=== PATIENT | male | born 1995 | race Caucasian/White ===

== ENCOUNTER 2020-07-30 20:14 | Emergency (ER) | payer SELFPAY ==
--- NOTE | 2020-07-30 20:42 | PC.NURSE ---
i attempted to triage patient. no answer in the lobby at 2034 and 2039.
[2020-07-30 20:54] VITALS: BP 119/59; PULSE 88; RESP 16; TEMP 36.4; O2SAT 97; BMI 26.4
--- NOTE | 2020-07-30 22:02 | ED.SKABFB ---
HPI - Skin/Abscess/Foreign Bdy General Chief complaint: Skin/Abscess/Foreign Body Stated complaint: RIGHT ARM ABSCESSE AND RIGHT SIDE OF NECK Time Seen by Provider: 07/30/20 21:27 Source: patient Mode of arrival: Ambulatory Limitations: no limitations History of Present Illness HPI narrative: 24-year-old male. Admits to being an IV drug abuser. Has multiple track kerr on various portions of his body here for evaluation he thinks is an abscess in his right elbow and on his right ear. He states that he was able to express a small amount of material from the wound on his right ear. He states that the 2 lesions on the inside of his right elbow have been growing for the past couple days. One of them he was able to express a small amount of material out of and did decrease in size. The other 1 he has not attempted to drain. Related Data Previous Rx's Medication Instructions Recorded doxycycline hyclate 100 mg PO BID 10 Days #20 tab 07/30/20 Allergies Allergy/AdvReac Type Severity Reaction Status Date / Time No Known Drug Allergies Allergy Verified 07/30/20 22:07 Review of Systems Constitutional Constitutional: Denies fever(s) and Denies headache(s) ENT Ears, Nose, Mouth, and Throat: Denies headache(s) Integumentary/Breasts Comments: Multiple skin lesions concern for abscess Neurologic Neurologic: Denies behavioral changes and Denies headache(s) Psychiatric Psychiatric: Denies behavioral changes Hematologic/Lymphatic Hematologic/Lymphatic: Denies easy bleeding and Denies easy bruising Allergic/Immunologic Allergic/Immunologic: Denies urticaria Patient History Medical History IV drug abuse (Acute) Social History Smoking Status: Current every day smoker Smoking Status: Current every day smoker tobacco type: cigarettes and vaping alcohol intake frequency: 0-2 drinks per day Substance Use Type: heroin Exam Initial Vital Signs Initial Vital Signs: Vital Signs Temperature 97.6 F 07/30/20 20:54 Pulse Rate 88 07/30/20 20:54 Respiratory Rate 16 07/30/20 20:54 Blood Pressure 119/59 L 07/30/20 20:54 Pulse Oximetry 97 07/30/20 20:54 Const General: cooperative and comfortable Limitations: mental status not altered HENMD Head: normal to inspection and normocephalic Resp Effort & Inspection: normal respiratory effort Skin Other: Patient with a small area of crusting on his right ear. There is no active drainage. There is no erythema around the area. Patient also has 2 areas of redness on the inside of his right elbow. Extrem Other: Full range of motion right elbow Psych Appearance: grossly normal and well kempt Course Orders Ordered: Discontinued Medications Doxycycline Hyclate (Vibramycin) 100 mg PO NOW ONE Stop: 07/30/20 22:03 Last Admin: 07/30/20 22:07 Dose: 100 mg Documented by: KEVIN Vital Signs Vital signs: Vital Signs - 8 hr 07/30/20 20:54 07/30/20 22:11 Temperature 97.6 F Pulse Rate 88 80 Respiratory Rate 16 16 Blood Pressure 119/59 L 104/61 Pulse Oximetry 97 100 MDM - Skin/Abscess/Foreign Bdy MDM Narrative Medical decision making narrative: Bedside ultrasound shows no underlying abscess in the 2 areas in the right antecubital fossa. No indication for incision and drainage. Given his multiple track kerr and also the redness around the area will start him on antibiotics. He was given 1st dose here. Prescription for remainder. Was given return precautions follow up instructions. He expressed understanding and agreement. Discharge Plan Departure Patient Disposition: Home Clinical Impression: Cellulitis Discharge Date/Time: 07/30/20 22:11 Instructions: DI for Cellulitis -- Adult Activity Restrictions/Additional Instructions: Take the antibiotics as directed. Contact your primary provider for follow-up. Return to the emergency department for any new or worsening symptoms Prescriptions: New doxycycline hyclate 100 mg tablet 100 mg PO BID 10 Days Qty: 20 RF: 0 Referrals: Scottie Almanza MD [Primary Care Provider] -
[2020-07-30] MEDS: DOXYCYCLINE HYCLATE 100 MG TABLET PO (22:07)
[2020-07-30 22:11] VITALS: BP 104/61; PULSE 80; RESP 16; O2SAT 100
== END 2020-07-30 22:11 | disposition home or self-care (01) ==
PROVIDERS: Emergency Provider Emergency Medicine; Family Provider Family Medicine; PCP Family Medicine
DX: L03.113 Cellulitis of right upper limb (principal)
CPT/HCPCS: 99283

== ENCOUNTER 2020-09-18 17:42 | Inpatient (IN) | payer OTHER, MEDICAID, SELFPAY ==
[2020-09-18] VITALS (8 sets, daily range): BP systolic 115–144; BP diastolic 57–86; PULSE 78–106; RESP 16; TEMP 36.8–37.3; O2SAT 98–100; BMI 20.2
--- NOTE | 2020-09-18 19:58 | DI.CT.S_ITS ---
PROCEDURE: CT UE LT W CON INDICATIONS: severe pain and swelling, IVDA, deep abscess? TECHNIQUE: After the administration of intravenous contrast, 3 mm axial sections acquired of the left arm, with coronal and sagittal reformats. COMPARISON: None. FINDINGS: Image quality: Excellent. Bones: No fracture or dislocation. No periosteal reaction or sclerosis. No osseous erosion. Soft tissues: Ill-defined subcutaneous fluid collection in the region of the antecubital fossa measuring 4.9 x 2.2 x 1.2 cm, volume of 7 cc, (4/149 and 6/351). There is diffuse subcutaneous edema in the forearm and distal aspect of the proximal left arm. No suspicious calcifications. No radiopaque foreign body. No vascular filling defect identified. Enlarged left axillary lymph node with a short axis diameter of 1 cm, (6/116). Additional shotty left axillary lymph nodes. IMPRESSION: 1. Suspect small abscess in the antecubital fossa of the left arm. Longest dimension measures 4.9 cm and volume of 7 cc. 2. Enlarged left axillary lymph node. Suspect reactive etiology. 3. Underlying bone is unremarkable. No fracture. Dictated by: Tae Maloney M.D. on 09/18/2020 at 21:06 Approved by: Tae Maloney M.D. on 09/18/2020 at 21:16
[2020-09-18 20:01] LABS: Add Manual Diff / Slide Review NO; Basophils Absolute Auto 200 /uL (0-100); Basophils Percent Auto 0.6 % (0-2); Eosinophils Absolute Auto 100 /uL (0-450); Eosinophils Percent Auto 0.4 % (2-4); Hematocrit 39.9 % (41-53); Hemoglobin 13.1 g/dL (13.5-17.5); Lymphocytes Absolute Auto 2800 /uL (1100-4500); Lymphocytes Percent Auto 10.9 % (25-40); Mean Corpuscular HGB Conc 32.8 % (30-36); Mean Corpuscular Hemoglobin 27.8 PG (26-34); Mean Corpuscular Volume 84.7 fL (80-100); Monocytes Absolute Auto 1400 /uL (0-900); Monocytes Percent Auto 5.2 % (3-14); Neutrophils Absolute Auto 21500 /uL (1500-7000); Neutrophils Percent Auto 82.9 % (50-75); Platelet Count 453 X10^3/uL (150-400); Red Blood Cell Count 4.71 X10^6/uL (4.5-5.9); Red Cell Distribution Width 14.8 % (11.6-14.8)
[2020-09-18 20:16] LABS: BUN Creatinine Ratio 22.2 (6-22); Blood Urea Nitrogen 14 mg/dL (9-20); Carbon Dioxide 27 mmol/L (22-32); Chloride 104 mmol/L (98-107); Estimated Glomerular Filt Rate > 60.0 mL/min (>60); Glucose 111 mg/dL (70-100); HEMOLYSIS 26 (0-50); Potassium 4.5 mmol/L (3.4-5.1); Sodium 138 mmol/L (137-145)
[2020-09-18] MEDS: KETOROLAC 60 MG/2 ML VIAL 15 MG IV (20:16)
[2020-09-18] MEDS: VANCOMYCIN 1,500 MG/300 ML PIGGYBACK 200 MG IV (20:17)
--- NOTE | 2020-09-18 20:33 | ED.SKABFB ---
HPI - Skin/Abscess/Foreign Bdy General Chief complaint: Skin/Abscess/Foreign Body Stated complaint: left arm swelling & pain Time Seen by Provider: 09/18/20 18:58 Source: patient Mode of arrival: Ambulatory Limitations: no limitations History of Present Illness HPI narrative: 24-year-old male smoker with history of IV drug abuse presents with severe pain and swelling of his left forearm, stating that he last injected about 2 weeks ago. He denies any fever, chills nor nausea or vomiting. He denies any drainage at home. He has had no runny nose, sore throat or cough and denies any exposure to persons known to have COVID MD complaint: abscess/boil Onset (ago): day(s) Tetanus up to date: no Location: LUE Severity: severe Severity scale (1-10): 10 Quality: burning and aching Pain Consistency: constant Relieving factors: none Exacerbating factors: palpation Context: IVDA Associated symptoms: denies other symptoms Treatments prior to arrival: none Related Data Home Medications Medication Instructions Recorded Confirmed No Known Home Medications 09/18/20 09/18/20 Allergies Allergy/AdvReac Type Severity Reaction Status Date / Time No Known Drug Allergies Allergy Verified 09/18/20 17:52 Review of Systems Constitutional Constitutional: Denies chills, Denies fatigue, Denies fever(s), Denies frequent falls, Denies lethargy and Denies weakness Eyes Eyes: Denies change in vision, Denies eye discharge, Denies irritation and Denies loss of vision ENT Ears, Nose, Mouth, and Throat: Denies change in voice, Denies dizziness, Denies neck pain, Denies sore throat and Denies throat swelling Cardiovascular Cardiovascular: Denies chest pain, Denies irregular heart rhythm, Denies lightheadedness, Denies palpitations, Denies dyspnea, Denies dyspnea on exertion and Denies orthopnea Respiratory Respiratory: Denies cough, Denies dyspnea, Denies dyspnea on exertion and Denies wheezing Gastrointestinal Gastrointestinal: Denies abdominal pain, Denies change in bowel habits, Denies diarrhea, Denies nausea and Denies vomiting Musculoskeletal Musculoskeletal: Denies neck pain and Denies numbness Integumentary/Breasts Skin/Breast: Denies pruritus, Reports erythema, Denies rash, Reports skin pain, Reports skin swelling and Denies wounds Neurologic Neurologic: Denies behavioral changes, Denies confusion, Denies dizziness, Denies frequent falls, Denies loss of vision, Denies numbness and Denies weakness Psychiatric Psychiatric: Denies anxiety, Denies behavioral changes, Denies confusion, Denies depression, Denies homicidal ideation and Denies suicidal ideation Endocrine Endocrine: Denies fatigue, Denies flushing and Denies palpitations Hematologic/Lymphatic Hematologic/Lymphatic: Denies easy bruising Allergic/Immunologic Allergic/Immunologic: Denies urticaria, Denies throat swelling and Denies wheezing Patient History Medical History (Updated 09/19/20 @ 03:51 by Hans Chinchilla DO) Atrial fibrillation IV drug abuse MRSA exposure Family History (Updated 09/18/20 @ 23:44 by ZULMA Lee) Father No significant medical problems Mother No significant medical problems Grandfather Cancer Grandfather Cancer Social History household members: family Smoking Status: Current every day smoker Smoking Status: Current every day smoker tobacco type: cigarettes and vaping alcohol intake frequency: 0-2 drinks per day Substance Use Type: heroin and IV drugs Exam Narrative Exam Narrative: GENERAL: [24] year old patient appears stated age. Well-nourished, well-developed patient, in obvious distress. Complaining of pain in his left arm HEAD: Atraumatic. Normocephalic. EYES: Pupils equal round and reactive. Extraocular motions intact. No scleral icterus. No injection or drainage. ENT: Nose without bleeding, purulent drainage. Throat without erythema, tonsillar hypertrophy or exudate. Airway patent. NECK: Trachea midline. Non tender CARDIOVASCULAR: Regular rate and rhythm without murmurs, gallops, or rubs. RESPIRATORY: Clear to auscultation. Breath sounds equal bilaterally. No wheezes, rales, or rhonchi. GASTROINTESTINAL: Abdomen soft, non-tender, nondistended. EXTREMITIES: Significant pain, swelling and redness on the volar aspect of left forearm just distal to the elbow, no drainage. Compartments are soft, cap refill less than 2 seconds sensation and strength intact, no signs of compartment syndrome.. BACK: Nontender without deformity or crepitance. No flank tenderness. NEURO: AOx3. SKIN: No rash or erythema of visible areas Initial Vital Signs Initial Vital Signs: Vital Signs Temperature 99.1 F 11/17/20 17:50 Pulse Rate 89 09/18/20 17:50 Respiratory Rate 16 09/18/20 17:50 Blood Pressure 121/81 09/18/20 17:50 Pulse Oximetry 99 09/18/20 17:50 Course Course Course Narrative: though the Administrative tab states PCP is Dr. Almanza the patient states that is NOT true and he has no PCP. Orders Ordered: ED Orders 09/18/20 19:45 Basic Metabolic Panel Stat Complete Blood Count AUTO DIFF Stat 09/18/20 19:58 CT UE LT w con Stat 09/18/20 20:30 COVID19 Stat Acetaminophen (Acetaminophen 325 Mg Tablet) 650 mg PO Q6HR PRN PRN Reason: Fever/Mild Pain (1-3) Bisacodyl (Bisacodyl 10 Mg Supp) 10 mg OR PRN PRN PRN Reason: Constipation Docusate Sodium (Docusate 100 Mg Capsule) 100 mg PO BID PRINCE Hydromorphone HCl (Hydromorphone 0.5 Mg Inj) 0.5 mg IV Q4H PRN PRN Reason: Pain, Moderate (4-6) Last Admin: 09/19/20 02:07 Dose: 0.5 mg Documented by: YAMEL Sodium Chloride (Normal Saline 0.9%) 1,000 mls @ 100 mls/hr IV CONT [facility] Last Admin: 09/19/20 00:15 Dose: 100 mls/hr Documented by: YAMEL Vancomycin HCl/Dextrose (Vancomycin) 1,500 mg in 300 mls @ 200 mls/hr IV Q12H [facility] Last Admin: 09/19/20 00:16 Dose: 200 mls/hr Documented by: YAMEL Naloxone HCl (Naloxone 0.4 Mg/Ml Vial) 0.2 mg IV Q2MIN PRN PRN Reason: Opiate Reversal Nicotine (Nicotine 21 Mg Patch) 21 mg TOP DAILY [facility] Last Admin: 09/19/20 00:39 Dose: 21 mg Documented by: YAMEL Ondansetron HCl (Ondansetron 4 Mg/2 Ml Inj) 4 mg IV Q8HR PRN PRN Reason: Nausea And Vomiting Oxycodone HCl (Oxycodone Ir 5 Mg Tablet) 5 mg PO Q4HR PRN PRN Reason: Pain, Moderate (4-6) Oxycodone HCl (Oxycodone Ir 10 Mg Tablet) 10 mg PO Q4HR PRN PRN Reason: Pain, Severe (7-10) Polyethylene Glycol (Polyethylene Glycol 3350 17 Gm Powd.Pack) 17 gm PO DAILY PRN PRN Reason: Constipation Discontinued Medications Hydromorphone HCl (Hydromorphone 0.5 Mg Inj) 0.5 mg IV NOW ONE Stop: 09/18/20 21:19 Last Admin: 09/18/20 21:25 Dose: 0.5 mg Documented by: BATSHEVA Hydromorphone HCl (Hydromorphone 0.5 Mg Inj) 1 mg IV NOW ONE Stop: 09/18/20 22:46 Last Admin: 09/18/20 22:51 Dose: 1 mg Documented by: GIOVANNA Vancomycin HCl/Dextrose (Vancomycin) 1,500 mg in 300 mls @ 200 mls/hr IV NOW ONE Stop: 09/18/20 21:29 Last Infusion: 09/18/20 22:03 Dose: 0 mls/hr Documented by: Admin: 09/18/20 20:17 Dose: 200 mls/hr Documented by: RADHA Ketorolac Tromethamine (Ketorolac 60 Mg/2 Ml Vial) 15 mg IV NOW ONE Stop: 09/18/20 19:59 Last Admin: 09/18/20 20:16 Dose: 15 mg Documented by: RADHA Oxycodone HCl (Oxycodone Ir 5 Mg Tablet) 5 mg PO Q6HR PRN PRN Reason: Pain, Moderate (4-6) Oxycodone HCl (Oxycodone Ir 10 Mg Tablet) 10 mg PO Q6HR PRN PRN Reason: Pain, Severe (7-10) Last Admin: 09/19/20 00:14 Dose: 10 mg Documented by: YAMEL Vancomycin HCl (Vancomycin Per Pharmacy) 1 request MISC NOW ONE Stop: 09/18/20 22:50 Consultations Consultation #1: call to gen surg (Elvin) who has reviewed CT and agrees with admission, but asks that patient be admitted to hospitalist, NPO after midnight, possible/likely OR tomorrow Consultation #2: Hospitalist is happy to accept Vital Signs Vital signs: Vital Signs - 8 hr 09/18/20 20:05 09/18/20 20:30 11/17/20 21:00 Pulse Rate 81 78 83 Blood Pressure 144/81 H 138/86 Pulse Oximetry 100 100 99 09/18/20 21:30 09/18/20 22:00 09/18/20 22:30 Pulse Rate 88 85 85 Blood Pressure 142/71 H 115/67 117/57 L Pulse Oximetry 98 100 99 MDM - Skin/Abscess/Foreign Bdy Lab Data Result diagrams: 09/18/20 19:45 09/18/20 19:45 Labs: Lab Results 09/18/20 09/18/20 09/18/20 Range/Units 19:45 19:45 20:30 WBC 26.0 H (4.5-11.0) X10^3/uL RBC 4.71 (4.5-5.9) X10^6/uL Hgb 13.1 L (13.5-17.5) g/dL Hct 39.9 L (41-53) % MCV 84.7 (80-100) fL MCH 27.8 (26-34) PG MCHC 32.8 (30-36) % RDW 14.8 (11.6-14.8) % Plt Count 453 H (150-400) X10^3/uL Neut % (Auto) 82.9 H (50-75) % Lymph % (Auto) 10.9 L (25-40) % [place] % (Auto) 5.2 (3-14) % Eos % (Auto) 0.4 L (2-4) % Baso % (Auto) 0.6 (0-2) % Neut # (Auto) 73932 H (0752-2472) /uL Lymph # (Auto) 2800 (9667-4267) /uL [place] # (Auto) 1400 H (0-900) /uL Eos # (Auto) 100 (0-450) /uL Baso # (Auto) 200 H (0-100) /uL Sodium 138 (137-145) mmol/L Potassium 4.5 (3.4-5.1) mmol/L Chloride 104 (98-107) mmol/L Carbon Dioxide 27 (22-32) mmol/L BUN 14 (9-20) mg/dL Creatinine 0.63 L (0.66-1.25) mg/dL Estimated GFR > 60.0 (>60) mL/min BUN/Creatinine Ratio 22.2 H (6-22) Glucose 111 H (70-100) mg/dL Calcium 9.0 (8.4-10.2) mg/dL COVID-19 PCR Negative (Negative) Imaging Data LUE CT: Radiologist's Impression: [address] [id number] Scan ReportSigned Patient: Gus Huizar MMR#: [id number]: [id number]:[id number]/Sex: 24 / MDate of Service: 09/18/20Loc: EDAccession Number: [id number] Procedure: CT UE LT w con Ordering Provider: Hans Chinchilla D.O. PROCEDURE: CT UE LT W CON INDICATIONS: severe pain and swelling, IVDA, deep abscess? TECHNIQUE: After the administration of intravenous contrast, 3 mm axial sections acquired of the left arm, with coronal and sagittal reformats. COMPARISON: None. FINDINGS: Image quality: Excellent. Bones: No fracture or dislocation. No periosteal reaction or sclerosis. No osseous erosion. Soft tissues: Ill-defined subcutaneous fluid collection in the region of the antecubital fossa measuring 4.9 x 2.2 x 1.2 cm, volume of 7 cc, (4/149 and 6/351). There is diffuse subcutaneous edema in the forearm and distal aspect of the proximal left arm. No suspicious calcifications. No radiopaque foreign body. No vascular filling defect identified. Enlarged left axillary lymph node with a short axis diameter of 1 cm, (6/116). Additional shotty left axillary lymph nodes. IMPRESSION: 1. Suspect small abscess in the antecubital fossa of the left arm. Longest dimension measures 4.9 cm and volume of 7 cc. 2. Enlarged left axillary lymph node. Suspect reactive etiology. 3. Underlying bone is unremarkable. No fracture. Dictated by: Tae Maloney M.D. on 09/18/2020 at 21:06 Approved by: Tae Maloney M.D. on 09/18/2020 at 21:16 Discharge Plan Departure Patient Disposition: Admitted As Inpatient Clinical Impression: Abscess of skin or subcutaneous tissue, Cellulitis Admit Date/Time: 09/18/20 22:36 Admit Provider: Jose Restrepo
--- NOTE | 2020-09-18 20:49 | PC.NURSE ---
While the patient was in the lobby following triage and before being moved to room 2 he informed me 2 times that his pain was getting worse. I informed him that I was waiting for a room each time checking pts radial pulse and cap refill which were normal .
[2020-09-18 21:06] LABS: COVID19 -Nasal RAPID Negative (Negative)
[2020-09-18] MEDS: HYDROMORPHONE 0.5 MG INJ IV (21:25)
[2020-09-18] MEDS: HYDROMORPHONE 0.5 MG INJ 1 MG IV (22:51)
--- NOTE | 2020-09-18 23:26 | P.HP_ITS ---
History of Present Illness History of Present Illness Date Patient Seen: 09/18/20 Time Patient Seen: 23:05 Chief complaint: left arm swelling & pain Narrative: Mr. Gus Huizar is 24-year-old male with a past medical history significant for IV drug abuse, polysubstance abuse, atrial fibrillation and history of cerebellar aneurysm who presents to the ER with left arm pain. Patient presents with swelling from the distal upper arm to the hand with an abscess in the left antecubital fossa. Patient endorses IV drug abuse for the last several months using heroin as well as endorses smoking occasional meth. He last injected 2 weeks ago in left arm and over the last several days has had progressive pain swelling and redness. Patient had similar presentation on 07/30/2020 when he presented to the ER for cellulitis of the right antecubital fossa at which time he was treated and discharged on doxycycline. Patient further and sources that other individuals in the household have MRSA. Patient states he has been sober for the last 2 weeks and has been going through withdrawals complaining of runny nose but denies nausea vomiting, abdominal pain or tremors. He denies complaints of fevers or chills, flu or cold symptoms aside from the runny nose as described. He has had no known COVID-19 exposures. He denies headaches, dizziness or vision changes. Reports no complaints of chest pain or palpitations though he does report a history of atrial fibrillation with the last episode occurring approximately 6 months ago. He states that he can tell when the arrhythmia occurs and is able to cough and terminate the rhythm. Patient denies shortness of breath cough or wheeze. He denies epigastric or abdominal pain has a nausea vomiting and endorses a history of constipation secondary to opiate abuse. 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 Upon arrival to the ER patient has a temperature 99.1?, heart rate of 89, blood pressure 121/81, respirations 16 saturating 99% on room air. A CT of the left upper extremity is obtained finding a fluid collection in the region of the a antecubital fossa measuring 4.9 by 2.2 x 1.2 cm with diffuse subcutaneous edema in the forearm and distal proximal arm, enlarged left axillary lymph node. On laboratory analysis he has white count of 26.0, hemoglobin of 13.1, hematocrit of 39.9 platelets 153. His electrolytes within normal range knee has a BUN of 14 and creatinine 0.63. His nonfasting glucose is 111. COVID screening is negative. Dr. Oconnor is contacted through the emergency department increase to consult. The patient admitted to the medicine service for cellulitis with abscess. Patient History Medical History (Updated 09/18/20 @ 23:43 by ZULMA Lee) Atrial fibrillation IV drug abuse MRSA exposure Family & Social History Family History (Updated 09/18/20 @ 23:44 by ZULMA Lee) Father No significant medical problems Mother No significant medical problems Grandfather Cancer Grandfather Cancer Safety & Behavioral: Feels Safe in Current Yes Environment Been Physically Hurt or No Threatened By a Person Tobacco & Substance use: Smoking Status Current every day smoker alcohol intake frequency 0-2 drinks per day Substance Use Type IV drugs,heroin Meds Home Medications and Allergies Home Medications Medication Instructions Recorded Confirmed Type No Known Home Medications 09/18/20 09/18/20 History Allergies Allergy/AdvReac Type Severity Reaction Status Date / Time No Known Drug Allergies Allergy Verified 09/18/20 17:52 Review of Systems Review of Systems ROS: Yes All systems reviewed with the patient and are negative except as otherwise documented Exam Vital Signs (past 8 hours): - 09/18/20 17:50 09/18/20 20:05 09/18/20 20:30 Temperature 99.1 F Pulse Rate 89 81 78 Respiratory Rate 16 Blood Pressure 121/81 144/81 H Pulse Oximetry 99 100 100 09/18/20 21:00 Temperature Pulse Rate 83 Respiratory Rate Blood Pressure 138/86 Pulse Oximetry 99 Oxygen Delivery Method Room Air Narrative Exam Narrative: GENERAL APPEARANCE: well developed, slender male, BMI 20.2 in mild pain without acute distress. HEENT: Normocephalic, PERRLA, conjunctiva clear, EOMs intact without nystagmus, no sinus tenderness to percussion, no rhinorrhea, mucous membranes are moist and pink without lesions or exudate. NECK/THYROID: neck supple, no JVD, no carotid bruit, no thyromegaly, trachea midline. LYMPH NODES: no cervical or supraclavicular lymphadenopathy. SKIN: [place], warm and dry, no visible lesions, rashes, ulcerations or petechiae. HEART: Tachycardic rate with a regular rhythm, S1-S2, no murmur, no rubs or gallops, brisk capillary refill, no edema LUNGS: clear to auscultation bilaterally, no coarseness crackles or wheezing, no cough present CHEST: Symmetrical movement, no accessory muscle use, good tidal volume. ABDOMEN: Soft, scaphoid, no abdominal tenderness, no guarding or peritoneal signs, no organomegaly, no flank or suprapubic tenderness, active bowel tones. BACK: Normal curvature, nontender to palpation, no CVA tenderness on percussion EXTREMITIES: Swelling and redness LUE distal 3rd of upper arm extending to hand, marked redness with abscess medial left antecubital fossa, distal circulation movement intact. NEUROLOGIC: AAO x4, cranial nerves II-XII grossly intact, D scree sensation ulnar and radial aspects of left hand onset since arriving in ER. PSYCH: Good eye contact, briskly interactive, cooperative, stable behavior. Objective Labs Result Diagrams: 09/18/20 19:45 09/18/20 19:45 Labs: Laboratory Results - last 24 hr 09/18/20 09/18/20 09/18/20 19:45 19:45 20:30 WBC 26.0 H RBC 4.71 Hgb 13.1 L Hct 39.9 L MCV 84.7 MCH 27.8 MCHC 32.8 RDW 14.8 Plt Count 453 H Neut % (Auto) 82.9 H Lymph % (Auto) 10.9 L [place] % (Auto) 5.2 Eos % (Auto) 0.4 L Baso % (Auto) 0.6 Neut # (Auto) 85620 H Lymph # (Auto) 2800 [place] # (Auto) 1400 H Eos # (Auto) 100 Baso # (Auto) 200 H Sodium 138 Potassium 4.5 Chloride 104 Carbon Dioxide 27 BUN 14 Creatinine 0.63 L Estimated GFR > 60.0 BUN/Creatinine Ratio 22.2 H Glucose 111 H Calcium 9.0 COVID-19 PCR Negative Assessment & Plan Assessment & Plan narrative: This is a 24-year-old male patient with a history of IV drug abuse with heroin who presents with cellulitis with abscess formation of the left arm. 1. Cellulitis left arm with abscess left antecubital fossa, acute, present on admission, active. -patient reports onset swelling 2 weeks ago with formation of abscess over the last few days. -CT scan finds of wound collection in the region of the and acute fossa ti[place] uring 4.9 x 2.2 x 1.2 cm. Diffuse subcutaneous edema the form and distal proximal arm. -white count is elevated at 26.0. Patient endorses exposure to MRSA from other household members. Will obtain MRSA PCR. -ordered vancomycin 1500 mg IV every 12 hours 1st dose given in the ER, requested pharmacy to continue dosing. -Dr. Oconnor has agreed to consult and we appreciate her evaluation and recommen dations. -patient will be NPO, IV normal saline 100 mL per hour. -will recheck CBC in the morning 2. IV drug abuse, chronic. -patient endorses only injecting care when but has also smoked methamphetamine. -will obtain a urine drug screen. -patient states his desire to quit reports being sober for 2 weeks and reports going through withdrawal symptoms relieved with Dilaudid administered in the em ergency department. -patient had previous cellulitis without abscess in the right arm that was seen in the ER 2 months ago is successfully treated outpatient with doxycycline. -lengthy discussion and teaching on drug abuse, complications and risks. 3. Tobacco Abuse, chronic. -patient reports smoking 1.5-2 packs per day though reports he is trying to quit cigarettes as well. -counseling on smoking greater than 3 and less than 10 minutes. -ordered topical nicotine patch. 4. History of paroxysmal atrial fibrillation, presently in sinus rhythm chronic, stable. -patient reports last episode occurred approximately 6 months ago. He is able to convert the rhythm with coughing. -patient states he was hospitalized with a rhythm, will attempt to obtain medical records. VTE prophylaxis: SCDs, no chemical prophylaxis pending surgery IV fluid: Normal saline 100 cc per Diet: NPO Code status: Full code, the patient designates his mother Aliza Huizar to be his surrogate decision maker. The patient is admitted to the hospital due to the severity of his symptoms and risk for complications and adverse events related to cellulitis and abscess requiring IV antibiotics and surgical intervention. The patient is admitted as an inpatient with expected length of stay to be greater than 2 midnights. COVID-19 COVID-19 status: Negative Result date/Date tested (Pos, Neg/Pending): 09/18/20 Scores GCS [place] coma scale eye opening: Spontaneous [place] coma scale verbal response: Orientated [place] coma scale motor response: Obey commands [place] coma scale total score: 15
[2020-09-19] VITALS (20 sets, daily range): BP systolic 96–141; BP diastolic 41–80; PULSE 88–108; RESP 12–22; TEMP 36.7–39.6; O2SAT 95–100; BMI 20.2
[2020-09-19] MEDS: OXYCODONE IR 10 MG TABLET PO ×3 (00:14→08:08)
[2020-09-19] MEDS: SODIUM CHLORIDE 0.9% 1,000 ML 100 ML IV ×2 (00:15→10:12)
[2020-09-19] MEDS: VANCOMYCIN 1,500 MG/300 ML PIGGYBACK 200 MG IV (00:16)
[2020-09-19] MEDS: NICOTINE 21 MG PATCH TOP (00:39)
[2020-09-19] MEDS: HYDROMORPHONE 0.5 MG INJ IV (02:07)
[2020-09-19] MEDS: HYDROMORPHONE 1 MG INJ IV ×2 (04:38→10:12)
[2020-09-19 07:23] LABS: Add Manual Diff / Slide Review NO; Basophils Absolute Auto 200 /uL (0-100); Basophils Percent Auto 0.7 % (0-2); Eosinophils Absolute Auto 100 /uL (0-450); Eosinophils Percent Auto 0.2 % (2-4); Hematocrit 37.2 % (41-53); Hemoglobin 12.4 g/dL (13.5-17.5); Lymphocytes Absolute Auto 2500 /uL (1100-4500); Lymphocytes Percent Auto 10.8 % (25-40); Mean Corpuscular HGB Conc 33.3 % (30-36); Mean Corpuscular Volume 84.2 fL (80-100); Monocytes Absolute Auto 1900 /uL (0-900); Neutrophils Absolute Auto 19000 /uL (1500-7000); Neutrophils Percent Auto 80.3 % (50-75); Platelet Count 408 X10^3/uL (150-400); Red Blood Cell Count 4.42 X10^6/uL (4.5-5.9); Red Cell Distribution Width 15.1 % (11.6-14.8); White Blood Cell Count 23.7 X10^3/uL (4.5-11.0)
[2020-09-19] MEDS: DOCUSATE 100 MG CAPSULE PO ×2 (08:07→21:26)
[2020-09-19] MEDS: PIPERACILLIN-TAZO 4.5 GM/100 ML FROZ.PIGGY IV ×3 (08:18→18:44)
--- NOTE | 2020-09-19 08:46 | PM.CN ---
History of Present Illness Consult details Date Patient Seen: 09/19/20 Time Patient Seen: 08:47 Chief complaint: left arm swelling & pain Reason for consult: left arm cellulitis/abscess Narrative: This is a 24 yo man w PMH of IVDA, polysubstance abuse, A fib, and history of cerebellar aneurysm who came into the ER last night with left arm pain and swelling for 3-4 days. He reports IV drug abuse for the last several months using heroin as well as occasionally smoking meth. He last injected 2 weeks ago in left arm and over the last several days has had progressive pain, swelling, and redness of the left mid arm around the AC fossa. He came in with a similar presentation on 07/30/2020 at which time he was treated and discharged on doxycycline. He reports that other individuals in the household have MRSA. ROS: Patient states he has been sober for the last 2 weeks and has been going through withdrawals complaining of runny nose but denies nausea vomiting, abdominal pain or tremors. He denies fever/chills, flu or cold symptoms aside from the runny nose as described. He has had no known COVID-19 exposures. He denies headaches, dizziness or vision changes. Reports no complaints of chest pain or palpitations though he does report a history of atrial fibrillation with the last episode occurring approximately 6 months ago. He states that he can tell when the arrhythmia occurs and is able to cough and terminate the rhythm. Patient denies shortness of breath cough or wheeze. He denies epigastric or abdominal pain has a nausea vomiting and endorses a history of constipation secondary to opiate abuse. 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 Thirteen system review is otherwise negative other than as mentioned below and in HPI. PE: GENERAL: Alert, uncomfortable but in no acute distress, pale, mildly diaphoretic. Appears stated age. Answers questions promptly and appropriately. Vital signs noted. HENT: Normocephalic, atraumatic. Hearing intact. EYES: Conjunctiva pink, sclera white, no periorbital swelling. CARDIOVASCULAR: Regular rate. No pedal edema. RESPIRATORY: Non-tachypneic, breathing comfortably on room air. GASTROINTESTINAL: Abdomen soft and non-distended Extremities: Left upper extremity with moderate edema and erythema in proximal forearm around the AC fossa. The area is very tender to palpation, and on passive range of motion of the elbow. His compartments are soft, and and he has normal intact strength, sensation, and range of motion in the right hand and forearm. NEURO: Alert and Oriented X 3. No gross sensory deficits, or cognitive issues. PSYCH: Appropriate affect and mood. Meds Home Medications and Allergies Home Medications Medication Instructions Recorded Confirmed Type No Known Home Medications 09/18/20 09/18/20 History Allergies Allergy/AdvReac Type Severity Reaction Status Date / Time No Known Drug Allergies Allergy Verified 09/18/20 17:52 Exam Vital Signs (past 8 hours): - 09/19/20 04:20 Temperature 98.0 F Pulse Rate 99 H Respiratory Rate 22 Blood Pressure 129/77 Pulse Oximetry 100 Oxygen Delivery Method Room Air Oxygen Flow Rate [address] scan left arm: Radiologist's impression: [address] [id number] Scan ReportSigned Patient: Gus Huizar MMR#: [id number]: [id number]:[id number]/Sex: 24 / MDate of Service: 09/18/20Loc: EDAccession Number: [id number] Procedure: CT UE LT w con Ordering Provider: Hans Chinchilla D.O. PROCEDURE: CT UE LT W CON INDICATIONS: severe pain and swelling, IVDA, deep abscess? TECHNIQUE: After the administration of intravenous contrast, 3 mm axial sections acquired of the left arm, with coronal and sagittal reformats. COMPARISON: None. FINDINGS: Image quality: Excellent. Bones: No fracture or dislocation. No periosteal reaction or sclerosis. No osseous erosion. Soft tissues: Ill-defined subcutaneous fluid collection in the region of the antecubital fossa measuring 4.9 x 2.2 x 1.2 cm, volume of 7 cc, (4/149 and 6/351). There is diffuse subcutaneous edema in the forearm and distal aspect of the proximal left arm. No suspicious calcifications. No radiopaque foreign body. No vascular filling defect identified. Enlarged left axillary lymph node with a short axis diameter of 1 cm, (6/116). Additional shotty left axillary lymph nodes. IMPRESSION: 1. Suspect small abscess in the antecubital fossa of the left arm. Longest dimension measures 4.9 cm and volume of 7 cc. 2. Enlarged left axillary lymph node. Suspect reactive etiology. 3. Underlying bone is unremarkable. No fracture. Dictated by: Tae Maloney M.D. on 09/18/2020 at 21:06 Approved by: Tae Maloney M.D. on 09/18/2020 at 21:16 Labs Result Diagrams: 09/19/20 07:15 09/18/20 19:45 Labs: Laboratory Results - last 24 hr 09/18/20 09/18/20 09/18/20 19:45 19:45 20:30 WBC 26.0 H RBC 4.71 Hgb 13.1 L Hct 39.9 L MCV 84.7 MCH 27.8 MCHC 32.8 RDW 14.8 Plt Count 453 H Neut % (Auto) 82.9 H Lymph % (Auto) 10.9 L [place] % (Auto) 5.2 Eos % (Auto) 0.4 L Baso % (Auto) 0.6 Neut # (Auto) 51636 H Lymph # (Auto) 2800 [place] # (Auto) 1400 H Eos # (Auto) 100 Baso # (Auto) 200 H Sodium 138 Potassium 4.5 Chloride 104 Carbon Dioxide 27 BUN 14 Creatinine 0.63 L Estimated GFR > 60.0 BUN/Creatinine Ratio 22.2 H Glucose 111 H Calcium 9.0 Nasal Screen MRSA (PCR) COVID-19 PCR Negative 09/19/20 09/19/20 00:30 07:15 WBC 23.7 H RBC 4.42 L Hgb 12.4 L Hct 37.2 L MCV 84.2 MCH 28.0 MCHC 33.3 RDW 15.1 H Plt Count 408 H Neut % (Auto) 80.3 H Lymph % (Auto) 10.8 L [place] % (Auto) 8.0 Eos % (Auto) 0.2 L Baso % (Auto) 0.7 Neut # (Auto) 75819 H Lymph # (Auto) 2500 [place] # (Auto) 1900 H Eos # (Auto) 100 Baso # (Auto) 200 H Sodium Potassium Chloride Carbon Dioxide BUN Creatinine Estimated GFR BUN/Creatinine Ratio Glucose Calcium Nasal Screen MRSA (PCR) Negative for mrsa COVID-19 PCR Assessment & Plan Assessment and plan (1) Abscess of skin or subcutaneous tissue: Qualifiers: Laterality: left Site of cutaneous abscess: extremity Site of cutaneous abscess of extremity: upper extremity Qualified Code(s): L02.414 - Cutaneous abscess of left upper limb Status: Acute (2) Cellulitis: Qualifiers: Laterality: left Site of cellulitis: extremity Site of cellulitis of extremity: upper extremity Qualified Code(s): L03.114 - Cellulitis of left upper limb Status: Acute (3) Atrial fibrillation: Status: Inactive (4) IV drug abuse: Status: Acute (5) MRSA exposure: Problem details: Household members with MRSA Status: Inactive Assessment & Plan narrative: This is a 24-year-old man with history of IV drug abuse, and the left arm cellulitis with a likely deep abscess in the forearm. I had a discussion with the patient regarding the risks and benefits of opening and draining this abscess. I explained that it may not make him suddenly feel better, and it will cause more pain since we are making incision to drain this abscess. However, given that it appears he has a complex infection is not likely to improve quickly without draining this deeper abscess collection. Risks and benefits were discussed including risk of bleeding, infection, damage to nearby structures such as nerves or vessels, prolonged hospitalization, prolonged wound care, scarring, neurovascular dysfunction of the hand or forearm, worsening infection, need for additional procedures. The patient desires to proceed with I and D of his left forearm abscess. Recommendations: Continue IV antibiotics, IV fluids, pain medication, coverage for drug withdrawals, NPO, plan for I and D of forearm as soon as we have an operative time available this afternoon COVID-19 COVID-19 status: Negative Result date/Date tested (Pos, Neg/Pending): 09/19/20 Time Spent With Patient Time with patient: 25 - 35 minutes
[2020-09-19] MEDS: LORazepam 2 MG/ML INJ IV (09:02)
[2020-09-19] MEDS: VANCOMYCIN 1,250 MG/250 ML PIGGYBACK 250 MG IV ×2 (12:03→20:07)
--- NOTE | 2020-09-19 13:12 | PM.PN.1 ---
Subjective Subjective Date Patient Seen: 09/19/20 Time Patient Seen: 13:12 Interval history: Mr. Gus Huizar is 24-year-old male with a past medical history significant for IV drug abuse, polysubstance abuse, atrial fibrillation and history of cerebellar aneurysm who was admitted with a left arm abscess and cellulitis secondary to intravenous drug use. He has been febrile today, he still is in quite a bit of pain and he was quite agitated early this morning but this improved with a dose of Ativan. His leukocytosis improved slightly. He is planned to go to the OR today with Dr. Antunez from surgery for an I&D. He has been started on Zosyn and vanc given his history drug use. Exam Vital Signs (past 8 hours): - 09/19/20 07:22 09/19/20 12:13 09/19/20 12:34 Temperature 100.7 F H 100.3 F H Pulse Rate 99 H 96 H Respiratory Rate 17 16 Blood Pressure 119/79 139/80 Pulse Oximetry 100 98 Oxygen Delivery Method Room Air Oxygen Flow Rate 0 Narrative Exam Narrative: GENERAL APPEARANCE: well developed, slender male, BMI 20.2 in mild pain without acute distress. HEENT: Normocephalic, PERRLA, conjunctiva clear, EOMs intact without nystagmus, no sinus tenderness to percussion, no rhinorrhea, mucous membranes are moist and pink without lesions or exudate. NECK/THYROID: neck supple, no JVD, no carotid bruit, no thyromegaly, trachea midline. LYMPH NODES: no cervical or supraclavicular lymphadenopathy. SKIN: [place], warm and dry, no visible lesions, rashes, ulcerations or petechiae. HEART: RRR, S1-S2, no murmur, no rubs or gallops, brisk capillary refill, no edema LUNGS: clear to auscultation bilaterally, no coarseness crackles or wheezing, no cough present CHEST: Symmetrical movement, no accessory muscle use, good tidal volume. ABDOMEN: Soft, scaphoid, no abdominal tenderness, no guarding or peritoneal signs, no organomegaly, no flank or suprapubic tenderness, active bowel tones. BACK: Normal curvature, nontender to palpation, no CVA tenderness on percussion EXTREMITIES: Tense swelling and redness LUE distal 3rd of upper arm extending to hand, improved redness with abscess medial left antecubital fossa, distal circulation movement intact. NEUROLOGIC: AAO x4, cranial nerves II-XII grossly intact, sensation intact to L arm. PSYCH: Good eye contact, briskly interactive, cooperative, stable behavior. Objective Labs Result Diagrams: 09/19/20 07:15 09/18/20 19:45 Labs: Laboratory Results - last 24 hr 09/18/20 09/18/20 09/18/20 19:45 19:45 20:30 WBC 26.0 H RBC 4.71 Hgb 13.1 L Hct 39.9 L MCV 84.7 MCH 27.8 MCHC 32.8 RDW 14.8 Plt Count 453 H Neut % (Auto) 82.9 H Lymph % (Auto) 10.9 L [place] % (Auto) 5.2 Eos % (Auto) 0.4 L Baso % (Auto) 0.6 Neut # (Auto) 14266 H Lymph # (Auto) 2800 [place] # (Auto) 1400 H Eos # (Auto) 100 Baso # (Auto) 200 H Sodium 138 Potassium 4.5 Chloride 104 Carbon Dioxide 27 BUN 14 Creatinine 0.63 L Estimated GFR > 60.0 BUN/Creatinine Ratio 22.2 H Glucose 111 H Calcium 9.0 Nasal Screen MRSA (PCR) COVID-19 PCR Negative 09/19/20 09/19/20 00:30 07:15 WBC 23.7 H RBC 4.42 L Hgb 12.4 L Hct 37.2 L MCV 84.2 MCH 28.0 MCHC 33.3 RDW 15.1 H Plt Count 408 H Neut % (Auto) 80.3 H Lymph % (Auto) 10.8 L [place] % (Auto) 8.0 Eos % (Auto) 0.2 L Baso % (Auto) 0.7 Neut # (Auto) 65818 H Lymph # (Auto) 2500 [place] # (Auto) 1900 H Eos # (Auto) 100 Baso # (Auto) 200 H Sodium Potassium Chloride Carbon Dioxide BUN Creatinine Estimated GFR BUN/Creatinine Ratio Glucose Calcium Nasal Screen MRSA (PCR) Negative for mrsa COVID-19 PCR Assessment & Plan Assessment & Plan narrative: This is a 24-year-old male patient with a history of IV drug abuse with heroin who presents with cellulitis with abscess formation of the left arm. 1. Cellulitis left arm with abscess left antecubital fossa, acute, present on admission, active. -patient reports onset swelling 2 weeks ago with formation of abscess over the last few days. -CT scan finds of wound collection in the region of the and acute fossa measuring 4.9 x 2.2 x 1.2 cm. Diffuse subcutaneous edema the form and distal proximal arm. -white count is elevated at 26.0 on admission, improving today to 23.7. -ordered vancomycin 1500 mg IV every 12 hours 1st dose given in the ER, requested pharmacy to continue dosing. Started zosyn for pseudomonal coverage given IVDU. -Dr. Oconnor has agreed to consult and we appreciate her evaluation and recommendations. Plan for OR later today. -patient will be NPO, IV normal saline 100 mL per hour. 2. IV drug abuse, chronic. -patient endorses only injecting care when but has also smoked methamphetamine. -urine drug screen ordered. -patient states his desire to quit reports being sober for approx. 5 days and reports going through withdrawal symptoms relieved with Dilaudid administered in the emergency department. Have also ordered ativan as needed. -patient had previous cellulitis without abscess in the right arm that was seen in the ER 2 months ago is successfully treated outpatient with doxycycline. -lengthy discussion and teaching on drug abuse, complications and risks was performed by admitting provider. Social work consulted. 3. Tobacco Abuse, chronic. -patient reports smoking 1.5-2 packs per day though reports he is trying to quit cigarettes as well. -counseling on smoking greater than 3 and less than 10 minutes. -continue topical nicotine patch. 4. History of paroxysmal atrial fibrillation, presently in sinus rhythm chronic, stable. -patient reports last episode occurred approximately 6 months ago. He reports he is able to convert the rhythm with coughing. -patient states he was hospitalized with a rhythm, will attempt to obtain medical records but no records were found of this arrythmia. Will continue on tele. VTE prophylaxis: SCDs, no chemical prophylaxis pending surgery IV fluid: Normal saline 100 cc per Diet: NPO Code status: Full code, the patient designates his mother Aliza Huizar to be his surrogate decision maker. Dispo: admitted as inpatient, will likely need IV antibiotics for atleast a few more days prior to discharge home. COVID-19 COVID-19 status: Negative Quality VTE Deep Vein Thrombosis/Pulmonary Embolism Present on Admission: No
[2020-09-19] MEDS: LACTATED RINGERS 1,000 ML 42 ML IV (15:07)
--- NOTE | 2020-09-19 15:10 | PM.PREOP ---
Pre-operative Note COVID-19 COVID-19 status: Negative Result date/Date tested (Pos, Neg/Pending): 09/19/20 Interval Note History & Physical reviewed/Exam performed by Physician: Yes Changes to H&P: No
--- NOTE | 2020-09-19 15:11 | SUR.HOLD ---
1500 Temp 103.2; multiple blankets removed. Alert/oriented. Rates pain 8/10 upon picking him up.
--- NOTE | 2020-09-19 15:14 | CM.IDA ---
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 Patient arrives w/swelling and pain in his left arm and found to have cellulitis requiring I+D this afternoon. PCP: No PCP Payer: [employer] ACQUISITION LEAD consult requested for RUPERTO assessment on behalf of this 24 yo male, polysubstance user, h/o meth, IV Heroin and ETOH, w/ MRSA exposure (per chart). This ACQUISITION LEAD requested by AGATHA Tena to speak w/patient's father this morning while he was at bedside (before leaving for work on [employer]), permission from patient to speak freely w/his Dad. Patient was on the phone w/admission counselor this AM during this conversation, patient formerly Self Pay, now signed up for [employer] by admission counselor Dahiana Hernandez. According to brief conversation w/Dad; patient had been living at his house but Dad has kicked him out recently d/t continued drug use and unwillingness to seek treatment. Patient's parents have paid out of pocket multiple times for inpatient drug rehab for patient. Dad states he told me today he is ready (for sobriety) and Dad is hopeful this remains true. Dad will take patient home upon DC if patient is in the process of securing treatment. This ACQUISITION LEAD briefly explains to patient's father the process, if patient agreeable, of securing a bed at an inpatient treatment facility using Medicaid; 1. completion of RUPERTO assessment by a licensed agency (either while patient is admitted vs outpatient upon DC) 2. RUPERTO assessment completed and faxed to an accepting inpatient treatment facility 3. review by inpatient treatment facility, if acceptance, wait for bed availability This ACQUISITION LEAD following closely, patient off the floor for I+D this afternoon, will plan to complete RUPERTO/DCP assessment tomorrow. Patient expected to need IV abx for at least 24-48 hrs, according to Dr Lux Ybarra, SRINIVASA
--- NOTE | 2020-09-19 15:14 | SUR.HOLD ---
going into the OR, denies any family history of complications from anesthesia; denies allergies.
--- NOTE | 2020-09-19 15:27 | SUR.OPER ---
Supine on padded OR bed, head on pillow, arms secured on padded arm boards at <90 degrees abduction, legs uncrossed, safety belt at thigh, tape over blanket over lower legs.
[2020-09-19] MEDS: BUPIVACAINE 0.25% W/ EPI (PF) 10 ML VIAL 20 ML INJ (15:39)
[2020-09-19] MEDS: BUPIVACAINE LIPOSOME 266 MG/20 ML VIAL INJ (15:40)
--- NOTE | 2020-09-19 15:59 | P.OP_ITS ---
Operative Date/Time/Diagnoses Date of procedure: 09/19/20 Time of procedure: 15:59 Pre-op diagnosis: left arm abscess Post-op diagnosis: same Procedure & Clinicians Procedure: Incision and drainage of left arm abscess Same procedure as scheduled: Yes Indications: Left arm abscess Surgeon: Beata Oconnor Click Yes if Unassisted: Yes Anesthesia Type: General Operative Notes Findings: 120 mL of pus and blood drained out of forearm Specimen(s): other (wound culture) Estimated Blood Loss (mL): 15 Procedure in detail: Wound packed with iodoform gauze for hemostasis The patient was brought to the operating room, placed supine on the operating table, and sequential compression devices were placed on both legs and turned on. Appropriate perioperative antibiotics were given. General anesthesia was induced by the anesthesiologist and the patient was intubated with an LMA. The left arm was then prepped and draped in sterile fashion, and a surgical time-out was conducted. At this point local anesthetic was injected using 0.25% Marcaine with epi, at the site of the planned incision. A 5mm incision was made over the abscess site and copious purulent fluid poured out. Fluid was sent for culture. The incision was then opened for 3cm across the surface of the abscess cavity. The wound was irrigated and dried. There was a moderate amount of bloody ooze from the acosta of the abscess cavity. Local anesthetic was infiltrated into the site using a total of 30mL of 0.25% Marcaine with epi and a total of 20mL of Exparel. The wound was then packed with 1/2 inch iodoform gauze and covered with 4x4's. The gauze was secured with kerlix wrap. The patient was awakened from anesthesia and extubated. He was transferred onto his [facility]. The patient was then transferred to the postanesthesia care unit in stable condition. He tolerated the procedure well. Needle sponge and instrument counts were correct x2 at the end of the case. Complications: none Post-operative Condition: stable Disposition: PACU
[2020-09-19] MEDS: OXYCODONE IR 5 MG TABLET PO ×2 (19:14→23:43)
[2020-09-20] VITALS: BP 104/46; PULSE 99; RESP 18; TEMP 37.4; O2SAT 97
[2020-09-20] MEDS: PIPERACILLIN-TAZO 4.5 GM/100 ML FROZ.PIGGY IV ×4 (01:05→18:57)
--- NOTE | 2020-09-20 02:57 | PC.NURSE ---
pt wound dressing is saturated with serosanguineous drainage. This video games storywriter changed dressing as per Dr. Oconnor order to change the gauze and Kerlix roll as needed. Pt tolerated dressing change well.
[2020-09-20] MEDS: VANCOMYCIN 1,250 MG/250 ML PIGGYBACK 250 MG IV (03:21)
[2020-09-20] MEDS: SODIUM CHLORIDE 0.9% 1,000 ML 100 ML IV (03:21)
[2020-09-20] MEDS: OXYCODONE IR 10 MG TABLET PO ×4 (03:21→15:54)
[2020-09-20 06:00] VITALS: BP 119/67; PULSE 94; RESP 16; TEMP 36.7; O2SAT 94
[2020-09-20] MEDS: NICOTINE 21 MG PATCH TOP ×2 (07:59→14:26)
[2020-09-20] MEDS: LORazepam 2 MG/ML INJ 1 MG IV (07:59)
[2020-09-20] MEDS: DOCUSATE 100 MG CAPSULE PO ×2 (08:00→20:59)
[2020-09-20 08:09] LABS: Add Manual Diff / Slide Review NO; Basophils Absolute Auto 100 /uL (0-100); Basophils Percent Auto 0.6 % (0-2); Eosinophils Absolute Auto 100 /uL (0-450); Eosinophils Percent Auto 0.5 % (2-4); Hematocrit 35.5 % (41-53); Hemoglobin 11.8 g/dL (13.5-17.5); Lymphocytes Absolute Auto 3500 /uL (1100-4500); Lymphocytes Percent Auto 15.2 % (25-40); Mean Corpuscular HGB Conc 33.3 % (30-36); Mean Corpuscular Volume 84.3 fL (80-100); Monocytes Absolute Auto 1700 /uL (0-900); Monocytes Percent Auto 7.5 % (3-14); Neutrophils Absolute Auto 17400 /uL (1500-7000); Neutrophils Percent Auto 76.2 % (50-75); Platelet Count 422 X10^3/uL (150-400); Red Blood Cell Count 4.21 X10^6/uL (4.5-5.9); Red Cell Distribution Width 14.8 % (11.6-14.8); White Blood Cell Count 22.8 X10^3/uL (4.5-11.0)
[2020-09-20 08:41] VITALS: BP 124/70; PULSE 91; RESP 16; TEMP 36.5; O2SAT 98
[2020-09-20 08:53] LABS: Procalcitonin 25.85 ng/mL (<0.5)
[2020-09-20 09:47] LABS: BUN Creatinine Ratio 16.4 (6-22); Blood Urea Nitrogen 10 mg/dL (9-20); Calcium 8.3 mg/dL (8.4-10.2); Carbon Dioxide 27 mmol/L (22-32); Chloride 103 mmol/L (98-107); Estimated Glomerular Filt Rate > 60.0 mL/min (>60); Glucose 113 mg/dL (70-100); HEMOLYSIS < 15 (0-50); Potassium 4.1 mmol/L (3.4-5.1); Sodium 135 mmol/L (137-145)
--- NOTE | 2020-09-20 10:01 | P.PN_ITS ---
Subjective Subjective Date Patient Seen: 09/20/20 Time Patient Seen: 10:01 Interval history: No acute events overnight. Pt feeling better, although still in significant pain. Exam Vital Signs (past 8 hours): - 09/20/20 06:00 09/20/20 08:41 Temperature 98.0 F 97.7 F Pulse Rate 94 H 91 H Respiratory Rate 16 16 Blood Pressure 119/67 124/70 Pulse Oximetry 94 98 Oxygen Delivery Method Room Air Oxygen Flow Rate 0 Narrative Exam Narrative: GENERAL: Alert, comfortable. CARDIOVASCULAR: Regular rate. No pedal edema. RESPIRATORY: Non-tachypneic, breathing comfortably on room air. GASTROINTESTINAL: Abdomen soft and non-distended Left upper extremity: Improved arm and hand edema, although not back to baseline by comparison to the other arm, dressing is intact, and was just mauricio nged by the nurse prior to my coming in. Dressing was not removed during this exam. Motor and sensation are intact in the right hand, forearm, and upper arm Objective Labs Result Diagrams: 09/20/20 07:50 09/20/20 07:50 Labs: Laboratory Results - last 24 hr 09/20/20 09/20/20 09/20/20 07:50 07:50 07:50 WBC 22.8 H RBC 4.21 L Hgb 11.8 L Hct 35.5 L MCV 84.3 MCH 28.0 MCHC 33.3 RDW 14.8 Plt Count 422 H Neut % (Auto) 76.2 H Lymph % (Auto) 15.2 L [place] % (Auto) 7.5 Eos % (Auto) 0.5 L Baso % (Auto) 0.6 Neut # (Auto) 56879 H Lymph # (Auto) 3500 [place] # (Auto) 1700 H Eos # (Auto) 100 Baso # (Auto) 100 Sodium 135 L Potassium 4.1 Chloride 103 Carbon Dioxide 27 BUN 10 Creatinine 0.61 L Estimated GFR > 60.0 BUN/Creatinine Ratio 16.4 Glucose 113 H Calcium 8.3 L Procalcitonin 25.85 H Assessment & Plan Assessment & Plan narrative: 24-year-old man postop day 1 from I and D of a very large abscess in the left AC fossa. His white count has come down slightly, and the swelling has significantly improved. We are waiting on culture results. We will plan on a packing change this afternoon. Depending on how the wound looks he may need to go back to the OR tomorrow. Recommendations: Continue IV antibiotics, until cultures are resulted, and then appropriate antibiotic change depending on those results Management of pain and withdrawals per hospitalist Will make recommendations for home health depending on dressing change this afternoon Depending on how the wound looks he may need to go back to the OR tomorrow COVID-19 COVID-19 status: Negative Result date/Date tested (Pos, Neg/Pending): 09/18/20 Time Spent With Patient Time with patient: 15-24 minutes Quality VTE Deep Vein Thrombosis/Pulmonary Embolism Present on Admission: No
--- NOTE | 2020-09-20 11:55 | CM.SWNOTE ---
PHYSICIAN ASSISTANT SURGERY Note Patient now POD#1 from I+D of left arm abscess. Receiving IV abx, DC date unknown at this time. Met w/patient and mom Aliza at bedside, introduced self and role. Patient requests his mom stay in the room for this PHYSICIAN ASSISTANT SURGERY's assessment. According to our conversation: H/O Use: Patient dates first drug use back to 6th/7th grade, when he started to smoke meth and occasional heroin. Patient says he used sporadically at that time, once a month or so, and by age 17 he was using more frequently at higher doses. Patient states he has been injecting heroin for approx. 3 months. Patient states he uses meth infrequently at this time, uses IV Heroin daily. Patient has significant h/o abusing prescription narcotics and off again/on again heavy ETOH use. Patient has had many periods of sobriety. The longest being approx. one year, when he lived w/his sister in [place]. Other periods range from approx. one month- 6 months. H/O Treatment: Patient has had 3 inpatient stays at [facility] in [place], paid for by his parents. Patient was referred to an intensive outpatient treatment program and attended for two days. Patient has seen counselors during his treatment stays but has never had a counselor on the outpatient basis. H/O MH: Patient had been diagnosed w/depression and anxiety as a teenager, has spent most of his life unmedicated for these; admits to self medicating w/illicit drugs. Patient denies current or h/o homicidal or suicidal thoughts. Mom Aliza states Bipolar Disorder runs in my family, mom's siblings both have been diagnosed w/Bipolar Disorder and are both currently using illicit drugs. Patient's Dad Michael is a recovered addict, struggled w/ IVDU and patient feels Dad also used IV drugs to self medicate for anxiety/depression throughout his life. Support: Patient names the following people as his supports: Mom Aliza, Dad Michael (both in [place]) and sister Angelique ([place]). Other contacts are also illicit drug users. Psychosocial: Patient is currently unemployed. Patient has been moving around, spent one year living w/his sister Angelique, until he began to use again and sister kicked me out. Patient then moved in w/his Grandma and Grandpa in [place], did not have any period of sobriety according to patient and mom. Patient moved back to [place] recently, w/in the last 6 months, has been staying w/Dad Michael and then w/Mom Aliza (parents are ). Patient has been kicked out of these homes d/t continued use and deceit re: use. Both Mom and Dad have offered their homes if patient can remain sober and is seeking/in treatment. Mom Aliza confirms that today. Intervention and Plan: Patient admits to this PHYSICIAN ASSISTANT SURGERY he doesn't want to and wants to be sober again. Patient does not like living his current life, addicted to illicit drugs, and living in his car. Patient seems to understand the gravity of his current situation and addiction; this PHYSICIAN ASSISTANT SURGERY witnesses multiple attempts, by patient, to manipulate his mother...and manipulation would not be uncharacertisitc of someone that has been addicted to hard and illicit drugs for so long. This PHYSICIAN ASSISTANT SURGERY supported Mom (and Dad Michael yesterday) to continue to reinforce their stance; that patient is not welcome in their home until patient is sober and seeking assistance to remain sober. Patient will not be served by parents who are enabling. Patient states he understands this logic. Patient is eager to begin inpatient treatment. Parents are willing to have patient stay w/them as patient awaits a bed at an inpatient RUPERTO treatment facility that will accept patient's Ortiz ARON. Discussed the process, patient aware and agreeable to begin. Placed call to [facility] in [place], spoke to Olga. Discussed this referral, Olga is planning to rearrange her schedule tomorrow to come to speak w/patient at 0900 to complete the Drug and Alcohol assessment (required to secure bed at an inpatient RUPERTO unit). Updated patient. Following closely. AGATHA Tena updated w/summary of above. SRINIVASA Anderson
[2020-09-20 12:02] LABS: Vancomycin Trough 7.7 ug/mL (10-20)
[2020-09-20 12:10] VITALS: BP 115/67; PULSE 104; RESP 16; TEMP 36.9; O2SAT 98
--- NOTE | 2020-09-20 12:42 | P.PN_ITS ---
Subjective Subjective Date Patient Seen: 09/20/20 Interval history: Gus Huizar is 24-year-old male with a past medical history significant for IV drug and polysubstance abuse, atrial fibrillation and previous cerebellar aneurysm who presented to the ED with left forearm pain, abscess and surrounding cellulitis secondary to intravenous drug use. The patient is resting in bed comfortably. He reports his arm pain is much better than it was the day before. He reports his pain is now a throbbing ache and controlled with pain medications. He denies symptoms of withdrawal. He has no other complaints and denies headache, chest pain, shortness of breath, abdominal pain, nausea, vomiting, fever, chills, dysuria, diarrhea or constipation. He is voiding and eliminating without difficulty. He is up ambulating without assistance. Exam Vital Signs (past 8 hours): - 09/20/20 06:00 09/20/20 08:41 09/20/20 12:10 Temperature 98.0 F 97.7 F 98.4 F Pulse Rate 94 H 91 H 104 H Respiratory Rate 16 16 16 Blood Pressure 119/67 124/70 115/67 Pulse Oximetry 94 98 98 Oxygen Delivery Method Room Air Oxygen Flow Rate 0 Narrative Exam Narrative: General: Young male sitting in bed and in no acute distress, appears chronically ill, appropriately interactive. HEENT: Normocephalic, atraumatic. External ears without defect. Pupils equal, round, and reactive to light. Anicteric sclerae, moist conjunctivae, and no lid lag. Oropharynx free of erythema and cobble stoning with moist mucosa. Neck: Supple with full range of motion. No lymphadenopathy or thyromegaly. Cardiovascular: Regular rhythm, mildly tachycardic, without murmurs, rubs, or gallops appreciated. Pulmonary: Clear to auscultation bilaterally without crackles, wheezes, or rhonchi. Normal respiratory effort with no use of accessory muscles. Abdomen: Soft, bowel sounds present, nontender, nondistended. No hepatosplenomegaly or masses appreciated. Extremities: Left arm with significant edema and mild erythema of forearm with packed open wound. No clubbing, cyanosis, or edema in other extremities. Skin: Normal temperature, turgor, and texture; no rash, ulcers, or subcutaneous nodules appreciated. Neurological: Cranial nerves grossly intact. Psychiatric: Normal mood and affect. Alert and oriented to person, place, and time. Objective Labs Result Diagrams: 09/20/20 07:50 09/20/20 07:50 Labs: Laboratory Results - last 24 hr 09/20/20 09/20/20 09/20/20 07:50 07:50 07:50 WBC 22.8 H RBC 4.21 L Hgb 11.8 L Hct 35.5 L MCV 84.3 MCH 28.0 MCHC 33.3 RDW 14.8 Plt Count 422 H Neut % (Auto) 76.2 H Lymph % (Auto) 15.2 L [place] % (Auto) 7.5 Eos % (Auto) 0.5 L Baso % (Auto) 0.6 Neut # (Auto) 50665 H Lymph # (Auto) 3500 [place] # (Auto) 1700 H Eos # (Auto) 100 Baso # (Auto) 100 Sodium 135 L Potassium 4.1 Chloride 103 Carbon Dioxide 27 BUN 10 Creatinine 0.61 L Estimated GFR > 60.0 BUN/Creatinine Ratio 16.4 Glucose 113 H Calcium 8.3 L Procalcitonin 25.85 H Vancomycin Trough 09/20/20 11:35 WBC RBC Hgb Hct MCV MCH MCHC RDW Plt Count Neut % (Auto) Lymph % (Auto) [place] % (Auto) Eos % (Auto) Baso % (Auto) Neut # (Auto) Lymph # (Auto) [place] # (Auto) Eos # (Auto) Baso # (Auto) Sodium Potassium Chloride Carbon Dioxide BUN Creatinine Estimated GFR BUN/Creatinine Ratio Glucose Calcium Procalcitonin Vancomycin Trough 7.7 L Assessment & Plan Assessment & Plan narrative: Gus Huizar is 24-year-old male with a past medical history significant for IV drug and polysubstance abuse, atrial fibrillation and previous cerebellar aneurysm who presented to the ED with left forearm pain, abscess and surrounding cellulitis secondary to intravenous drug use. 1. Acute left antecubital fossa abscess with surrounding cellulitis, secondary to IV drug use, present on admission. Active. -Patient reports swelling of left forearm x2 weeks with formation of abscess over the last several days prior to admission. -CT left arm with contrast demonstrated small abscess in the antecubital fossa of the left arm measuring 4.9 x 2.2 x 1.2 cm, diffuse subcutaneous edema of forearm, enlarged left axillary lymph node suspect reactive etiology. -Initial WBC 26.0. WBC trending down now 22.8. Initial procalcitonin 76.33 and trending down now 25.85. Continue to monitor WBC and procalcitonin daily. -Received vancomycin in ED. Continue vancomycin with dosing per pharmacist to treat MRSA and Zosyn 4.5 g every 6 hours to treat Pseudomonas and anaerobes given IVDU. -Consulted general surgery, Dr. Oconnor, who performed I&D on 09/19/20. Continue postsurgical treatment per Dr. Antunez and we appreciate her time and recommendations. 2. IV drug and polysubstance abuse, chronic, present on admission. Stable. -Patient endorses only injecting heroin but has also smoked methamphetamine. Patient states his desire to quit and reports being sober for approximately 5 days prior to admission and experiencing withdrawal symptoms. -Lengthy discussion and teaching on drug abuse, complications and risks performed by admitting provider. SALES ASSOCIATE FISHING consulted and we appreciate her time and recommendations. SALES ASSOCIATE [employer] arranged for possible outpatient polysubstance treatment and initial assessment is tomorrow morning at 0900 in hospital. 3. Tobacco dependence, chronic, present on admission. Stable. -Patient reports smoking 1.5-2 packs per day though reports he is trying to quit cigarettes as well. -Previous provider counseled patient extensively on smoking cessation. -Continue nicotine patch daily to avoid nicotine withdrawal. 4. History of paroxysmal atrial fibrillation. -Patient currently in sinus rhythm. -Patient reports his last episode of atrial fibrillation occurred approximately 6 months ago in which he was hospitalized but unable to obtain records. He reports he is able to convert to sinus rhythm with coughing. -Continue to monitor closely on telemetry. Code status: Full code, the patient designates his mother Aliza Huizar to be his surrogate decision maker VTE prophylaxis: SCDs Disposition: Patient will likely discharge in the next 1-2 days depending on improvement in left arm abscess with IV antibiotics. Quality VTE Deep Vein Thrombosis/Pulmonary Embolism Present on Admission: No
[2020-09-20] MEDS: VANCOMYCIN TROUGH 1 REQUEST MISC (13:18)
--- NOTE | 2020-09-20 14:11 | PC.NURSE ---
Addendum entered by Karen Cody R.N. 09/20/20 14:57: L.forearm packing taken out of patients open I&D abcess, medicated with 1mg of iv dilaudid prior and patient tolerated procedure well. will be over soon to assess patients wound. Addendum entered by Karen Cody R.N. 09/20/20 14:17: Will reapply a new nicotine patch to patient after his shower is done. Vancomycin is now 1500mg as Trough was low at 7.7, this will be started when patient is back to bed. Original Note: Assess- Patient in the shower now after iv antibiotic infused. Bulky dressing to l.arm taken down. He has packing to I&D that will soften up with a warm shower, and then packing will be removed. We will medicate him with 1mg of iv dilaudid prior. Dr. Oconnor called and states that this RN can start taking packing down, or we can wait until she gets up to see patient around 1530 if he does not tolerate this well. His Nicotine patch fell on the floor, he asked what would happen if he smoked one cigarette in the bathroom, this RN replied that would not be a good idea, and that this [facility] is a non smoking campus. He was compliant. SUPERVISOR STOCK RANCH in room, assisting patient when needed with shower. IV covered with glove to keep from getting wet.
[2020-09-20] MEDS: HYDROMORPHONE 1 MG INJ IV (14:27)
[2020-09-20] MEDS: VANCOMYCIN 1,500 MG/300 ML PIGGYBACK 200 MG IV ×2 (14:27→19:56)
[2020-09-20 14:48] LABS: Procalcitonin 76.33 ng/mL (<0.5)
--- NOTE | 2020-09-20 15:29 | DIET.PN ---
Dietary Progress Note Assessment: 24y M smoker with history of IV drug abuse presents with severe pain and swelling of his left forearm requiring I&D referred to nutrition for reported significant weight loss. 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 Pt started using heroin heavily 3mo ago and became homeless, living in car leading to significant weight loss captured during his last injection site infection visit to ED (07/30/20) where weight was recorded as 86.1kg and today, 65.7kg (-24% unintentional in 8w, severe). Pt reports it is usual for him when heavily using to eat once per week, not because he feels hungry, but because he remembers he hasn't eaten in a week. Pt admits to stealing protein bars secondary to food insecurity. Pt reports drinking Nalini Ice Tea Grape Drink as main source of calories, each 23oz can providing 280kcal, 70g CHO, 58g added sugar. Likely micronutrient deficiencies as pt is daily cigarette smoker and does not like fruits or vegetables besides apples, oranges, strawberries, and bananas, and does not eat beans. HT: 180.3cm WT: 65.7kg UBW: 68kg BMI: 20.2 Labs: WBC 22.8 H, Cr 0.61 L MNA: 7 malnourished Jayden: 23 Nutrition Diagnosis: Severe Acute PCM r/t limited access to food and suppressed appetite secondary to IV drug use aeb 24.5% unintentional weight loss in 2 mo (severe), pt reports relapsing into daily heroin use for past 3mo, eating one meal per week for past 3mo, pt homeless living in car, pt reports heroin withdrawl over past 2w, pt admitted for I&D of infected, unhealing injection site wound. Interventions: 1. Educated pt on sobriety nutrition following a schedule ensuring adequate intake of protein to assist healing, complex carbohydrates, fruits and vegetables. Encouraged pt to cut back on sugar sweetened beverages to aid healing of wound. Instructed pt on menu ordering while in hospital. 2. To address PCM and healing, recc ONS strawberry banana yogurt smoothie bid. Diet Order: General EER: 1,950kcal (30kcal/kg), 85g PRO (1.3g/kg) Monitoring/Evaluations: ONS tolerance, POs, weights
[2020-09-20 16:24] VITALS: BP 97/59; PULSE 88; RESP 18; TEMP 36.9; O2SAT 97
[2020-09-20] MEDS: HEPARIN 5,000 UNIT/ML VIAL 5000 UNIT SUBCUT (18:17)
[2020-09-20 20:34] VITALS: BP 134/74; PULSE 96; RESP 20; TEMP 36.9
[2020-09-20] MEDS: OXYCODONE IR 5 MG TABLET PO (20:59)
[2020-09-20] MEDS: SODIUM CHLORIDE 0.9% 1,000 ML 125 ML IV (21:00)
[2020-09-21] VITALS (20 sets, daily range): BP systolic 102–136; BP diastolic 57–84; PULSE 68–101; RESP 8–18; TEMP 36.3–37.2; O2SAT 95–100
[2020-09-21] MEDS: PIPERACILLIN-TAZO 4.5 GM/100 ML FROZ.PIGGY IV ×2 (00:06→06:05)
[2020-09-21] MEDS: LORazepam 2 MG/ML INJ 1 MG IV ×2 (00:06→06:05)
[2020-09-21] MEDS: VANCOMYCIN 1,500 MG/300 ML PIGGYBACK 200 MG IV ×2 (01:11→09:14)
[2020-09-21 07:58] LABS: Add Manual Diff / Slide Review NO; Basophils Absolute Auto 100 /uL (0-100); Basophils Percent Auto 0.7 % (0-2); Eosinophils Absolute Auto 300 /uL (0-450); Eosinophils Percent Auto 1.6 % (2-4); Hematocrit 35.5 % (41-53); Hemoglobin 11.8 g/dL (13.5-17.5); Lymphocytes Absolute Auto 2700 /uL (1100-4500); Lymphocytes Percent Auto 15.6 % (25-40); Mean Corpuscular HGB Conc 33.2 % (30-36); Mean Corpuscular Hemoglobin 27.9 PG (26-34); Mean Corpuscular Volume 84.1 fL (80-100); Monocytes Absolute Auto 700 /uL (0-900); Neutrophils Absolute Auto 13700 /uL (1500-7000); Neutrophils Percent Auto 78.1 % (50-75); Platelet Count 513 X10^3/uL (150-400); Red Blood Cell Count 4.22 X10^6/uL (4.5-5.9); Red Cell Distribution Width 14.8 % (11.6-14.8); White Blood Cell Count 17.5 X10^3/uL (4.5-11.0)
[2020-09-21 08:27] LABS: Procalcitonin 16.58 ng/mL (<0.5)
[2020-09-21 08:43] LABS: Vancomycin Trough 13.7 ug/mL (10-20)
[2020-09-21 08:45] LABS: Alanine Aminotransferase 54 IU/L (<50); Albumin 3.1 g/dL (3.5-5.0); Alkaline Phosphatase 57 U/L (38-126); Aspartate Aminotransferase 44 IU/L (17-59); Bilirubin Total 0.4 mg/dL (0.2-1.3); Blood Urea Nitrogen 11 mg/dL (9-20); Calcium 8.8 mg/dL (8.4-10.2); Carbon Dioxide 26 mmol/L (22-32); Chloride 106 mmol/L (98-107); Estimated Glomerular Filt Rate > 60.0 mL/min (>60); Glucose 116 mg/dL (70-100); HEMOLYSIS < 15 (0-50); Magnesium 2.3 mg/dL (1.6-2.3); Potassium 4.3 mmol/L (3.4-5.1); Sodium 138 mmol/L (137-145); Total Protein 6.1 g/dL (6.3-8.2)
[2020-09-21] MEDS: OXYCODONE IR 10 MG TABLET PO ×3 (09:14→23:49)
[2020-09-21] MEDS: VANCOMYCIN TROUGH 1 REQUEST MISC (09:15)
[2020-09-21] MEDS: NICOTINE 21 MG PATCH TOP (09:15)
[2020-09-21] MEDS: SODIUM CHLORIDE 0.9% 1,000 ML 125 ML IV ×2 (09:16→19:22)
--- NOTE | 2020-09-21 11:15 | P.PN_ITS ---
Subjective Subjective Date Patient Seen: 09/21/20 Interval history: Gus Huizar is 24-year-old male with a past medical history significant for IV drug and polysubstance abuse, atrial fibrillation and previous cerebellar aneurysm who presented to the ED with left forearm pain, abscess and surrounding cellulitis secondary to intravenous drug use. The patient is resting in bed comfortably. He reports his arm pain is slightly worse than yesterday. He continues to report a throbbing ache that is controlled with pain medications. He denies symptoms of withdrawal. The patient reported interest in Suboxone treatment once discharged and Suboxone was discussed in detail. He is reports he is hungry. Plan for patient to go back to OR today for washout and patient has been NPO since midnight. He has no other complaints and denies headache, chest pain, shortness of breath, abdominal pain, nausea, vomiting, fever, chills, dysuria, diarrhea or constipation. He is voiding and eliminating without difficulty. He is up ambulating without assistance. Exam Vital Signs (past 8 hours): - 09/21/20 04:00 09/21/20 09:03 Temperature 98.0 F 98.8 F Pulse Rate 77 83 Respiratory Rate 18 14 Blood Pressure 136/70 119/69 Pulse Oximetry 98 Oxygen Delivery Method Room Air Oxygen Flow Rate 0 Narrative Exam Narrative: General: Young male sitting in bed and in no acute distress, appears chronically ill, appropriately interactive. HEENT: Normocephalic, atraumatic. External ears without defect. Pupils equal, round, and reactive to light. Anicteric sclerae, moist conjunctivae, and no lid lag. Oropharynx free of erythema and cobble stoning with moist mucosa. Neck: Supple with full range of motion. No lymphadenopathy or thyromegaly. Cardiovascular: Regular rhythm and rate without murmurs, rubs, or gallops appreciated. Pulmonary: Clear to auscultation bilaterally without crackles, wheezes, or rho nchi. Normal respiratory effort with no use of accessory muscles. Abdomen: Soft, bowel sounds present, nontender, nondistended. No hepatosplenomegaly or masses appreciated. Extremities: Left arm with improving [id number] edema and mild erythema with dressing in place C/D/I. No clubbing, cyanosis, or edema in other extremities. Skin: Normal temperature, turgor, and texture; no rash, ulcers, or subcutaneous nodules appreciated. Neurological: Cranial nerves grossly intact. Psychiatric: Normal mood and affect. Alert and oriented to person, place, and time. Objective Labs Result Diagrams: 09/21/20 07:45 09/21/20 07:45 Labs: Laboratory Results - last 24 hr 09/18/20 09/20/20 09/21/20 19:45 11:35 07:45 WBC 17.5 H RBC 4.22 L Hgb 11.8 L Hct 35.5 L MCV 84.1 MCH 27.9 MCHC 33.2 RDW 14.8 Plt Count 513 H Neut % (Auto) 78.1 H Lymph % (Auto) 15.6 L [place] % (Auto) 4.0 Eos % (Auto) 1.6 L Baso % (Auto) 0.7 Neut # (Auto) 08214 H Lymph # (Auto) 2700 [place] # (Auto) 700 Eos # (Auto) 300 Baso # (Auto) 100 Sodium Potassium Chloride Carbon Dioxide BUN Creatinine Estimated GFR BUN/Creatinine Ratio Glucose Calcium Magnesium Total Bilirubin AST ALT Alkaline Phosphatase Total Protein Albumin Globulin Albumin/Globulin Ratio Procalcitonin 76.33 H Vancomycin Trough 7.7 L 09/21/20 09/21/20 09/21/20 07:45 07:45 07:45 WBC RBC Hgb Hct MCV MCH MCHC RDW Plt Count Neut % (Auto) Lymph % (Auto) [place] % (Auto) Eos % (Auto) Baso % (Auto) Neut # (Auto) Lymph # (Auto) [place] # (Auto) Eos # (Auto) Baso # (Auto) Sodium 138 Potassium 4.3 Chloride 106 Carbon Dioxide 26 BUN 11 Creatinine 0.55 L Estimated GFR > 60.0 BUN/Creatinine Ratio 20.0 Glucose 116 H Calcium 8.8 Magnesium 2.3 Total Bilirubin 0.4 AST 44 ALT 54 H Alkaline Phosphatase 57 Total Protein 6.1 L Albumin 3.1 L Globulin 3.0 Albumin/Globulin Ratio 1.0 Procalcitonin 16.58 H Vancomycin Trough 13.7 Assessment & Plan Assessment & Plan narrative: Gus Huizar is 24-year-old male with a past medical history significant for IV drug and polysubstance abuse, atrial fibrillation and previous cerebellar aneurysm who presented to the ED with left forearm pain, abscess and surrounding cellulitis secondary to intravenous drug use. 1. Acute left antecubital fossa abscess with surrounding cellulitis, secondary to IV drug use, present on admission. Active. -Patient reports swelling of left forearm x2 weeks with formation of abscess over the last several days prior to admission. -CT left arm with contrast demonstrated small abscess in the antecubital fossa of the left arm measuring 4.9 x 2.2 x 1.2 cm, diffuse subcutaneous edema of forearm, enlarged left axillary lymph node suspect reactive etiology. -Initial WBC 26.0 and trending down now 17.5. Initial procalcitonin 76.33 and trending down now 16.58. Continue to monitor WBC and procalcitonin daily. -Received vancomycin in ED. Discontinued vancomycin per pharmacist as patient has no evidence of MRSA. Continue Zosyn 3.375 g every 6 hours to treat Gram- positive, Gram-negative, Pseudomonas and anaerobes given IVDU. -Consulted general surgery, Dr. Ocnonor, who performed I&D on 09/19/20. Plan for patient to go back to OR today for washout. Patient has been NPO since midnight. 2. IV drug and polysubstance abuse, chronic, present on admission. Stable. -Patient endorses only injecting heroin but has also smoked methamphetamine. Patient states his desire to quit and reports being sober for approximately 5 days prior to admission and experiencing withdrawal symptoms. -Lengthy discussion and teaching on drug abuse, complications and risks performed by admitting provider. PAGE DESIGNER consulted and we appreciate her time and recommendations. PAGE DESIGNER arranged for possible outpatient polysubstance treatment and initial assessment is tomorrow morning at 0900 in hospital. Patient is interested in Suboxone and plans to go to the [facility] once discharged. 3. Tobacco dependence, chronic, present on admission. Stable. -Patient reports smoking 1.5-2 packs per day though reports he is trying to quit cigarettes as well. -Previous provider counseled patient extensively on smoking cessation. -Continue nicotine patch daily to avoid nicotine withdrawal. 4. History of paroxysmal atrial fibrillation. -Patient currently in sinus rhythm. -Patient reports his last episode of atrial fibrillation occurred approximately 6 months ago in which he was hospitalized but unable to obtain records. He reports he is able to convert to sinus rhythm with coughing. -Continue to monitor closely on telemetry. Patient has been sinus rhythm/sinus tachycardia throughout hospitalization thus far. Code status: Full code, the patient designates his mother Aliza Huizar to be his surrogate decision maker VTE prophylaxis: SCDs, SQ Heparin Disposition: Patient will likely discharge in the next 1-2 days depending on improvement in left arm abscess with IV antibiotics. Quality VTE Deep Vein Thrombosis/Pulmonary Embolism Present on Admission: No
[2020-09-21] MEDS: PIPERACILLIN-TAZO 3.375 GM/50 ML FROZ.PIGGY IV ×3 (11:59→23:50)
[2020-09-21] MEDS: HYDROMORPHONE 1 MG INJ IV ×2 (11:59→19:52)
--- NOTE | 2020-09-21 12:44 | CM.SWNOTE ---
PIPELINE WELDER Note TC from Olga at [facility] P# [phone], she has to reschedule patient's bedside assessment for tomorrow, 09.22.20 for 1100. Updated patient and Dr Molina; patient is scheduled for the OR today for additional washout of left UE JW
--- NOTE | 2020-09-21 14:24 | PC.NURSE ---
PATIENT OFF OF UNIT FOR I&D
[2020-09-21] MEDS: LACTATED RINGERS 1,000 ML 42 ML IV (14:45)
--- NOTE | 2020-09-21 14:50 | P.PN_ITS ---
Subjective Subjective Date Patient Seen: 09/21/20 Time Patient Seen: 14:50 Interval history: No acute events overnight. Pain is well controlled. Patient is working on straightening his arm. Exam Vital Signs (past 8 hours): - 09/21/20 09:03 09/21/20 11:04 Temperature 98.8 F 98.2 F Pulse Rate 83 83 Respiratory Rate 14 14 Blood Pressure 119/69 110/59 L Pulse Oximetry 98 97 Oxygen Delivery Method Room Air Oxygen Flow Rate 0 Narrative Exam Narrative: GENERAL: Alert, comfortable. CARDIOVASCULAR: Regular rate. No pedal edema. RESPIRATORY: Non-tachypneic, breathing comfortably on room air. GASTROINTESTINAL: Abdomen soft and non-distended Left upper extremity: Improved arm and hand edema, although not back to baseline by comparison to the other arm, dressing is intact. Dressing was not removed during this exam. Motor and sensation are intact in the right hand, forearm, and upper arm Objective Labs Result Diagrams: 09/21/20 07:45 09/21/20 07:45 Labs: Laboratory Results - last 24 hr 09/21/20 09/21/20 09/21/20 07:45 07:45 07:45 WBC 17.5 H RBC 4.22 L Hgb 11.8 L Hct 35.5 L MCV 84.1 MCH 27.9 MCHC 33.2 RDW 14.8 Plt Count 513 H Neut % (Auto) 78.1 H Lymph % (Auto) 15.6 L [place] % (Auto) 4.0 Eos % (Auto) 1.6 L Baso % (Auto) 0.7 Neut # (Auto) 61195 H Lymph # (Auto) 2700 [place] # (Auto) 700 Eos # (Auto) 300 Baso # (Auto) 100 Sodium Potassium Chloride Carbon Dioxide BUN Creatinine Estimated GFR BUN/Creatinine Ratio Glucose Calcium Magnesium Total Bilirubin AST ALT Alkaline Phosphatase Total Protein Albumin Globulin Albumin/Globulin Ratio Procalcitonin 16.58 H Vancomycin Trough 13.7 09/21/20 07:45 WBC RBC Hgb Hct MCV MCH MCHC RDW Plt Count Neut % (Auto) Lymph % (Auto) [place] % (Auto) Eos % (Auto) Baso % (Auto) Neut # (Auto) Lymph # (Auto) [place] # (Auto) Eos # (Auto) Baso # (Auto) Sodium 138 Potassium 4.3 Chloride 106 Carbon Dioxide 26 BUN 11 Creatinine 0.55 L Estimated GFR > 60.0 BUN/Creatinine Ratio 20.0 Glucose 116 H Calcium 8.8 Magnesium 2.3 Total Bilirubin 0.4 AST 44 ALT 54 H Alkaline Phosphatase 57 Total Protein 6.1 L Albumin 3.1 L Globulin 3.0 Albumin/Globulin Ratio 1.0 Procalcitonin Vancomycin Trough Assessment & Plan Assessment & Plan narrative: 24-year-old man postop day 2 from I and D of a very large abscess in the left AC fossa. He has some necrotic tissue around wound, and he cannot tolerate bedside packing. Will return to the operating room today to debride the wound, and attempt at least partial closure over a drain. Risks and benefits of the procedure were discussed with the patient including risk of bleeding, infection, damage to nearby structures, need for additional procedures, abscess recurrence, scarring, poor or decreased function. Patient desires to proceed with the scheduled operation Recommendations: Continue IV antibiotics, until cultures are resulted, and then appropriate antibiotic change depending on those results Management of pain and withdrawals per hospitalist Will make recommendations for home health depending on results of wound revision today in the OR COVID-19 COVID-19 status: Negative Result date/Date tested (Pos, Neg/Pending): 09/18/20 Time Spent With Patient Time with patient: 15-24 minutes Quality VTE Deep Vein Thrombosis/Pulmonary Embolism Present on Admission: No
[2020-09-21] MEDS: BUPIVACAINE 0.25% W/ EPI (PF) 10 ML VIAL 20 ML INJ (15:39)
--- NOTE | 2020-09-21 15:58 | P.OP_ITS ---
Operative Date/Time/Diagnoses Date of procedure: 09/21/20 Time of procedure: 15:59 Pre-op diagnosis: left arm wound Post-op diagnosis: same Procedure & Clinicians Procedure: Left arm wound debridement, drain placement and closure; sharp cautery debridement of 8cm x 4cm wound, 1cm deep Same procedure as scheduled: Yes Indications: 24 yo man with large left arm ac fossa abscess drained two days ago, with open wound and skin and fat in the wound. Taking him to the OR to debride the wound and attempt closure over a drain. Surgeon: Beata Oconnor Click Yes if Unassisted: Yes Anesthesia Type: General Operative Notes Findings: Left arm wound 8cm x 4cm and 1cm deep with bleeding tissue Closure Type: primary Specimen(s): none sent Applied: drain(s) (10 Fr natalie drain) Estimated Blood Loss (mL): 2 Blood products transfused: none Procedure in detail: The patient was brought to the operating room, placed supine on the operating table, and sequential compression devices were placed on both legs and turned on. Appropriate perioperative antibiotics were given. General anesthesia was induced by the anesthesiologist and the patient was intubated with an LMA. The left arm was then prepped and draped in sterile fashion, and a surgical time-out was conducted. At this point local anesthetic was injected using 0.25% Marcaine with epi, at the site of the open wound. The wound was 8cm x 4cm and 1cm deep. It was irrigated and debrided with rough gauze and cautery to remove the skin and fat and the slough. A 10 Fr natalie drain was placed in the wound, exiting the skin 4cm distal to the wound toward the hand. The skin was then closed with mattress sutures using 2-0 Nylon interrupted sutures. Local anesthetic was infiltrated into the site using a total of 30mL of 0.25% Marcaine with epi. The wound was then covered with xeroform gauze and covered with 4x4's. The gauze was secured with kerlix wrap. The patient was awakened from anesthesia and extubated. He was transferred onto his [facility]. The [facility] ient was then transferred to the postanesthesia care unit in stable condition. He tolerated the procedure well. Needle sponge and instrument counts were correct x2 at the end of the case. Complications: none Post-operative Condition: stable Disposition: PACU
[2020-09-21] MEDS: HYDROMORPHONE 2 MG INJ IV ×5 (16:02→16:50)
--- NOTE | 2020-09-21 16:07 | SUR.PHASEI ---
c/o pain, medicated. Mostly calm bu intermittently complaining; c/o mild nausea, declines medication. HOB elevated, awake, oriented, states that he remembers being in the PACU from him previous surgery.
--- NOTE | 2020-09-21 16:15 | SUR.PHASEI ---
Dr Oconnor spoke with the patient. Nausea resolved.
--- NOTE | 2020-09-21 16:28 | SUR.PHASEI ---
1627 pt resting quietly, eating crackers and drinking juice. Discussed pain medication options, declined PO med stating that it doesn't do anything to relieve the pain. Discussed med with Dr. Farooq and he spoke with the patient. increased the number of doses
--- NOTE | 2020-09-21 16:39 | SUR.PHASEI ---
report off to Gerardo Schuster RN
--- NOTE | 2020-09-21 16:58 | SUR.PHASEI ---
Pt states I'm high, but it still hurts. Pt looks 'stoned' - states 'I am when discussing pain med. Plan: take him to his room 30 minutes from the last dose.
--- NOTE | 2020-09-21 17:10 | SUR.PHASEI ---
Report called to Genoveva Bland RN
--- NOTE | 2020-09-21 17:14 | SUR.PHASEI ---
Drain emptied of 5 ml red drainage without clots. VSS, Pt relaxed, moving in bed in a relaxed manner to elevate and move left arm. states It feels easier to move my hand around now.
--- NOTE | 2020-09-21 17:31 | SUR.PHASEI ---
1723 To room 202, bed down and locked, call light within reach, Abel RN setting up pt for dinner. VSS. Pt repeatedly expressed appreciation for care. He is not moaning, moves freely without grimacing. Stable.
[2020-09-21] MEDS: DOCUSATE 100 MG CAPSULE PO (19:28)
[2020-09-22] MEDS: HYDROMORPHONE 1 MG INJ IV ×6 (00:41→20:25)
[2020-09-22] MEDS: SODIUM CHLORIDE 0.9% 1,000 ML 100 ML IV ×2 (02:29→13:02)
[2020-09-22] MEDS: LORazepam 2 MG/ML INJ 1 MG IV ×4 (02:40→23:28)
[2020-09-22] MEDS: OXYCODONE IR 10 MG TABLET PO ×4 (04:00→20:20)
[2020-09-22] MEDS: PIPERACILLIN-TAZO 3.375 GM/50 ML FROZ.PIGGY IV ×3 (05:04→19:27)
[2020-09-22 05:54] VITALS: BP 106/62; PULSE 81; RESP 16; TEMP 36.2; O2SAT 98
[2020-09-22 06:10] LABS: Add Manual Diff / Slide Review NO; Basophils Absolute Auto 100 /uL (0-100); Basophils Percent Auto 0.5 % (0-2); Eosinophils Absolute Auto 400 /uL (0-450); Eosinophils Percent Auto 3.3 % (2-4); Hemoglobin 10.4 g/dL (13.5-17.5); Lymphocytes Absolute Auto 3900 /uL (1100-4500); Lymphocytes Percent Auto 35.6 % (25-40); Mean Corpuscular HGB Conc 33.5 % (30-36); Mean Corpuscular Hemoglobin 28.3 PG (26-34); Mean Corpuscular Volume 84.6 fL (80-100); Monocytes Absolute Auto 500 /uL (0-900); Monocytes Percent Auto 4.3 % (3-14); Neutrophils Absolute Auto 6200 /uL (1500-7000); Neutrophils Percent Auto 56.3 % (50-75); Platelet Count 512 X10^3/uL (150-400); Red Blood Cell Count 3.67 X10^6/uL (4.5-5.9); Red Cell Distribution Width 14.6 % (11.6-14.8)
[2020-09-22 06:26] LABS: Hemoglobin A1C% w Est Avg Glu 5.7 % (4.0-6.0)
[2020-09-22 06:41] LABS: Procalcitonin 8.15 ng/mL (<0.5)
[2020-09-22] MEDS: NICOTINE 21 MG PATCH TOP (08:53)
[2020-09-22 09:00] VITALS: BP 91/49; PULSE 73; RESP 15; TEMP 37.2; O2SAT 98
--- NOTE | 2020-09-22 09:22 | PT.IIE ---
Current Diagnoses Other psychoactive substance abuse, uncomplicated (09/18/20) Unspecified atrial fibrillation (09/18/20) Cutaneous abscess of left upper limb (09/18/20) Cellulitis of left upper limb (09/18/20) Contact with and (suspected) exposure to other bacterial communicable diseases (09/18/20) Surgery Performed Operation Date: 09/19/20 15:45 Actual Procedures p Arm I&D(Left) - Beata Oconnor MD Operation Date: 09/21/20 14:45 Actual Procedures p arm washout & debridement(Left) - Beata Oconnor MD Medical History (Last Updated 09/19/20 @ 11:44 by Beata Oconnor MD) Atrial fibrillation IV drug abuse MRSA exposure Physical Therapy Inpatient Evaluation/Re-Eval M1 PT/OT-IP Prior Functional Status Start: 09/22/20 11:28 Freq: NEEDED Status: Active Protocol: Document 09/22/20 09:22 AB (Rec: 09/22/20 11:44 AB [id number]) Medical Review Prior Functional Status Medical History Reviewed Yes Communication able to make needs known Mobility and Gait pt stated that he is independent with all mobilities and ambulation without AD Social History Household Members family Living Arrangements House Number of Floors (Floors) Two Floors Number of Stairs To Enter/Railing? no steps to enter 10 steps down to bedroom level with bilateral rails Home Environment High Toilet,Tub/Shower Home Equipment Grab Bars In Shower Employment Status Unemployed M2 PT-IP Current Condition Start: 09/22/20 11:28 Freq: NEEDED Status: Active Protocol: Document 09/22/20 09:22 AB (Rec: 09/22/20 11:44 AB [email or web address]) Physical Therapy Current Condition Current Condition Evaluation Date 09/22/20 Treatment Diagnosis LUE abscess s/p I&D; difficulty in walking Onset Date 09/18/20 M3 PT-IP Subjective Start: 09/22/20 11:28 Freq: NEEDED Status: Active Protocol: Document 09/22/20 09:22 AB (Rec: 09/22/20 11:44 AB [email or web address]) Subjective Physical Therapy Visit Type Type Initial Evaluation Visit Start Time 09:22 Visit Stop Time 09:58 Total Visit Minutes 18 Notes pt seen for split visits: 922 am to 928 am and 946 am to 958am Number of COMMUNICATIONS SPECIALIST Visits 0 Physical Therapy Visit Comments Patient Comments agreeable to do PT Therapy Pain Assessment Pain When Pain Assessed At Rest Pain Present Pain Present Pain Reported Location Left Arm Intensity 7 Scale Used Numeric (0 - 10) Pain Management Techniques Distraction,Modification of Treatment,Re-positioning, Timing of Activity with Medications M4 PT-IP Mobility and Gait Start: 09/22/20 11:28 Freq: NEEDED Status: Active Protocol: Document 09/22/20 09:22 AB (Rec: 09/22/20 11:44 [email or web address]) PT-Bed Mobility Assessment Rolling Level of Assist Independent Supine to Sit Supine to Sit Independent Sit to Supine Sit to Supine Independent Scooting Scooting to Edge of Bed Independent PT-Transfer Assessment Sit to and From Stand Sit to and from Stand Independent Equipment Transfer Assistive Device None Gait Assessment Gait Gait Assistance Required: Independent Distance (Feet) 300 Able to Maintain Weight Bearing Status Yes During Gait Assistive Devices Assistive Device None Stair Climbing Assessment Evaluation Level of Assist On Stairs Independent Devices Stair Climbing Assistive Devices None Technique/Endurance Stair Climbing Direction Ascend and Descend Stair Climbing Technique Step Over Step Number of Steps Climbed 3 Query Text: Stair Climbing Set # Repetitions (reps) 2 PT-Balance Assessment Sitting Balance and Reactions Static Sitting Balance Ability Normal Dynamic Sitting Balance Ability Normal Standing Balance and Reactions Static Standing Balance Ability Good Dynamic Standing Balance Ability Good M5 PT-IP Objective Assessments Start: 09/22/20 11:28 Freq: NEEDED Status: Active Protocol: Document 09/22/20 09:22 AB (Rec: 09/22/20 11:44 [email or web address]) Orientation Orientation/Cognition Level of Alertness Alert Orientation Name,Age,Birthday,Month,Date, Year,Day of Week,Place, Situation Language Function Ability No Deficits Noted Safety Awareness Decreased Safety Awareness Gross Range of Motion Upper Extremity ROM Assessment Left Impaired Impairments pt resting elbow position of ~ 70 deg. attempted AROM R elbow flexion/extension: ~ 90 deg flexion and extension to 60deg only with pain limiting ROM and with resistance to movement (+) swelling Lower Extremity ROM Assessment Within Functional Limits Strength Lower Extremity Strength Assessment Within Functional Limits Coordination Assessment Gross Coordination Gross Coordination WNL Muscle Tone Muscle Tone WNL Yes M6 PT-IP Treatment Start: 09/22/20 11:28 Freq: NEEDED Status: Active Protocol: Document 09/22/20 09:22 AB (Rec: 09/22/20 11:44 [email or web address]) Physical Therapy Treatment Education Education Provided Safety Other Treatments Other Treatment Performed received orders for L arm mobilization to prevent conctracture. requested OT eval orders from child support case officer. educated pt on importance of mobilizing and ROM exercises given and reviewed with pt. attempted PROM but pt unable to tolerate and was only able to move L elbow ~ 5-10 degrees and pt resisitive to movement complaining of increase pain and stated that he might have pulled a stitch out. assured pt that he did not pull a stitch out as ROM that pt was able to do was only ~ 5-10 deg from his resting postion of ~ 70 deg of flexion. pt stated that he has more pain now and needs pain meds but nurse just gave pt his pain meds. Left pt in bed as requested with call light and table within reach. M7 PT-IP Assessment and Plan Start: 09/22/20 11:28 Freq: NEEDED Status: Active Protocol: Document 09/22/20 09:22 (Rec: 09/22/20 11:44 [email or web address]) PT Summary Assessment and Plan Potential Rehabilitation Potential Fair Status of Condition at Evaluation Evolving Summary Impairments Pain,ROM,Strength,Balance, Coordination,Sensation,Tone, Cognition,Bed Mobility, Transfers,Gait,Activity Tolerance Assessment Summary PT eval completed and pt is independent with bed mobility, transfers, ambulation and stair climbing. HEP AROM exercises provided to pt but pt is resistive to mobilization of RUE. OT eval requested to assess further and also for ADL needs. No further PT intervention indicated at this time. Frequency of Treatment Frequency Of Treatment Discharge Recommendations To Nursing Amount of Assist Needed Independent Discharge Recommendations PT Discharge Recommendations Home,Outpatient PT Transportation Needs at Discharge Private Vehicle
--- NOTE | 2020-09-22 10:34 | PM.PNPO.1 ---
Subjective Subjective Date Patient Seen: 09/22/20 Time Patient Seen: 10:34 Interval history: no acute issues. Exam Vital Signs (past 8 hours): - 09/22/20 05:54 09/22/20 09:00 Temperature 97.2 F L 98.9 F Pulse Rate 81 73 Respiratory Rate 16 15 Blood Pressure 106/62 91/49 L Pulse Oximetry 98 98 Oxygen Delivery Method Room Air Oxygen Flow Rate 0 Narrative Exam Narrative: gen-adult male alert and oriented. left arm-incision CDI tender minimal surrounding errythema, drain SS. Objective Labs Result Diagrams: 09/22/20 05:45 09/21/20 07:45 Labs: Laboratory Results - last 24 hr 09/22/20 09/22/20 09/22/20 05:45 05:45 05:45 WBC 11.0 RBC 3.67 L Hgb 10.4 L Hct 31.0 L MCV 84.6 MCH 28.3 MCHC 33.5 RDW 14.6 Plt Count 512 H Neut % (Auto) 56.3 D Lymph % (Auto) 35.6 D [place] % (Auto) 4.3 Eos % (Auto) 3.3 Baso % (Auto) 0.5 Neut # (Auto) 6200 Lymph # (Auto) 3900 [place] # (Auto) 500 Eos # (Auto) 400 Baso # (Auto) 100 Hemoglobin A1c 5.7 Procalcitonin 8.15 H Assessment & Plan Post-op Postoperative Procedures: Procedures Operation Date: 09/19/20 15:45 Actual Procedures Side Surgeon p Arm I&D Left Beata Oconnor MD Operation Date: 09/21/20 14:45 Actual Procedures Side Surgeon p arm washout & debridement Left Beata Oconnor MD Postoperative status narrative: 24M SP debridement of left arm abscess secondary to IV drug abuse. Wound is healing infectious markers are down trending. -24 hrs more of IV antibiotics then convert to PO -f/u OT and PT -drain teaching will d/c with drain -wean IV pain meds Quality VTE Deep Vein Thrombosis/Pulmonary Embolism Present on Admission: No
--- NOTE | 2020-09-22 10:38 | PM.PN.1 ---
Subjective Subjective Date Patient Seen: 09/22/20 Interval history: Gus Huizar is 24-year-old male with a past medical history significant for IV drug and polysubstance abuse, atrial fibrillation and previous cerebellar aneurysm who presented to the ED with left forearm pain, abscess and surrounding cellulitis secondary to intravenous drug use. The patient is resting in bed comfortably. He now is status post debridement, drain placement and wound closure yesterday afternoon. He continues to have left forearm pain that is controlled with pain medication. He has no other complaints and denies headache, chest pain, shortness of breath, abdominal pain, nausea, vomiting, fever, chills, dysuria, diarrhea or constipation. He is voiding and eliminating without difficulty. He is up ambulating without assistance. Exam Vital Signs (past 8 hours): - 09/22/20 05:54 09/22/20 09:00 Temperature 97.2 F L 98.9 F Pulse Rate 81 73 Respiratory Rate 16 15 Blood Pressure 106/62 91/49 L Pulse Oximetry 98 98 Oxygen Delivery Method Room Air Oxygen Flow Rate 0 Narrative Exam Narrative: General: Young male sitting in bed and in no acute distress, appears chronically ill, appropriately interactive. HEENT: Normocephalic, atraumatic. External ears without defect. Pupils equal, round, and reactive to light. Anicteric sclerae, moist conjunctivae, and no lid lag. Oropharynx free of erythema and cobble stoning with moist mucosa. Neck: Supple with full range of motion. No lymphadenopathy or thyromegaly. Cardiovascular: Regular rhythm and rate without murmurs, rubs, or gallops appreciated. Pulmonary: Clear to auscultation bilaterally without crackles, wheezes, or rhonchi. Normal respiratory effort with no use of accessory muscles. Abdomen: Soft, bowel sounds present, nontender, nondistended. No hepatosplenomegaly or masses appreciated. Extremities: Left arm with dressing in place C/D/I and natalie drain in place with serosanguineous output. No clubbing, cyanosis, or edema in other extremities. Skin: Normal temperature, turgor, and texture; no rash, ulcers, or subcutaneous nodules appreciated. Neurological: Cranial nerves grossly intact. Psychiatric: Normal mood and affect. Alert and oriented to person, place, and time. Objective Labs Result Diagrams: 09/22/20 05:45 09/21/20 07:45 Labs: Laboratory Results - last 24 hr 09/22/20 09/22/20 09/22/20 05:45 05:45 05:45 WBC 11.0 RBC 3.67 L Hgb 10.4 L Hct 31.0 L MCV 84.6 MCH 28.3 MCHC 33.5 RDW 14.6 Plt Count 512 H Neut % (Auto) 56.3 D Lymph % (Auto) 35.6 D Lumpkin % (Auto) 4.3 Eos % (Auto) 3.3 Baso % (Auto) 0.5 Neut # (Auto) 6200 Lymph # (Auto) 3900 [place]umpkin # (Auto) 500 Eos # (Auto) 400 Baso # (Auto) 100 Hemoglobin A1c 5.7 Procalcitonin 8.15 H Assessment & Plan Assessment & Plan narrative: Gus Huizar is 24-year-old male with a past medical history significant for IV drug and polysubstance abuse, atrial fibrillation and previous cerebellar aneurysm who presented to the ED with left forearm pain, abscess and surrounding cellulitis secondary to intravenous drug use. 1. Acute left antecubital fossa abscess with surrounding cellulitis, secondary to IV drug use, present on admission. Active. -Patient reports swelling of left forearm x2 weeks with formation of abscess over the last several days prior to admission. -CT left arm with contrast demonstrated small abscess in the antecubital fossa of the left arm measuring 4.9 x 2.2 x 1.2 cm, diffuse subcutaneous edema of forearm, enlarged left axillary lymph node suspect reactive etiology. -Initial WBC 26.0 and trending down now normalized at 11.0. Initial procalcitonin 76.33 and trending down now 8.15. Continue to monitor WBC and procalcitonin daily. -Received vancomycin in ED. Discontinued vancomycin per pharmacist as patient has no evidence of MRSA. Continue Zosyn 3.375 g every 6 hours to treat Gram-positive, Gram-negative, Pseudomonas and anaerobes given IVDU. Plan to transition to oral antibiotics tomorrow. -Consulted general surgery, Dr. Oconnor, who performed I&D on 09/19/20 and surgical debridement with drain placement and wound closure 09/21/20. Continue postoperative management per General surgery and we appreciate their time and recommendations. -Continue physical and occupational therapy evaluation treatment. 2. IV drug and polysubstance abuse, chronic, present on admission. Stable. -Patient endorses only injecting heroin but has also smoked methamphetamine. Patient states his desire to quit and reports being sober for approximately 5 days prior to admission and experiencing withdrawal symptoms. -Lengthy discussion and teaching on drug abuse, complications and risks performed by admitting provider. ASSISTANT PROFESSOR OF GERMAN consulted and we appreciate her time and recommendations. ASSISTANT PROFESSOR OF GERMAN arranged for possible outpatient polysubstance treatment and initial assessment today 09/22 in hospital. Patient is interested in Suboxone and plans to seek treatment at a Suboxone Clinic once discharged. 3. Tobacco dependence, chronic, present on admission. Stable. -Patient reports smoking 1.5-2 packs per day though reports he is trying to quit cigarettes as well. -Previous provider counseled patient extensively on smoking cessation. -Continue nicotine patch daily to avoid nicotine withdrawal. 4. History of paroxysmal atrial fibrillation. -Patient currently in sinus rhythm. -Patient reports his last episode of atrial fibrillation occurred approximately 6 months ago in which he was hospitalized but unable to obtain records. He reports he is able to convert to sinus rhythm with coughing. -Continue to monitor closely on telemetry. Patient has been sinus rhythm/sinus tachycardia throughout hospitalization thus far. 5. Severe acute protein calorie malnutrition, present on admission. Active. -BMI 20.2. Secondary to limited access to food and suppressed appetite secondary to IV drug use as evidence by 24.5% unintentional weight loss in 2 months (severe), patient reports relapsing into daily heroin use for past 3 months, eating one meal per week for past 3 months, patient is homeless living in car, patient reports heroin withdrawal over past 2 weeks, patient admitted for I&D of infected, unhealing injection site wound. -Consulted dietitian and we appreciate her time and recommendations. Code status: Full code, the patient designates his mother Aliza Huizar to be his surrogate decision maker VTE prophylaxis: SCDs, SQ Heparin Disposition: Patient will likely discharge in the next 1-2 days depending on improvement in left arm abscess with IV antibiotics. Quality VTE Deep Vein Thrombosis/Pulmonary Embolism Present on Admission: No
--- NOTE | 2020-09-22 12:41 | PT-IP ANOTE ---
PT eval was completed and received another from Dr. Molina for another PT eval. Pt is independent with functional mobility. HEP for LUE reviewed and given to pt. OT to address further needs. Pt is a PLOF with mobility and no further PT intervention indicated at this time. will d/c PT eval order.
[2020-09-22] MEDS: HEPARIN 5,000 UNIT/ML VIAL 5000 UNIT SUBCUT ×2 (12:53→20:19)
[2020-09-22 13:00] VITALS: BP 102/55; PULSE 76; RESP 16; TEMP 37.1; O2SAT 99
--- NOTE | 2020-09-22 13:50 | OT.IP.EVAL ---
Current Diagnoses Other psychoactive substance abuse, uncomplicated (09/18/20) Unspecified atrial fibrillation (09/18/20) Cutaneous abscess of left upper limb (09/18/20) Cellulitis of left upper limb (09/18/20) Contact with and (suspected) exposure to other bacterial communicable diseases (09/18/20) Surgery Performed Operation Date: 09/19/20 15:45 Actual Procedures p Arm I&D(Left) - Beata Oconnor MD Operation Date: 09/21/20 14:45 Actual Procedures p arm washout & debridement(Left) - Beata Oconnor MD Past Medical History (Last Updated 09/19/20 @ 11:44 by Beata Oconnor MD) Atrial fibrillation IV drug abuse MRSA exposure Occupational Therapy Inpatient Evaluation/Re-Eval M1 PT/OT-IP Prior Functional Status Start: 09/22/20 11:28 Freq: NEEDED Status: Active Protocol: Document 09/22/20 13:59 CGR (Rec: 09/22/20 14:09 CGR [email or web address]) Medical Review Prior Functional Status Medical History Reviewed Yes Communication able to make needs known Mobility and Gait pt stated that he is independent with all mobilities and ambulation without AD Activities of Daily Living and IADL's Pt was IND in all ADLS without assist Social History Household Members family Living Arrangements House Number of Floors (Floors) Two Floors Number of Stairs To Enter/Railing? no steps to enter 10 steps down to bedroom level with bilateral rails Home Environment High Toilet,Tub/Shower Home Equipment Front Wheel Walker,Grab Bars In Shower Employment Status Unemployed Additional Social History Comment Pt states that he typically lives out of his car but will be discharging home with his family prior to entering an inpatient treatment facility. M2 OT-IP Current Condition Start: 09/22/20 13:58 Freq: Status: Active Protocol: Document 09/22/20 13:59 CGR (Rec: 09/22/20 14:09 CGR [email or web address]) Occupational Therapy Current Condition Current Condition Evaluation Date 09/22/20 Treatment Diagnosis cellulitis and abscess to the L antecubital fossa from injection site. Diagnosis Onset Date 09/18/20 M3 OT- IP Subjective and Pain Start: 09/22/20 13:58 Freq: Status: Active Protocol: Document 09/22/20 13:59 CGR (Rec: 09/22/20 14:09 CGR [email or web address]) OT- Subjective Occupational Therapy Visit Type Type Initial Evaluation Visit Start Time 13:20 Visit Stop Time 13:50 Total Visit Minutes 30 OT Pain Assessment Pain When Pain Assessed At Rest Pain Present Pain Present Pain Reported Location Left Arm Scale Used States it hurts alot but did not rate Management Techniques Distraction,Modification of Treatment,Re-positioning M4 OT- IP ADL's Start: 09/22/20 13:58 Freq: Status: Active Protocol: Document 09/22/20 13:59 CGR (Rec: 09/22/20 14:09 CGR [email or web address]) OT [id number] Comments OT Self-Feeding Comments Not meal time OT ADL-Grooming Comments OT Grooming Comments Not performed OT ADL-Oral Care Comments Oral Care Comments Not performed OT ADL-Dressing Comments OT Dressing Comments Not performed OT ADL-Toileting General Evaluation Toileting Ability Independent OT ADL-Bathing Comments OT Bathing Comments Not performed M5 OT- IP IADL's Start: 09/22/20 13:58 Freq: Status: Active Protocol: Document 09/22/20 13:59 CGR (Rec: 09/22/20 14:09 CGR [email or web address]) OT-Instrumental Activities of Daily Living Deficits IADL Deficits Identified No Deficits Home Safety Awareness Awareness of Need for Assistance at Home Good Awareness Ability to Problem Solve Emergency Able to Problem Solve Situations Medication Management Medication Management No Deficits Identified Money Management Money Management No Deficits Identified Meal Preparation Meal Preparation No Deficits Identified Etymology Professor Etymology Professor No Deficits Identified Driving Driving Comments 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 M6 OT- IP Functional Cognition Start: 09/22/20 13:58 Freq: Status: Active Protocol: Document 09/22/20 13:59 CGR (Rec: 09/22/20 14:09 CGR [email or web address]) Cognitive Factors Limiting Selfcare Function Cognitive Ability Level of Alertness Alert Patient Orientation Name,Age,Birthday,Month,Date, Year,Day of Week,Place, Situation Attention Span Ability Capable of Focused Attention, Capable of Sustained Attention Ability to Follow Commands Able to Follow Multi-Step Commands Memory Description No Deficits Noted Safety Awareness No Deficits Noted OT- Vision and Hearing OT- Hearing Assessment OT- Hearing Assessment WFL OT- Vision Assessment Visual Acuity WFL Vision Assessment Comments Pt states he has glasses but never wears them. M7 OT- IP Mobility and Balance Start: 09/22/20 13:58 Freq: Status: Active Protocol: Document 09/22/20 13:59 CGR (Rec: 09/22/20 14:09 CGR [email or web address]) OT- Bed Mobility Assessment Rolling Type of Rolling Roll to Right Level of Assistance Independent Supine to Sit Supine to Sit Assist Independent Sit to Supine Sit to Supine Assist Independent Scooting Scooting to Edge of Bed Independent OT-Transfer Assessment Sit to and From Stand Sit to and from Stand Independent Transfers Transfer Ability Independent Technique Transfer Destination Bed,Chair Transfer Technique Stand Step Pivot Devices Transfer Assistive Devices None OT- Gait Assessment Gait Gait Assistance Required: Independent OT- Balance Assessment Sitting Balance and Reactions Static Sitting Balance Ability Normal Dynamic Sitting Balance Ability Normal M8 OT- IP Objective Assessments Start: 09/22/20 13:58 Freq: Status: Active Protocol: Document 09/22/20 13:59 CGR (Rec: 09/22/20 14:09 CGR [email or web address]) OT Gross Range of Motion Upper Extremity Range of Motion Assessment Within Functional Limits OT Strength Comments Strength Comments L arm not tested d/t pain OT- Coordination Assessment Upper Extremity Finger to Nose Test Within Functional Limits Finger Tapping Test Within Functional Limits OT-Muscle Tone Assessment Muscle Tone WNL Yes OT Sensation Assessment Edema Edema Present Edema Comments to the LUE M9 OT- IP Assessment and Plan Start: 09/22/20 13:58 Freq: Status: Active Protocol: Document 09/22/20 13:59 CGR (Rec: 09/22/20 14:09 CGR [email or web address]) OT Summary Assessment and Plan Potential Rehabilitation Potential Excellent Analytic Complexity at Evaluation Low Summary OT Impairments Pain Progress Towards Goals Slow Progress due to Pain Assessment Summary Pt presents as a low complexity evaluation s/p admit for cellulitis and abscess to the L antecubital fossa. Pt underwent I&D on with placement of a drain. Pt performed limited OT eval assessment and then participated in LUE exercises. Educated pt on the importance of ROM and muscle movement in controlling edema and preventing contracture. Pt was provided a handout of exercises by P.T. and performed with OT on this date x10 to hand, wrist, forearm, and shld. Pt assisted with relaxation techniques to achieve full extension of the L elbow and was able to hold for ~15 seconds. Pt states understanding of the need for exercises. Set up time for family training to assist with exercises 09/23 at 9am. Pt calling family to confirm that 9am will work. Will continue to follow for family training. Goals Patient/Caregiver Education Goal Demonstrate Post-Op Precautions,Caregiver Independent Assisting Patient Days to Meet Goals 1 Frequency of Treatment Frequency Of Treatment Once a Day Treatment Plan OT Treatment Plan ADL Training,Therapeutic Exercises,Patient/Family Education,Discharge Planning Other Treatment Recommendations and Next caregiver training with family Treatment Focus to assist with ROM Discharge Recommendations OT Discharge Recommendations Home Transportation Needs at Discharge Private Vehicle
--- NOTE | 2020-09-22 15:04 | CM.SWNOTE ---
MILIEU MANAGER Note Spoke w/Olga, [facility] P# [phone], this morning after she completed her assessment with patient at bedside. Olga explains that the local [facility] ([facility]) treatment facility has had a COVID-19 outbreak and so they are not accepting admissions at this time. Olga plans to complete her assessment and begin calls to alternative treatment facilities throughout the [facility] ([facility]) and will fax completed assessment once bed is found. Patient will require an updated COVID-19 test before admission to any treatment facility. Olga has left her contact information w/patient and strongly encouraged patient to go from [facility] DC to [facility] [facility] [place] to establish Suboxone treatment while he awaits a bed date at an inpatient [facility] treatment facility. Olga can assist in expediting care at [facility] if needed; Olga emphasizes to this MILIEU MANAGER that her hope for patient is to DC from Thursday so he can show up at [facility] same day and begin his Suboxone management (trying to avoid IV Heroin relapse) This MILIEU MANAGER spoke w/patient this afternoon to review above, patient states he has been trying to sleep all day and haven't been able to. This MILIEU MANAGER reviews plan set forth by Olga at [facility] and patient agreeable to this, states he plans to DC home w. his mom. This MILIEU MANAGER encouraged patient to review plan again w/his mom and that both patient/mom should be in verbal agreement, w/patient committed to the plan of continued contact w/[facility] awaiting a bed date for inpatient [facility] treatment. Patient plans to arrive at [facility] Thursday. Spoke w/Dr Adan who is in agreement w/tentative DC date- Thursday09.24.20, feels patient will be medically stable by then. Patient denies further needs from this MILIEU MANAGER, states he can discuss w/his mom. If patient prescribed narcotics upon DC, MILIEU MANAGER might be requested to facilitate conversation between patient, MD and family re: safe use (?) P: DC expected Thursday, home w/family, po Rx, f/u at Suboxone facility, await a bed date at an inpatient [facility] treatment facility. SRINIVASA Anderson
[2020-09-22 17:31] VITALS: BP 105/56; PULSE 75; RESP 16; TEMP 37; O2SAT 99
[2020-09-22] MEDS: DOCUSATE 100 MG CAPSULE PO (20:20)
[2020-09-22 20:23] VITALS: BP 115/66; PULSE 86; RESP 16; TEMP 36.4; O2SAT 99
[2020-09-22 23:36] VITALS: BP 128/65; PULSE 93; RESP 16; TEMP 36.2; O2SAT 97
--- NOTE | 2020-09-22 23:57 | PC.NURSE ---
Addendum entered by Deirdre Argueta R.N. 09/23/20 00:41: 0040 Pt reports 7/10 pain, requesting dilaudid IV and oxycodone PO because I don't want to have to wait 45 minutes for the pain medicine to kick in. Administered both pain meds. Pt reported burning at IV site during dilaudid IVP; slowed down IVP. Pt stated, Usually I taste the medicine and feel the effect from it but I didn't feel it that time. I don't think it went in. I think my IV is bad--it must have gone into my skin. No s/sx of infiltration: no erythema, no swelling. Pt states, I can see my skin bubbling. This is what happened last time with my last IV. I explained to the patient the only bubbling I see is from the transparent dressing forming over the IV, creating air in between. I told him we will keep an eye on the site, but I do not want to remove it at this time because I do not see any signs of a bad IV. Original Note: 2300 Received safe hand-off report. The patient is alert and oriented x4, sitting up in bed and watching television. He appears anxious, legs are crossed and he is anxiously shaking his leg asking if he can have more Ativan and when his next dose of dilaudid and oxycodone is due. Pt informed of medication timing. No s/sx of distress. Bed alarm is on.
[2020-09-23] MEDS: OXYCODONE IR 10 MG TABLET PO ×2 (00:30→10:52)
[2020-09-23] MEDS: HYDROMORPHONE 1 MG INJ IV ×3 (00:30→10:43)
[2020-09-23] MEDS: PIPERACILLIN-TAZO 3.375 GM/50 ML FROZ.PIGGY IV ×2 (02:34→07:44)
[2020-09-23] MEDS: SODIUM CHLORIDE 0.9% 250 ML 21 ML IV (02:34)
[2020-09-23 05:09] LABS: Add Manual Diff / Slide Review NO; Basophils Absolute Auto 100 /uL (0-100); Basophils Percent Auto 0.9 % (0-2); Eosinophils Absolute Auto 500 /uL (0-450); Eosinophils Percent Auto 4.6 % (2-4); Hematocrit 34.7 % (41-53); Hemoglobin 11.4 g/dL (13.5-17.5); Lymphocytes Absolute Auto 3900 /uL (1100-4500); Lymphocytes Percent Auto 34.3 % (25-40); Mean Corpuscular Hemoglobin 27.8 PG (26-34); Mean Corpuscular Volume 84.3 fL (80-100); Monocytes Absolute Auto 600 /uL (0-900); Monocytes Percent Auto 5.3 % (3-14); Neutrophils Absolute Auto 6200 /uL (1500-7000); Neutrophils Percent Auto 54.9 % (50-75); Platelet Count 611 X10^3/uL (150-400); Red Blood Cell Count 4.11 X10^6/uL (4.5-5.9); Red Cell Distribution Width 14.9 % (11.6-14.8); White Blood Cell Count 11.3 X10^3/uL (4.5-11.0)
[2020-09-23] MEDS: OXYCODONE IR 5 MG TABLET PO ×2 (05:18→16:46)
[2020-09-23 05:19] LABS: BUN Creatinine Ratio 21.3 (6-22); Blood Urea Nitrogen 13 mg/dL (9-20); Calcium 8.9 mg/dL (8.4-10.2); Carbon Dioxide 28 mmol/L (22-32); Chloride 106 mmol/L (98-107); Estimated Glomerular Filt Rate > 60.0 mL/min (>60); Glucose 104 mg/dL (70-100); HEMOLYSIS < 15 (0-50); Magnesium 2.3 mg/dL (1.6-2.3); Potassium 3.9 mmol/L (3.4-5.1); Sodium 138 mmol/L (137-145)
[2020-09-23 05:35] LABS: Procalcitonin 5.33 ng/mL (<0.5)
[2020-09-23 05:48] VITALS: BP 95/49; PULSE 89; RESP 16; TEMP 36.3; O2SAT 98
[2020-09-23] MEDS: HEPARIN 5,000 UNIT/ML VIAL 5000 UNIT SUBCUT (07:44)
[2020-09-23] MEDS: DOCUSATE 100 MG CAPSULE PO (07:44)
[2020-09-23] MEDS: NICOTINE 21 MG PATCH TOP (07:44)
[2020-09-23] MEDS: SODIUM CHLORIDE 0.9% FLUSH 10 ML IV ×2 (07:45→19:31)
[2020-09-23] MEDS: LORazepam 2 MG/ML INJ 1 MG IV (07:57)
[2020-09-23 08:19] VITALS: BP 106/57; PULSE 84; RESP 16; TEMP 36.7; O2SAT 99
--- NOTE | 2020-09-23 09:09 | OT.IP.TRT ---
Current Diagnoses Other psychoactive substance abuse, uncomplicated (09/18/20) Unspecified atrial fibrillation (09/18/20) Cutaneous abscess of left upper limb (09/18/20) Cellulitis of left upper limb (09/18/20) Contact with and (suspected) exposure to other bacterial communicable diseases (09/18/20) Surgery Performed Operation Date: 09/19/20 15:45 Actual Procedures p Arm I&D(Left) - Beata Oconnor MD Operation Date: 09/21/20 14:45 Actual Procedures p arm washout & debridement(Left) - Beata Oconnor MD Occupational Therapy Treatment Note M2 OT-IP Current Condition Start: 09/22/20 13:58 Freq: Status: Active Protocol: Document 09/22/20 13:59 CGR (Rec: 09/22/20 14:09 CGR [email or web address]) Occupational Therapy Current Condition Current Condition Evaluation Date 09/22/20 Treatment Diagnosis cellulitis and abscess to the L antecubital fossa from injection site. Diagnosis Onset Date 09/18/20 M3 OT- IP Subjective and Pain Start: 09/22/20 13:58 Freq: Status: Active Protocol: Document 09/23/20 09:30 CGR (Rec: 09/23/20 09:36 CGR [email or web address]) OT- Subjective Occupational Therapy Visit Type Type Progress Note Visit Start Time 08:50 Visit Stop Time 09:09 Total Visit Minutes 19 OT Pain Assessment Pain When Pain Assessed At Rest Pain Present Pain Present Pain Reported Location Left Arm Scale Used Did not rate M4 OT- IP ADL's Start: 09/22/20 13:58 Freq: Status: Active Protocol: Document 09/22/20 13:59 CGR (Rec: 09/22/20 14:09 CGR [email or web address]) OT [id number] Comments OT Self-Feeding Comments Not meal time OT ADL-Grooming Comments OT Grooming Comments Not performed OT ADL-Oral Care Comments Oral Care Comments Not performed OT ADL-Dressing Comments OT Dressing Comments Not performed OT ADL-Toileting General Evaluation Toileting Ability Independent OT ADL-Bathing Comments OT Bathing Comments Not performed M5 OT- IP IADL's Start: 09/22/20 13:58 Freq: Status: Active Protocol: Document 09/22/20 13:59 CGR (Rec: 09/22/20 14:09 CGR [email or web address]) OT-Instrumental Activities of Daily Living Deficits IADL Deficits Identified No Deficits Home Safety Awareness Awareness of Need for Assistance at Home Good Awareness Ability to Problem Solve Emergency Able to Problem Solve Situations Medication Management Medication Management No Deficits Identified Money Management Money Management No Deficits Identified Meal Preparation Meal Preparation No Deficits Identified Fisheries Director Fisheries Director No Deficits Identified Driving Driving Comments 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 OT- IP Functional Cognition Start: 09/22/20 13:58 Freq: Status: Active Protocol: Document 09/22/20 13:59 CGR (Rec: 09/22/20 14:09 CGR [email or web address]) Cognitive Factors Limiting Selfcare Function Cognitive Ability Level of Alertness Alert Patient Orientation Name,Age,Birthday,Month,Date, Year,Day of Week,Place, Situation Attention Span Ability Capable of Focused Attention, Capable of Sustained Attention Ability to Follow Commands Able to Follow Multi-Step Commands Memory Description No Deficits Noted Safety Awareness No Deficits Noted OT- Vision and Hearing OT- Hearing Assessment OT- Hearing Assessment WFL OT- Vision Assessment Visual Acuity WFL Vision Assessment Comments Pt states he has glasses but never wears them. M7 OT- IP Mobility and Balance Start: 09/22/20 13:58 Freq: Status: Active Protocol: Document 09/22/20 13:59 CGR (Rec: 09/22/20 14:09 CGR [email or web address]) OT- Bed Mobility Assessment Rolling Type of Rolling Roll to Right Level of Assistance Independent Supine to Sit Supine to Sit Assist Independent Sit to Supine Sit to Supine Assist Independent Scooting Scooting to Edge of Bed Independent OT-Transfer Assessment Sit to and From Stand Sit to and from Stand Independent Transfers Transfer Ability Independent Technique Transfer Destination Bed,Chair Transfer Technique Stand Step Pivot Devices Transfer Assistive Devices None OT- Gait Assessment Gait Gait Assistance Required: Independent OT- Balance Assessment Sitting Balance and Reactions Static Sitting Balance Ability Normal Dynamic Sitting Balance Ability Normal M8 OT- IP Objective Assessments Start: 09/22/20 13:58 Freq: Status: Active Protocol: Document 09/22/20 13:59 CGR (Rec: 09/22/20 14:09 CGR [email or web address]) OT Gross Range of Motion Upper Extremity Range of Motion Assessment Within Functional Limits OT Strength Comments Strength Comments L arm not tested d/t pain OT- Coordination Assessment Upper Extremity Finger to Nose Test Within Functional Limits Finger Tapping Test Within Functional Limits OT-Muscle Tone Assessment Muscle Tone WNL Yes OT Sensation Assessment Edema Edema Present Edema Comments to the NEIDA M9 OT- IP Assessment and Plan Start: 09/22/20 13:58 Freq: Status: Active Protocol: Document 09/23/20 09:30 CGR (Rec: 09/23/20 09:36 CGR [email or web address]) OT Summary Assessment and Plan Potential Rehabilitation Potential Excellent Analytic Complexity at Evaluation Low Summary OT Impairments Pain Progress Towards Goals Slow Progress due to Pain Assessment Summary Pt presents as a low complexity evaluation s/p admit for cellulitis and abscess to the L antecubital fossa. Pt underwent I&D on with placement of a drain. Pts mother present for family training of LUE exercise. Pt participated in LUE exercises. Educated pt on the importance of ROM and muscle movement in controlling edema and preventing contracture again on this date. Educated P.T. mother on handout of exercises and demonstrated relaxation techniques for achieving elbow ROM with pain. Pt assisted with relaxation techniques to achieve full extension minus ~ 5 degrees of the L elbow and was able to hold for ~15 seconds. Pt states understanding of the need for exercises. Pt may benefit from follow up for review of exercises and assist with achieving full ROM to elbow while still hospitalized. Goals Patient/Caregiver Education Goal Demonstrate Post-Op Precautions,Caregiver Independent Assisting Patient Days to Meet Goals 1 Frequency of Treatment Frequency Of Treatment Once a Day Treatment Plan OT Treatment Plan ADL Training,Therapeutic Exercises,Patient/Family Education,Discharge Planning Other Treatment Recommendations and Next ROM and exercises Treatment Focus Discharge Recommendations OT Discharge Recommendations Home Transportation Needs at Discharge Private Vehicle
--- NOTE | 2020-09-23 10:09 | DI.CT.S_ITS ---
PROCEDURE: CT UE LT W CON INDICATIONS: f/u LUE abscess sp drainage TECHNIQUE: After the administration of intravenous contrast, 3 mm axial sections acquired of the left upper extremity, with coronal and sagittal reformats. COMPARISON: [facility], CT, CT UE LT W CON, 09/18/2020, 20:18. FINDINGS: Image quality: There is streak artifact seen, particularly involving the forearm. Bones: No focal bony abnormality is seen. No dislocation. Soft tissues: On the prior study, there is a faintly seen small fluid collection involving the soft tissues of the forearm. No residual fluid collection is detected. Generalized soft tissue swelling can be seen involving the forearm, however. The swelling has clearly decreased compared to the prior. IMPRESSION: No residual abscess collection is identified. Dictated by: Darryn Arshad M.D. on 09/23/2020 at 10:48 Approved by: Darryn Arshad M.D. on 09/23/2020 at 10:53
--- NOTE | 2020-09-23 10:17 | P.PN_ITS ---
Subjective Subjective Date Patient Seen: 09/23/20 Time Patient Seen: 10:17 Interval history: no acute events. continues IV pain meds Exam Vital Signs (past 8 hours): - 09/23/20 05:48 09/23/20 08:19 Temperature 97.4 F L 98.0 F Pulse Rate 89 84 Respiratory Rate 16 16 Blood Pressure 95/49 L 106/57 L Pulse Oximetry 98 99 Oxygen Delivery Method Room Air Oxygen Flow Rate 0 Narrative Exam Narrative: Gen-adult male alert and oriented LUE-tender, incision CDI minimal celluitis, remains tender swelling about the same as yesterday, drain serosanginous Objective Labs Result Diagrams: 09/23/20 04:50 09/23/20 04:50 Labs: Laboratory Results - last 24 hr 09/23/20 09/23/20 09/23/20 04:50 04:50 04:50 WBC 11.3 H RBC 4.11 L Hgb 11.4 L Hct 34.7 L MCV 84.3 MCH 27.8 MCHC 33.0 RDW 14.9 H Plt Count 611 H Neut % (Auto) 54.9 Lymph % (Auto) 34.3 [place] % (Auto) 5.3 Eos % (Auto) 4.6 H Baso % (Auto) 0.9 Neut # (Auto) 6200 Lymph # (Auto) 3900 [place] # (Auto) 600 Eos # (Auto) 500 H Baso # (Auto) 100 Sodium 138 Potassium 3.9 Chloride 106 Carbon Dioxide 28 BUN 13 Creatinine 0.61 L Estimated GFR > 60.0 BUN/Creatinine Ratio 21.3 Glucose 104 H Calcium 8.9 Magnesium 2.3 Procalcitonin 5.33 H Assessment & Plan Post-op Postoperative Procedures: Procedures Operation Date: 09/19/20 15:45 Actual Procedures Side Surgeon p Arm I&D Left Beata Oconnor MD Operation Date: 09/21/20 14:45 Actual Procedures Side Surgeon p arm washout & debridement Left Beata Oconnor MD Postoperative status narrative: 24M IV drug abuse with left upper extremity abscess sp I&D. Infectious markers have downtrended but not yet normalized. Continues to have significant pain requiring IV pain meds. Unclear to me if pain is secondary to the infectious process vs substance abuse. Plan -CT LUE today reassess for any remaining fluid collection. If adequately drained transition to PO antibiotics -Possible dc tomorrow -switch from IV to PO pain meds when able Quality VTE Deep Vein Thrombosis/Pulmonary Embolism Present on Admission: No
[2020-09-23] MEDS: ACETAMINOPHEN 325 MG TABLET 650 MG PO (10:52)
[2020-09-23 11:59] VITALS: BP 110/62; PULSE 95; RESP 15; TEMP 36.9; O2SAT 97
[2020-09-23] MEDS: AMOXICILLIN/CLAV 875/125 MG 1 TAB PO ×2 (13:28→19:31)
[2020-09-23] MEDS: LORazepam 1 MG TABLET PO ×2 (13:28→19:30)
--- NOTE | 2020-09-23 13:50 | PM.PN.1 ---
Subjective Subjective Date Patient Seen: 09/23/20 Interval history: Gus Huizar is 24-year-old male with a past medical history significant for IV drug and polysubstance abuse, atrial fibrillation and previous cerebellar aneurysm who presented to the ED with left forearm pain, abscess and surrounding cellulitis secondary to intravenous drug use. The patient is resting in bed comfortably. He continues to have left forearm pain that is controlled with oxycodone, IV hydromorphone and Ativan. He reports that he is using the pain medications every 4 hours as his pain is persistent and barely tolerable. Plan to discontinue IV hydromorphone as patient is likely to discharge in the next 24 hours and will increase oxycodone dose. He has no other complaints and denies headache, chest pain, shortness of breath, abdominal pain, nausea, vomiting, fever, chills, dysuria, diarrhea or constipation. He is voiding and eliminating without difficulty. He is up ambulating without assistance. General surgery repeated CT left arm which shows no fluid collection and will plan to transition to PO antibiotics today. Exam Vital Signs (past 8 hours): - 09/23/20 05:48 09/23/20 08:19 Temperature 97.4 F L 98.0 F Pulse Rate 89 84 Respiratory Rate 16 16 Blood Pressure 95/49 L 106/57 L Pulse Oximetry 98 99 Oxygen Delivery Method Room Air Oxygen Flow Rate 0 Narrative Exam Narrative: General: Young male sitting in bed and in no acute distress, appears chronically ill, appropriately interactive. HEENT: Normocephalic, atraumatic. External ears without defect. Pupils equal, round, and reactive to light. Anicteric sclerae, moist conjunctivae, and no lid lag. Oropharynx free of erythema and cobble stoning with moist mucosa. Neck: Supple with full range of motion. No lymphadenopathy or thyromegaly. Cardiovascular: Regular rhythm and rate without murmurs, rubs, or gallops appreciated. Pulmonary: Clear to auscultation bilaterally without crackles, wheezes, or rhonchi. Normal respiratory effort with no use of accessory muscles. Abdomen: Soft, bowel sounds present, nontender, nondistended. No hepatosplenomegaly or masses appreciated. Extremities: Left arm dressing in place C/D/I and Arpan drain in place with minimal serosanguineous output. Left arm edema resolving. No clubbing, cyanosis, or edema in other extremities. Left arm Skin: Normal temperature, turgor, and texture; no rash, ulcers, or subcutaneous nodules appreciated. Neurological: Cranial nerves grossly intact. Psychiatric: Normal mood and affect. Alert and oriented to person, place, and time. Objective Labs Result Diagrams: 09/23/20 04:50 09/23/20 04:50 Labs: Laboratory Results - last 24 hr 09/23/20 09/23/20 09/23/20 04:50 04:50 04:50 WBC 11.3 H RBC 4.11 L Hgb 11.4 L Hct 34.7 L MCV 84.3 MCH 27.8 MCHC 33.0 RDW 14.9 H Plt Count 611 H Neut % (Auto) 54.9 Lymph % (Auto) 34.3 [place] % (Auto) 5.3 Eos % (Auto) 4.6 H Baso % (Auto) 0.9 Neut # (Auto) 6200 Lymph # (Auto) 3900 [place] # (Auto) 600 Eos # (Auto) 500 H Baso # (Auto) 100 Sodium 138 Potassium 3.9 Chloride 106 Carbon Dioxide 28 BUN 13 Creatinine 0.61 L Estimated GFR > 60.0 BUN/Creatinine Ratio 21.3 Glucose 104 H Calcium 8.9 Magnesium 2.3 Procalcitonin 5.33 H Assessment & Plan Assessment & Plan narrative: Gus Huizar is 24-year-old male with a past medical history significant for IV drug and polysubstance abuse, atrial fibrillation and previous cerebellar aneurysm who presented to the ED with left forearm pain, abscess and surrounding cellulitis secondary to intravenous drug use. 1. Acute left antecubital fossa abscess with surrounding cellulitis, secondary to IV drug use, present on admission. Active. -Patient reports swelling of left forearm x2 weeks with formation of abscess over the last several days prior to admission. -CT left arm with contrast demonstrated small abscess in the antecubital fossa of the left arm measuring 4.9 x 2.2 x 1.2 cm, diffuse subcutaneous edema of forearm, enlarged left axillary lymph node suspect reactive etiology. -Blood cultures x2 had no growth. Wound culture grew streptococcus mitis/zabrina resistant to tetracycline and prevotella sandra and intermedia. -Initial WBC 26.0 and trending down now 11.3. Initial procalcitonin 76.33 and trending down now 5.33. Continue to monitor WBC and procalcitonin daily. -Received vancomycin in ED. Discontinued vancomycin per pharmacist as patient has no evidence of MRSA. Switched Zosyn 3.375 g every 6 hours to PO Augmentin 875-125 mg twice daily 10 09/[address] left arm with contrast did not demonstrate residual fluid collection or abscess. -Consulted general surgery, Dr. Oconnor, who performed I&D on 09/19/20 and surgical debridement with drain placement and wound closure on 09/21/20. Continue postoperative management per General surgery and we appreciate their time and recommendations. -Continue physical and occupational therapy evaluation treatment. -Continue pain management with oxycodone 15 mg every 4 hours and additional oxycodone 5 mg every 4 only if needed for breakthrough pain. Discontinued IV hydromorphone. 2. IV drug and polysubstance abuse, chronic, present on admission. Stable. -Patient endorses only injecting heroin but has also smoked methamphetamines. Patient states his desire to quit and reports being sober for approximately 5 days prior to admission and experiencing withdrawal symptoms. -Continue pain management as above. -Lengthy discussion and teaching on drug abuse, complications and risks performed by admitting provider. WRITING CENTER DIRECTOR consulted and we appreciate her time and recommendations. WRITING CENTER DIRECTOR arranged for possible outpatient polysubstance inpatient treatment and had initial assessment on 09/22 in hospital. Patient is interested in Suboxone and plans to seek treatment at a Suboxone Clinic once discharged. 3. Tobacco dependence, chronic, present on admission. Stable. -Patient reports smoking 1.5-2 packs per day though reports he is trying to quit cigarettes as well. -Previous provider counseled patient extensively on smoking cessation. -Continue nicotine patch daily to avoid nicotine withdrawal. 4. History of paroxysmal atrial fibrillation. -Patient currently in sinus rhythm. -Patient reports his last episode of atrial fibrillation occurred approximately 6 months ago in which he was hospitalized but unable to obtain records. He reports he is able to convert to sinus rhythm with coughing. -Continue to monitor closely on telemetry. Patient has been sinus rhythm/sinus tachycardia throughout hospitalization thus far. 5. Severe acute protein calorie malnutrition, present on admission. Active. -BMI 20.2. Secondary to limited access to food and suppressed appetite secondary to IV drug use as evidence by 24.5% unintentional weight loss in 2 months (severe), patient reports relapsing into daily heroin use for past 3 months, eating one meal per week for past 3 months, patient is homeless living in car, patient reports heroin withdrawal over past 2 weeks, patient admitted for I&D of infected, unhealing injection site wound. -Consulted dietitian and we appreciate her time and recommendations. Code status: Full code, the patient designates his mother Aliza Huizar to be his surrogate decision maker VTE prophylaxis: SCDs, SQ Heparin Disposition: Patient will likely discharge home with his parents tomorrow if infectious markers and left arm infection continue to improve on PO antibiotics. Quality VTE Deep Vein Thrombosis/Pulmonary Embolism Present on Admission: No
[2020-09-23] MEDS: OXYCODONE IR 5 MG TABLET 15 MG PO ×2 (14:21→19:30)
[2020-09-23 16:33] VITALS: BP 108/69; PULSE 86; RESP 16; TEMP 37; O2SAT 96
--- NOTE | 2020-09-23 17:14 | PC.NURSE ---
Evening note: Gus slept until 1630, called staff into room, asking I want to know if I can go home, saying there is absolutely no reason for me to be here. I went to Dr Molina's office to notify her of patient request to DC. She said that both she & the surgeon do not want him to DC until tomorrow. I notified Gus of what Dr Molina told me, he said ok. He is quiet, oriented x3 & situation, somewhat guarded but cooperative. Snacks given, now eating his meal. Drsg to left arm is CDI. Rating pain to left arm 7 & a half, medicated with 5 mg oxycodone per new order.
[2020-09-23 19:32] VITALS: BP 119/66; PULSE 88; RESP 16; TEMP 37; O2SAT 97
[2020-09-24 01:23] VITALS: BP 95/53; PULSE 86; RESP 16; TEMP 36.6; O2SAT 95
[2020-09-24] MEDS: OXYCODONE IR 5 MG TABLET 15 MG PO ×3 (01:25→09:52)
[2020-09-24] MEDS: LORazepam 1 MG TABLET PO ×3 (01:27→09:52)
--- NOTE | 2020-09-24 01:41 | PC.NURSE ---
Addendum entered by Adriana Cortes R.N. 09/24/20 05:47: States pain is again 7/10 so requested/medicated with Oxycodone + Ativan. Original Note: Patient asleep since start of shift now awake complaining of 7/10 left UE pain so medicated with Oxycodone; also medicated with Ativan per his request. Is alert and oriented with very flat affect. Breath sounds CTA with RA sat of 95%. HRR. BP trending low and currently is 95/53. Denies nausea. BT present and abdomen is soft. Denies urinary problems; using urinal to void. Able to move himself in bed and is out of bed independently. CMS intact to left UE. Refusing to wear SCD's so reminded to do ankle waves when awake. Dressing to left UE is CDI. Hoping to discharge in the a.m.
[2020-09-24 05:18] LABS: Add Manual Diff / Slide Review NO; Basophils Absolute Auto 200 /uL (0-100); Basophils Percent Auto 1.3 % (0-2); Eosinophils Absolute Auto 300 /uL (0-450); Eosinophils Percent Auto 2.6 % (2-4); Hematocrit 37.8 % (41-53); Hemoglobin 12.6 g/dL (13.5-17.5); Lymphocytes Absolute Auto 3100 /uL (1100-4500); Lymphocytes Percent Auto 24.2 % (25-40); Mean Corpuscular HGB Conc 33.4 % (30-36); Mean Corpuscular Hemoglobin 28.2 PG (26-34); Mean Corpuscular Volume 84.6 fL (80-100); Monocytes Absolute Auto 800 /uL (0-900); Neutrophils Absolute Auto 8500 /uL (1500-7000); Neutrophils Percent Auto 65.9 % (50-75); Platelet Count 676 X10^3/uL (150-400); Red Blood Cell Count 4.47 X10^6/uL (4.5-5.9); Red Cell Distribution Width 14.9 % (11.6-14.8); White Blood Cell Count 12.8 X10^3/uL (4.5-11.0)
[2020-09-24 05:45] LABS: Procalcitonin 3.23 ng/mL (<0.5)
[2020-09-24] MEDS: AMOXICILLIN/CLAV 875/125 MG 1 TAB PO (09:08)
--- NOTE | 2020-09-24 09:09 | OT.IP.TRT ---
Current Diagnoses Other psychoactive substance abuse, uncomplicated (09/18/20) Unspecified atrial fibrillation (09/18/20) Cutaneous abscess of left upper limb (09/18/20) Cellulitis of left upper limb (09/18/20) Contact with and (suspected) exposure to other bacterial communicable diseases (09/18/20) Surgery Performed Operation Date: 09/19/20 15:45 Actual Procedures p Arm I&D(Left) - Beata Oconnor MD Operation Date: 09/21/20 14:45 Actual Procedures p arm washout & debridement(Left) - Beata Oconnor MD Occupational Therapy Treatment Note M2 OT-IP Current Condition Start: 09/22/20 13:58 Freq: Status: Active Protocol: Document 09/22/20 13:59 CGR (Rec: 09/22/20 14:09 CGR [email or web address]) Occupational Therapy Current Condition Current Condition Evaluation Date 09/22/20 Treatment Diagnosis cellulitis and abscess to the L antecubital fossa from injection site. Diagnosis Onset Date 09/18/20 M3 OT- IP Subjective and Pain Start: 09/22/20 13:58 Freq: Status: Active Protocol: Document 09/24/20 09:09 [facility] (Rec: 09/24/20 09:15 [facility] [id number]) OT- Subjective Occupational Therapy Visit Type Type Treatment Note Visit Start Time 09:01 Visit Stop Time 09:09 Total Visit Minutes 8 Occupational Therapy Visit Comments Patient Comments Pt not wanting to shower and insisting on going home. Pt agreed to show pt LUE exercises. Patient/Caregiver Goals To go home. OT Pain Assessment Pain When Pain Assessed During Mobility Pain Present Pain Present Pain Reported Location Left Arm Scale Used Did not rate M4 OT- IP ADL's Start: 09/22/20 13:58 Freq: Status: Active Protocol: Document 09/24/20 09:09 [facility] (Rec: 09/24/20 09:15 [facility] [id number]) OT ADL-Toileting General Evaluation Toileting Ability Independent M5 OT- IP IADL's Start: 09/22/20 13:58 Freq: Status: Active Protocol: Document 09/22/20 13:59 CGR (Rec: 09/22/20 14:09 CGR [email or web address]) OT-Instrumental Activities of Daily Living Deficits IADL Deficits Identified No Deficits Home Safety Awareness Awareness of Need for Assistance at Home Good Awareness Ability to Problem Solve Emergency Able to Problem Solve Situations Medication Management Medication Management No Deficits Identified Money Management Money Management No Deficits Identified Meal Preparation Meal Preparation No Deficits Identified Pediatric Cns Pediatric Cns No Deficits Identified Driving Driving Comments 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 M7 OT- IP Mobility and Balance Start: 09/22/20 13:58 Freq: Status: Active Protocol: Document 09/24/20 09:09 [facility] (Rec: 09/24/20 09:15 [facility] [id number]) OT-Transfer Assessment Comments Mobility Comments Pt independent to get back into bed from the bathroom. OT- Gait Assessment Gait Gait Assistance Required: Independent OT- Balance Assessment Sitting Balance and Reactions Static Sitting Balance Ability Normal Dynamic Sitting Balance Ability Normal Standing Balance and Reactions Static Standing Balance Ability Normal Dynamic Standing Balance Ability Normal M8 OT- IP Objective Assessments Start: 09/22/20 13:58 Freq: Status: Active Protocol: Document 09/22/20 13:59 CGR (Rec: 09/22/20 14:09 CGR [email or web address]) OT Gross Range of Motion Upper Extremity Range of Motion Assessment Within Functional Limits OT Strength Comments Strength Comments L arm not tested d/t pain OT- Coordination Assessment Upper Extremity Finger to Nose Test Within Functional Limits Finger Tapping Test Within Functional Limits OT-Muscle Tone Assessment Muscle Tone WNL Yes OT Sensation Assessment Edema Edema Present Edema Comments to the NEIDA Brown OT- IP Assessment and Plan Start: 09/22/20 13:58 Freq: Status: Active Protocol: Document 09/24/20 09:09 [facility] (Rec: 09/24/20 09:15 [facility] [id number]) OT Summary Assessment and Plan Potential Rehabilitation Potential Excellent Analytic Complexity at Evaluation Low Summary OT Impairments Pain Progress Towards Goals Progressing Toward Goals Assessment Summary Pt able to show good follow through of exercises shown to the pt by OT the other day. Pt now -3 degrees of extension for left elbow. Pt hoping to go home today pending medical needs. Goals Patient/Caregiver Education Goal Demonstrate Post-Op Precautions,Caregiver Independent Assisting Patient Days to Meet Goals 1 Frequency of Treatment Frequency Of Treatment Once a Day Treatment Plan OT Treatment Plan ADL Training,Therapeutic Exercises,Patient/Family Education,Discharge Planning Other Treatment Recommendations and Next ROM and exercises Treatment Focus Discharge Recommendations OT Discharge Recommendations Home Transportation Needs at Discharge Private Vehicle
[2020-09-24] MEDS: SODIUM CHLORIDE 0.9% FLUSH 10 ML IV (09:10)
[2020-09-24 09:11] VITALS: BP 130/73; PULSE 76; RESP 18; TEMP 36.4; O2SAT 98
--- NOTE | 2020-09-24 13:25 | PC.NURSE ---
Discharge instructions reviewed with patient and his father. Dressing changed as ordered prior to discharge, patient left with drain in place, intact and compressed and would to left arm CDI with dressing. IV removed intact. Patient wants to call surgeon's office himself to schedule follow up. Directions on wound care, drain care, and safe narcotic use reviewed and patient states he has no further questions or concerns. patient very eager to leave, and refused wheelchair ride out. Patient walked out with his father for discharge at home. Patient states he has resources needed to reach his counselor.
--- NOTE | 2020-09-24 18:09 | PM.DS.1 ---
History of Present Illness History of Present Illness Date Patient Seen: 09/24/20 Chief complaint: left arm swelling & pain Narrative: Mr. Gus Huizar is 24-year-old male with a past medical history significant for IV drug abuse, polysubstance abuse, atrial fibrillation and history of cerebellar aneurysm who presents to the ER with left arm pain. Patient presents with swelling from the distal upper arm to the hand with an abscess in the left antecubital fossa. Patient endorses IV drug abuse for the last several months using heroin as well as endorses smoking occasional meth. He last injected 2 weeks ago in left arm and over the last several days has had progressive pain swelling and redness. Patient had similar presentation on 07/30/2020 when he presented to the ER for cellulitis of the right antecubital fossa at which time he was treated and discharged on doxycycline. Patient further and sources that other individuals in the household have MRSA. Patient states he has been sober for the last 2 weeks and has been going through withdrawals complaining of runny nose but denies nausea vomiting, abdominal pain or tremors. He denies complaints of fevers or chills, flu or cold symptoms aside from the runny nose as described. He has had no known COVID-19 exposures. He denies headaches, dizziness or vision changes. Reports no complaints of chest pain or palpitations though he does report a history of atrial fibrillation with the last episode occurring approximately 6 months ago. He states that he can tell when the arrhythmia occurs and is able to cough and terminate the rhythm. Patient denies shortness of breath cough or wheeze. He denies epigastric or abdominal pain has a nausea vomiting and endorses a history of constipation secondary to opiate abuse. 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 Upon arrival to the ER patient has a temperature 99.1?, heart rate of 89, blood pressure 121/81, respirations 16 saturating 99% on room air. A CT of the left upper extremity is obtained finding a fluid collection in the region of the a antecubital fossa measuring 4.9 by 2.2 x 1.2 cm with diffuse subcutaneous edema in the forearm and distal proximal arm, enlarged left axillary lymph node. On laboratory analysis he has white count of 26.0, hemoglobin of 13.1, hematocrit of 39.9 platelets 153. His electrolytes within normal range knee has a BUN of 14 and creatinine 0.63. His nonfasting glucose is 111. COVID screening is negative. Dr. Oconnor is contacted through the emergency department increase to consult. The patient admitted to the medicine service for cellulitis with abscess. Discharge Providers Provider Date of admission: 09/18/20 22:36 Discharge Date: 09/24/20 Primary care physician: Scottie Almanza MD Consults: 09/18/20 22:53 Consult to Discharge Planning Routine Comment: 09/18/20 22:55 Consult to General Surgery Routine Comment: Consulting Provider: Beata Oconnor Reason for consultation: Cellulitis with abscess left antecubital fossa Has provider been notified: Yes 09/19/20 01:45 Consult to Dietitian, Adult Routine Comment: Reason For Exam: significant weight loss, IVDA 09/19/20 01:46 Consult to DRUM DRIER OPERATOR - Surface Water Manager Routine Comment: Polysubstance drug abuse DRUM DRIER OPERATOR Consult: Community Health Res Need 09/22/20 03:25 Consult to Physical Therapy Evaluate & Treat Comment: left arm mobilization; prevent contracture Physician Instructions: Evaluate and Treat 09/22/20 11:36 Consult to Occupational Therapy Evaluate & Treat Comment: Physician Instructions: Evaluate and treat 09/22/20 12:11 Consult to Physical Therapy Evaluate & Treat Comment: Physician Instructions: Evaluate and Treat Discharge provider: Tara Lynch MD Summary Hospital Course Discharge Diagnosis: 1. Cellulitis of the left arm with an abscess involving the left antecubital fossa. Status post I&D on the with repeat debridement and washout on 09/21. Abscess was measured at 2 cm deep, 10 x 8 cm water 2.History of substance abuse 3 severe protein calorie malnutrition, patient has a BMI of 20, he has not been eating, living out of his car, this puts him at risk for severe infection and multiple complication this is related to the patient's substance abuse. He is interested and will be going on Suboxone to discontinue heroin which is leading to decreased appetite and further weight loss 4. History of paroxysmal atrial fibrillation. 5. Nicotine dependence Hospital Course: Patient was admitted to the hospital for cellulitis of the left arm with an abscess involving the antecubital fossa. He has known history of intravenous drug abuse. Patient also has severe protein calorie malnutrition. Is nicotine dependence as well. Patient was placed on IV antibiotics. Initially vancomycin and Zosyn. However because of induration and concern for an abscess the patient was seen by General surgery. He was taken to the operating room and had an I&D of the abscess. There was necrotic tissue at the base of the abscess and he did not tolerate wound changing so he was taken back to the operating room 09 21 for further debridement. A drain was left in place. The patient grew strep mitis. He was switched to oral antibiotics cefdinir. He made slow but steady progress and was deemed appropriate for discharge home. The patient indicated a willingness and desire to go on Suboxone to get off heroin. He was referred to a clinic for Suboxone treatment after discharge. As the patient continued to have pain he was given 10 oxycodone for pain control until his wound drain comes out. He will follow-up with Dr. Antunez in 1 week for drain removal. Patient was deemed appropriate for discharge and discharged home. Prior to discharge patient had a repeat CT of the left arm. There was no residual abscess or fluid collection. Status at Discharge Cognitive/behavioral status at discharge: oriented Functional status at discharge: independent ambulation Overall status at discharge: patient is not back to baseline Time Spent with Patient Time spent: Less than 30 minutes Exam Vital Signs (past 8 hours): Oxygen Delivery Method Room Air Oxygen Flow Rate 0 Narrative Exam Narrative: Disheveled ill-appearing male Lungs: Clear to auscultation Cardiac exam: Regular rate and rhythm normal S1-S2 Abdomen: Soft and nontender Left arm: Sutures in place in the antecubital fossa, drain in place with minimal drainage noted Objective Labs Result Diagrams: 09/24/20 05:05 09/23/20 04:50 Labs: Laboratory Results - last 24 hr 09/24/20 09/24/20 05:05 05:05 WBC 12.8 H RBC 4.47 L Hgb 12.6 L Hct 37.8 L MCV 84.6 MCH 28.2 MCHC 33.4 RDW 14.9 H Plt Count 676 H Neut % (Auto) 65.9 Lymph % (Auto) 24.2 L [place] % (Auto) 6.0 Eos % (Auto) 2.6 Baso % (Auto) 1.3 Neut # (Auto) 8500 H Lymph # (Auto) 3100 [place] # (Auto) 800 Eos # (Auto) 300 Baso # (Auto) 200 H Procalcitonin 3.23 H [facility] Medical History (Updated 09/22/20 @ 03:26 by Beata Oconnor MD) Atrial fibrillation IV drug abuse MRSA exposure Family History Father No significant medical problems Mother No significant medical problems Grandfather Cancer Grandfather Cancer Social History household members: family Smoking Status: Current every day smoker Discharge Assessment & Plan Assessment and Plan Assessment: 1. Left arm abscess, status post I&D of an antecubital fossa abscess 2. History of intravenous drug use 3. Severe protein calorie malnutrition 4. Nicotine dependence 5. History of paroxysmal atrial fibrillation Plan of Treatment: Antibiotic and pain medication Follow-up with Dr. Antunez in 1 week for drain removal Daily dressing change Discharge Plan Discharge Plan Patient Disposition: Home Discharge orders & Medications Prescriptions: New amoxicillin-pot clavulanate [Augmentin] 875-125 mg Tablet 1 tab PO BID 5 Days Qty: 10 RF: 0 oxycodone 5 mg Tablet 15 mg PO Q4HR PRN (Reason: Pain, Severe (7-10)) 5 Days RF: 0 No Action No Known Home Medications RF: 0 Follow up/Referrals: Scottie Almanza MD [Primary Care Provider] - Beata Oconnor MD [Physician] - (Please call [facility] and make a follow up appointment to see Dr. Oconnor the first week of October) Discharge Health Status Multidrug resistant organism: No MDRO Diet/Activity/Treatments Diet: Diet as Tolerated Activity: as tolerated Other treatments: dressing changes daily Skin/Wound/Dressing Care Report to your healthcare provider any signs of infection, such as:: chills, fever Dressing: Change dressing as needed with dry gauze and kerlix. Other wound treatment: follow up with Dr. Antunez in one week for drain removal Visit Report/Discharge Packet Instructions: DI for Francisco-Olvera Drains, DI for Incision and Drainage of a Skin Abscess, DI for Prescription Opioid Use, How to Use Antibiotics Wisely Stand Alone Forms: Surgery Discharge Discharge Data Primary Care Provider: Scottie Almanza Quality VTE Deep Vein Thrombosis/Pulmonary Embolism Present on Admission: No
== END 2020-09-24 13:30 | disposition home or self-care (01) | DRG 364 ==
LOC: ED 19:58 → AC 22:41
PROVIDERS: Internal Medicine; Surgery; Admitting Provider Nurse Practitioner Adult Health; Emergency Provider Emergency Medicine; Family Provider Family Medicine; PCP Family Medicine; Referring Provider Emergency Medicine; Visit Provider Nurse Practitioner Adult Health
PROC: 0J9H0ZZ Drainage of Left Lower Arm Subcutaneous Tissue and Fascia, Open Approach (ICD-10-PCS; principal; 2020-09-19 15:45)
PROC: 0JBF0ZZ Excision of Left Upper Arm Subcutaneous Tissue and Fascia, Open Approach (ICD-10-PCS; principal; 2020-09-21 14:45)
DX: L03.114 Cellulitis of left upper limb (principal); E43 Unspecified severe protein-calorie malnutrition; I48.0 Paroxysmal atrial fibrillation; F11.10 Opioid abuse, uncomplicated; F15.10 Other stimulant abuse, uncomplicated; Z68.1 Body mass index [BMI] 19.9 or less, adult; F17.210 Nicotine dependence, cigarettes, uncomplicated; L02.414 Cutaneous abscess of left upper limb; Z11.59 Encounter for screening for other viral diseases; Z20.818 Contact with and (suspected) exposure to other bacterial communicable diseases
CPT/HCPCS: 10060; 11042; 36415; 73201; 80048; 80053; 80202; 83036; 83735; 84145; 85025; 87040; 87070; 87075; 87076; 87077; 87147; 87186; 87205; 87635; 87797; 96365; 96366; 96375; 96376; 97110; 97161; 97165; 99252; 99284; C9290; J1170; J1644; J1885; J2060; J2250; J2405; J2543; J2704; J3010; Q9967

== ENCOUNTER 2020-11-22 13:21 | Emergency (ER) | payer OTHER, MEDICAID, SELFPAY ==
[2020-09-19 00:45] VITALS: BMI 20.2
[2020-11-22 13:22] VITALS: BP 130/91; PULSE 78; RESP 14; TEMP 36.1; O2SAT 99; BMI 27.1
--- NOTE | 2020-11-22 13:43 | PC.NURSE ---
Patient presents with bilateral arm pain, numbness and tingling. Difficulty sleeping at night due to pain in arms. Has had for several months only getting worse. Pain worse with gripping hand and repetitive motions.
--- NOTE | 2020-11-22 14:03 | ED_ITS ---
HPI - Extremity Problem <Demond BritoZULMA Riddle - Last Filed: 11/22/20 16:20> General Chief complaint: Extremity Problem,Nontraumatic Stated complaint: Arms Going Numb and Pain Whenever Laying Down Time Seen by Provider: 11/22/20 13:25 Source: patient Mode of arrival: Ambulatory Limitations: no limitations History of Present Illness HPI Narrative: This is a 24 year male, smoker, who has past medical history of IV drug use who has been sober for a few months and abscess on left upper extremity with surgical treatment presents to ED with nontraumatic bilateral hand pain and numbness radiating up to elbow level which is worse in right side which is dominant hand. He reports at times pain is more prominent either ulna and radial aspect depends on the movements such as wrist flexion. Patient reports this has been going on for couple of years but noticed worsening of symptoms for last 2 months. 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 Patient reports hands, wrists, forearm feels tight at times but no obvious swelling to see. Last could not sleep at all due to severe pain. Pain worsens with flexion of arm during sleep and feels improved when he keeps straighten his arm above the upper legs during at rest. He also felt improvement with using wrist splint in the past. Patient denies fever, chills, nausea, vomiting, redness to affected hands. Patient is currently taking Suboxone to help with substance abuse. Does not have PCP. Related Data Previous Rx's Medication Instructions Recorded prednisone 50 mg PO DAILY 5 Days #5 tab 11/22/20 Allergies Allergy/AdvReac Type Severity Reaction Status Date / Time No Known Drug Allergies Allergy Verified 11/22/20 13:28 Review of Systems <Demond HollisZULMA chin - Last Filed: 11/22/20 16:20> Review of Systems Narrative: General: Denies fever, chills, fatigue, malaise, sweats. Respiratory: Denies dyspnea, cough, wheezing, hemoptysis, sputum. Cardiovascular: Denies chest pain, palpitations, orthopnea, edema. Gastrointestinal: Denies nausea, vomiting, abdominal pain, diarrhea, constipation, melena. Musculoskeletal: See HPI Skin: Denies rash, skin lesions, or other. Neurologic: Denies weakness, headache, (+) bilteral hand numbness worse in right, change in speech, confusion, seizures, incoordination. Psychiatric: No concerning psychosocial issues. Patient History <ZULMA Gonzalez - Last Filed: 11/22/20 16:20> Medical History Atrial fibrillation IV drug abuse MRSA exposure Family History Father No significant medical problems Mother No significant medical problems Grandfather Cancer Grandfather Cancer Social History household members: family Smoking Status: Current every day smoker Smoking Status: Current every day smoker tobacco type: cigarettes and vaping alcohol intake frequency: 0-2 drinks per day Substance Use Type: former substance user and IV drugs Exam <ZULMA Gonzalez - Last Filed: 11/22/20 16:20> Narrative Exam Narrative: General appearance: well developed, well nourished, in no acute distress. Head: normocephalic, atraumatic, no scalp lesions, non-tender. ENT: Hearing grossly intact. Nose without bleeding, purulent discharge, septal hematoma or deviation. Turbinate without erythema or swelling. Facial sinuses nontender to palpate. Mucous membrane moist, no mucosal lesion. Throat without erythema, tonsillar hypertrophy or exudate. Uvula in midline, airway patent. Neck/Thyroid: neck supple, full range of motion, no visible masses or meningeal signs. No JVD, non-tender without lymphadenopathy. Skin: no suspicious rashes, lesions over visible areas. Warm and dry and appr opriate color for ethnicity. Heart: no clubbing, no cyanosis, no edema. S1 and S2 normal. RRR w/o murmurs, clicks, or bruits. Lungs: Breathing even and unlabored. No stridor. No accessory muscles used. Able to speak in full sentences. Chest: normal shape and expansion. Abdomen: non-obese, non-distended. Neurologic: alert and oriented. Cognitive exam, GEOPHYSICAL LABORATORY DIRECTOR and PNS grossly intact on informal exam. Psych: good eye contact, normal affect. Initial Vital Signs Initial Vital Signs: Vital Signs Temperature 97.0 F L 11/22/20 13:22 Pulse Rate 78 11/22/20 13:22 Respiratory Rate 14 11/22/20 13:22 Blood Pressure 130/91 H 11/22/20 13:22 Pulse Oximetry 99 11/22/20 13:22 Extrem General: normal to inspection, full ROM, capillary refill normal, no joint enlargement and no clubbing, cyanosis or edema Right upper extremity: elbow/forearm Details: normal to inspection and normal ROM; no tenderness, no swelling, no abrasions and no lacerations, wrist Details: normal to inspection, tenderness Location: of the distal radius, normal ROM (but reports discomfort with flexion), other (Difficulty differentiating sharp and dull sensation), normal vascular exam, radial pulse present and Tinel's negative; no swelling, no unusual warmth and Phalen's positive and hand Details: normal to inspection Left upper extremity: normal to inspection, full ROM, elbow/forearm Details: normal to inspection and normal ROM; no tenderness and no swelling, wrist Details: normal to inspection, normal ROM, normal vascular exam and radial pulse present; no swelling and no deformity and hand Details: normal to inspection and normal ROM of fingers <Munir Sarmiento DO - Last Filed: 11/22/20 19:42> Initial Vital Signs Initial Vital Signs: Vital Signs Temperature 97.0 F L 11/22/20 13:22 Pulse Rate 78 11/22/20 13:22 Respiratory Rate 14 11/22/20 13:22 Blood Pressure 130/91 H 11/22/20 13:22 Pulse Oximetry 99 11/22/20 13:22 Scores <ZULMA Gonzalez - Last Filed: 11/22/20 16:20> GCS Aiken coma scale eye opening: Spontaneous Luke coma scale verbal response: Orientated Luke coma scale motor response: Obey commands Luke coma scale total score: 15 Course <ZULMA Gonzalez - Last Filed: 11/22/20 16:20> Vital Signs Vital signs: Vital Signs - 8 hr 11/22/20 13:22 Temperature 97.0 F L Pulse Rate 78 Respiratory Rate 14 Blood Pressure 130/91 H Pulse Oximetry 99 <Munir Sarmiento DO - Last Filed: 11/22/20 19:42> Vital Signs Vital signs: Vital Signs - 8 hr 11/22/20 13:22 Temperature 97.0 F L Pulse Rate 78 Respiratory Rate 14 Blood Pressure 130/91 H Pulse Oximetry 99 [facility] - Extremity (Nontraumatic) <ZULMA Gonzalez - Last Filed: 11/22/20 16:20> Differential Diagnosis Differential diagnosis: Likely gout, cellulitis and other (ulanar neuropathy, radial neuropathy, carpal tunnel syndrome) Medical Records Attestation: I reviewed the patient's medical records. [facility] Narrative Medical decision making narrative: This is a 24-year-old male who presents to ED with nontraumatic bilateral hand pain radiating up to elbow for last couple of years which became worse last 2 months with flexion of wrist motion and during sleep when his arms are flexed. Physical exam is not consistent with cellulitis. Patient had good radial pulse and brisk cap refill bilaterally. Patient had positive phalen's test but negative Tinnels. Patient had slight decrease sensation and difficulty distinguishing sharp versus dull sensation in right distal hand. It is likely patient has compressed nerve or inflammation of radial and ulnar nerve worse on right-side upper extremity. Patient provided with George wrap to prevent excessive flexing of upper extremities during sleep with caution not to apply this to tight which could make it worse. Wrist splint provided for right hand as well. Patient started on short course of prednisone for pain management and advised to use [id number] Tylenol and or Motrin as needed for discomfort with ibuprofen/steroids medication precautions. Patient provided with [facility] orthopedist contact information to follow-up and further evaluation if pain persists and advised to arrange PCP. Return precautions were discussed with patient and he verbalized understanding in agreement with the treatment plan. Discharge Plan Departure Patient Disposition: Home Clinical Impression: Neuropathic pain of forearm Qualifiers: Laterality: unspecified laterality Qualified Code(s): M79.2 - Neuralgia and neuritis, unspecified Instructions: DI for Arm Pain Activity Restrictions/Additional Instructions: You have been diagnosed with [bilateral forearm pain worse in left-sided likely due to neuropathic etiology.]. What to do: *Take your medications as directed. You can take [id number] Tylenol and or Motrin as needed for discomfort. Short course of prednisone therapy for 5 days. If you take ibuprofen and steroids together, your stomach could be upset. You could take [id number] omeprazole to protect your stomach and take it with food. *Follow up with your primary care provider in 2-3 days, call for an appointment. Let them know you were seen in the ED and that we asked you to be seen in follow up. Please use George wrap during nights and velcro wrist splint as needed for discomfort. *Return to ED if you have any new, worsening, or concerning symptoms, such as [worsening pain, worsening tingling/numbness/weakness, chest pain, breathing difficulty, unable to tolerate fluids, fever or any acute concerns]. Prescriptions: New prednisone 50 mg tablet 50 mg PO DAILY 5 Days Qty: 5 RF: 0 Referrals: [facility] [Provider Group] [facility] [Outside] <Munir Sarmiento, DO - Last Filed: 11/22/20 19:42> Cosign ED Attending Coscindyature Attestation: Dr Sarmiento Co-Sign Statement: I was available for consultation during this patient's emergency department visit. This chart is signed by myself for administrative purposes only. I did not have direct contact with this patient during this visit. They were seen independently by the APC.
== END 2020-11-22 14:17 | disposition home or self-care (01) ==
PROVIDERS: Emergency Provider Nurse Practitioner Family; Family Provider Family Medicine
DX: M79.2 Neuralgia and neuritis, unspecified (principal); F19.10 Other psychoactive substance abuse, uncomplicated; I48.91 Unspecified atrial fibrillation
CPT/HCPCS: 99282

== ENCOUNTER 2021-03-25 18:30 | Emergency (ER) | payer OTHER, MEDICAID, SELFPAY ==
[2020-09-19 00:45] VITALS: BMI 20.2
[2021-03-25 19:02] VITALS: BP 129/73; PULSE 89; RESP 20; TEMP 36.7; O2SAT 97
[2021-03-25] MEDS: TRIMETH/SULFA 160/800 (DS) TABLET 1 TAB PO (22:19)
[2021-03-25 22:58] VITALS: BP 116/70; PULSE 74; RESP 14; O2SAT 100
--- NOTE | 2021-03-26 05:05 | ED.SKABFB ---
HPI - Skin/Abscess/Foreign Bdy General Chief complaint: Skin/Abscess/Foreign Body Stated complaint: Poss Staph Infection on Arms, and Neck Time Seen by Provider: 03/25/21 20:32 History of Present Illness HPI narrative: 25-year-old gentleman with a history of opioid and methamphetamine use disorder currently with a return to use but planning to get back to [facility] and [facility] which has been successful for him presents with concern for increasing lesions over his forearms and a rash over his torso. He has multiple ?picking? lesions over his forearms and a larger 1 over the nape of his neck all with minor superficial infections none with significant abscess. He reports that after injecting a couple of days ago he developed small bumps under his skin that are notable on the forearms abdomen and back. They do not itch they do not hurt. Notes that when he injected again yesterday that each of the areas became more inflamed and has since calmed again. He describes no fevers, cough, chills, palpitations, cough, lower extremity edema, abdominal pain. Related Data Home Medications Medication Instructions Recorded Confirmed buprenorphine-naloxone [Suboxone] 2 film SUBLINGUAL DAILY 03/25/21 03/25/21 Previous Rx's Medication Instructions Recorded sulfamethoxazole-trimethoprim 1 tab PO BID #14 tab 03/25/21 [Bactrim DS] Allergies Allergy/AdvReac Type Severity Reaction Status Date / Time No Known Drug Allergies Allergy Verified 03/25/21 19:06 Review of Systems Review of Systems Narrative: Remainder of complete review of systems is otherwise unremarkable except for that included in the HPI. Patient History Medical History Atrial fibrillation IV drug abuse MRSA exposure Family History Father No significant medical problems Mother No significant medical problems Grandfather Cancer Grandfather Cancer Social History household members: family Smoking Status: Current every day smoker Smoking Status: Current every day smoker tobacco type: cigarettes and vaping alcohol intake frequency: 0-2 drinks per day Substance Use Type: heroin, IV drugs and methamphetamine Exam Narrative Exam Narrative: General: Chronically appearing, in no acute distress. Able to give a complete and coherent history. HEENT: Moist mucous membranes, normal sclera with reactive pupils, multiple excoriated ?picking? lesions over his face and another area on the left posterior portion of his neck Neck: No JVD, supple Respiratory: Lungs are clear to auscultation, no wheezing no rales no rhonchi. Full and symmetrical air movement Cardiac: Regular rate and rhythm no murmurs on careful auscultation, no bruits Abdomen: Soft, nontender, good bowel tones, no flank pain Skin: Multiple areas of superficial excoriation partially infected over arms and neck. Multiple white papules that are not paretic over his abdomen and arms without excoriation or pustules. Neurologic: Grossly neurologically intact with no obvious asymmetries or abnormalities Extremities: No trauma, well perfused Psych: Cooperative, appropriate insight and affect Initial Vital Signs Initial Vital Signs: Vital Signs Temperature 98.0 F 03/25/21 19:02 Pulse Rate 89 03/25/21 19:02 Respiratory Rate 20 03/25/21 19:02 Blood Pressure 129/73 03/25/21 19:02 Pulse Oximetry 97 03/25/21 19:02 Course Orders Ordered: Discontinued Medications Trimethoprim/Sulfamethoxazole (Trimeth/Sulfa 160/800 (Ds) Tablet) 1 tab PO NOW ONE Stop: 03/25/21 22:11 Last Admin: 03/25/21 22:19 Dose: 1 tab Documented by: MEG Vital Signs Vital signs: Vital Signs - 8 hr 03/25/21 22:58 Pulse Rate 74 Respiratory Rate 14 Blood Pressure 116/70 Pulse Oximetry 100 MDM - Skin/Abscess/Foreign Bdy Medical Records Attestation: I reviewed the patient's medical records. [facility] Narrative Medical decision making narrative: 25-year-old gentleman presents with a couple of dermatologic issues. With the white papules 1st noticed after injecting 2-3 days ago not quite sure how to explain this. They are not pruritic does not appear to be lice or scabies. The fact that it became did dramatically more erythematous and then stated after the most recent injection certainly to suggests that it is drug use related. Will have him continue to observe no further treatment at this time. With the multiple excoriated areas from picking due to scratching and itching from his methamphetamine use I believe he certainly would benefit from a brief course of antibiotics. We also talked about his opiate use disorder. He is planning to contact [facility] and notes that he has been successful with using Suboxone in the past. At this point he is safe for home discharge Discharge Plan Departure Patient Disposition: Home Clinical Impression: IV drug abuse, Rash Cellulitis Qualifiers: Site of cellulitis: unspecified site Qualified Code(s): L03.90 - Cellulitis, unspecified Instructions: DI for Wound Infection Activity Restrictions/Additional Instructions: Thank you for coming in today I think that a course of antibiotics will help with a number of the lesions over your arms and the back of your neck. None of these are abscesses. Doing all that you can to get back into [facility] and away from heroin and methamphetamine will do far more than anything I am able to do an helping your skin get back to healthy The rash over your abdomen and bumps over your arms does not look like an infectious something. I suspect that it is related to something that you injected. As it is not itching at this point I am going to suggest that you give it about a week and see if your body is able to clear this rash completely. There is nothing to your exam IV that is life-threatening or hospitalization at this time. If things get worse, please feel free to return to the ER. Good luck in getting your life back Prescriptions: New sulfamethoxazole-trimethoprim [Bactrim DS] 800-160 mg tablet 1 tab PO BID Qty: 14 RF: 0 No Action buprenorphine-naloxone [Suboxone] 8-2 mg film 2 film sublingual DAILY RF: 0 Referrals: Devora Medina DO [Primary Care Provider] -
== END 2021-03-25 22:59 | disposition home or self-care (01) ==
PROVIDERS: Emergency Provider Emergency Medicine; Family Provider Family Medicine; PCP Family Medicine
DX: L03.90 Cellulitis, unspecified (principal); R21 Rash and other nonspecific skin eruption; F19.10 Other psychoactive substance abuse, uncomplicated
CPT/HCPCS: 99283

== ENCOUNTER 2021-09-09 12:11 | Emergency (ER) | payer OTHER, MEDICAID, SELFPAY ==
[2020-09-19 00:45] VITALS: BMI 20.2
[2021-09-09] VITALS (8 sets, daily range): BP systolic 124–129; BP diastolic 75–88; PULSE 88–120; RESP 14–15; TEMP 36.4; O2SAT 99–100
[2021-09-09 12:58] LABS: Add Manual Diff / Slide Review NO; Basophils Absolute Auto 100 /uL (0-100); Basophils Percent Auto 0.5 % (0-2); Eosinophils Absolute Auto 100 /uL (0-450); Eosinophils Percent Auto 0.6 % (2-4); Hematocrit 43.7 % (41-53); Hemoglobin 14.7 g/dL (13.5-17.5); Lymphocytes Absolute Auto 4000 /uL (1100-4500); Lymphocytes Percent Auto 26.8 % (25-40); Mean Corpuscular HGB Conc 33.7 % (30-36); Mean Corpuscular Volume 86.1 fL (80-100); Monocytes Absolute Auto 500 /uL (0-900); Monocytes Percent Auto 3.3 % (3-14); Neutrophils Absolute Auto 10300 /uL (1500-7000); Neutrophils Percent Auto 68.8 % (50-75); Platelet Count 405 X10^3/uL (150-400); Red Blood Cell Count 5.08 X10^6/uL (4.5-5.9); White Blood Cell Count 14.9 X10^3/uL (4.5-11.0)
[2021-09-09 13:17] LABS: UR Morphine/Opiate cutoff 300 Negative (Negative); Ur Creatinine Normal (Normal); Ur Specific Gravity Normal (Normal); Urine Amphetamines Negative (Negative); Urine Barbiturates Negative (Negative); Urine Benzodiazepines Negative (Negative); Urine Cocaine Negative (Negative); Urine MDMA Negative (Negative); Urine Methadone Negative (Negative); Urine Methamphetamines Negative (Negative); Urine Oxycodone Negative (Negative); Urine Phencyclidine Negative (Negative); Urine Tetrahydrocannabinol Negative (Negative); Urine Tricyclic Antidepressant Negative (Negative); Urine pH Normal (Normal)
[2021-09-09] MEDS: SODIUM CHLORIDE 0.9% 1,000 ML 1000 ML IV (13:20)
[2021-09-09 13:38] LABS: Alanine Aminotransferase 143 IU/L (<50); Albumin 4.6 g/dL (3.5-5.0); Albumin Globulin Ratio 1.4 (1.0-2.8); Alkaline Phosphatase 42 U/L (38-126); Aspartate Aminotransferase 68 IU/L (17-59); BUN Creatinine Ratio 30.9 (6-22); Bilirubin Total 0.8 mg/dL (0.2-1.3); Bilirubin Unconjugated 0.3 mg/dL (0.0-1.1); Blood Urea Nitrogen 21 mg/dL (9-20); Carbon Dioxide 24 mmol/L (22-32); Chloride 104 mmol/L (98-107); Estimated Glomerular Filt Rate > 60.0 mL/min (>60); Globulin 3.2 g/dL (1.7-4.1); Glucose 124 mg/dL (70-100); Lipase 389 U/L (23-300); Sodium 138 mmol/L (137-145); Total Protein 7.8 g/dL (6.3-8.2)
[2021-09-09 13:39] LABS: Acetaminophen < 10 ug/mL (10-30); Ethanol (ETOH) < 10 mg/dL; HEMOLYSIS 113 (0-50); Salicylate < 1.0 mg/dL (<20)
[2021-09-09 13:40] LABS: Potassium 4.4 mmol/L (3.4-5.1)
[2021-09-09 13:44] LABS: COVID19 -Nasal RAPID Negative (Negative)
--- NOTE | 2021-09-09 13:56 | DI.RAD.S_ITS ---
PROCEDURE: XR CHEST 2V INDICATIONS: Dizziness TECHNIQUE: 2 views of the chest were acquired. COMPARISON: None. FINDINGS: Surgical changes and devices: None. Lungs and pleura: Lungs are clear. No pleural effusions or pneumothorax. Mediastinum: Mediastinal contours are normal. Heart size is normal. Bones and chest wall: No suspicious bony abnormalities. Soft tissues appear unremarkable. IMPRESSION: No evidence acute pulmonary process. Dictated by: Pranay Yanes M.D. on 09/09/2021 at 14:29 Approved by: Pranay Yanes M.D. on 09/09/2021 at 14:31
[2021-09-09 14:07] LABS: TSH w/ Reflex to FT4 1.76 uIU/mL (0.47-4.68)
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
--- NOTE | 2021-09-09 14:59 | CM.SWNOTE ---
FEATHER MIXER Assessment Note FEATHER MIXER receives consult to meet with patient. Patient is 25 y/o male who presents to the ED with concern for dizziness. 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 Patient endorses that he has been able to maintain sobriety for the last month because he works 7 days a week 4AM-7PM working for the [employer] doing [employer]. Patient endorses that he works, sleeps and stays at home to maintain sobriety. Patient endorses he has been struggling with drug use since the age of 11. Patient endorses he went to [facility] three weeks ago. Patient endorses he has the goal of going to inpatient treatment because he wants to maintain his sobriety. Patient endorses the [facility] counselor met with him on my worst day and he did not get to plan for the goal of inpatient. Patient endorses he has a history of going to inpatient treatment 4 times before for 30 day stays. Patient endorses he often relapses in the summer when he surrounds himself with the wrong crowd of people. Patient endorses he occasionally drives whiskey. FEATHER MIXER provides patient with [facility] facilities for patient to obtain assessment and seek recommended treatment services. Patient endorses he has sober supports and resides with family. Patient endorses that due to his schedule he is not able to attend NA meetings but is aware of such meetings. Plan: Patient to d/c to home when medically clear, patient to f/u with [facility] facilities to seek assessment. SRINIVASA Holder
--- NOTE | 2021-09-09 15:20 | PC.NURSE ---
Patient is mildly tachycardic at 110bpm, presumably from her fever. I attempted to give her 800mg ibuprofen to treat both fever/tachycardia and her headache. She refused it and states she does not want ibuprofen or tylenol. States I took some yesterday and it only worked for like an hour.
[2021-09-09] MEDS: TRIMETH/SULFA 160/800 (DS) TABLET 1 TAB PO (15:27)
[2021-09-09 17:06] LABS: HIV 1 & 2 Ab/Ag 4th Gen Combo NEGATIVE (NEGATIVE)
== END 2021-09-09 15:32 | disposition home or self-care (01) ==
PROVIDERS: Emergency Medicine; Emergency Provider Student in an Organized Health Care Education/Training Program; Family Provider Family Medicine; PCP Family Medicine
DX: R42 Dizziness and giddiness (principal); Z20.822 Contact with and (suspected) exposure to COVID-19; B18.2 Chronic viral hepatitis C
CPT/HCPCS: 36415; 71046; 80048; 80076; 80305; 80320; 80329; 81003; 83690; 84443; 85025; 87389; 87635; 93005; 93010; 96360; 99284; C9803; G0480

== ENCOUNTER 2022-01-08 02:38 | Inpatient (IN) | payer OTHER, MEDICAID, SELFPAY ==
[2020-09-19 00:45] VITALS: BMI 20.2
[2022-01-08] VITALS (26 sets, daily range): BP systolic 95–155; BP diastolic 42–81; PULSE 61–114; RESP 11–113; TEMP 36.2–38.3; O2SAT 90–100; BMI 27.8
--- NOTE | 2022-01-08 | PATH_ITS ---
[facility] Accession Number: [id number] . 01 Material submitted: . gallbladder - GALLBLADDER . 02 Diagnosis: Gallbladder, Open Cholecystectomy: Acute and chronic cholecystitis. Perforation present at gross examination; cannot completely exclude diverticulitis. MRV 01/14/2022 1307 Local . 02 Electronically signed: . Vibha Jarrell MD, Pathologist NPI- [id number] . 01 Gross description: . The specimen is received in formalin labeled with the patient's name and gallbladder. It is composed of an enlarged disrupted gallbladder which measures 13.0 x 6.0 x 4.0 cm. The serosal surface is marsh-white to marsh-brown. It is focally covered by adipose tissue and shows focal hemorrhagic discoloration. There is a defect present, which measures 7.0 x 3.0 cm. The possible cystic duct margin is identified and measures 0.3 cm in diameter. The gallbladder is completely opened to reveal a diffusely hemorrhagic uneven mucosa. The mucosa shows hemorrhagic material adherent in the lumen interspersed with flecks of yellowish material likely representing exudate. A definite polyp or a discrete solid mass is not identified. The wall is 0.6 cm in thickness and shows areas of yellowish discoloration, likely representing exudate. Areas of outpouching of the mucosa into the wall are noted. Detail Assembler sections are submitted as follows: . A1 - Cystic duct margin en face, inked green. A2-A4 - Sections of the hemorrhagic mucosa with outpouching into the wall. A5 - Relatively smoother but hemorrhagic mucosa. ([id number]) /[facility] 01/10/2022 1817 Local . 02 Pathologist provided ICD-10: K81.0 . 02 CPT . 374832 Specimen Comment: A courtesy copy of this report has been sent to [phone] Performed at: 01 [facility] Cytology [address] [place] [address], [place], [place] [id number] MD Vidal Hurst MD Phone: [phone] Performed at: 02 [facility] [address] [place], [place] [id number] MD Olga Pereira MD Phone: [phone]
--- NOTE | 2022-01-08 02:47 | ED.ABDPAIN ---
HPI - Abdominal Pain General Chief Complaint: Abdominal Pain Stated Complaint: gall bladder inflammed Time Seen by Provider: 01/08/22 02:40 History of Present Illness HPI narrative: 26-year-old male smoker with remote history of IV drug abuse presents with a chief complaint of worsening epigastric and right upper quadrant pain over the past 24 hours. He states it is worse when he eats or drinks as well as movement. It improves wall resting. He has had multiple episodes of vomiting. He denies any fever but has had chills. He does have a reported known history of a ?bad gallbladder ?and was evaluated an outside facility about 2 months ago. He denies runny nose, sore throat or cough. He has had no chest pain or shortness of breath. Related Data Allergies Allergy/AdvReac Type Severity Reaction Status Date / Time No Known Drug Allergies Allergy Verified 01/08/22 03:01 Review of Systems Review of Systems Narrative: GENERAL: See HPI HEENT: Denies sinus pain, ear pain, sore throat, difficulty swallowing, dizziness. RESPIRATORY: Denies dyspnea, cough, wheezing, hemoptysis, sputum. CARDIOVASCULAR: Denies chest pain, palpitations, orthopnea, edema, GASTROINTESTINAL: See HPI : Denies dysuria, frequency, incontinence, hematuria, urinary retention. MUSCULOSKELETAL: denies weakness, joint pain, or bony pain SKIN: Denies rash, skin lesions, or other NEUROLOGIC: Denies weakness, headache, numbness, change in speech, confusion, seizures, incoordination. PSYCHIATRIC: No concerning psychosocial issues. 12 point review of systems is negative except for those stated above Patient History Social History Smoking Status: Current every day smoker Exam Narrative Exam Narrative: GENERAL: [26 year old patient appears stated age. Well-developed patient, in mild distress. Obviously uncomfortable, holding an emesis bag HEAD: Atraumatic. Normocephalic. EYES: Pupils equal round and reactive. Extraocular motions intact. No scleral icterus. No injection or drainage. ENT: Nose without bleeding, purulent drainage. Throat without erythema, tonsillar hypertrophy or exudate. Airway patent. NECK: Trachea midline. Non tender CARDIOVASCULAR: Regular rate and rhythm without murmurs, gallops, or rubs. RESPIRATORY: Clear to auscultation. Breath sounds equal bilaterally. No wheezes, rales, or rhonchi. GASTROINTESTINAL: Abdomen soft, significant tenderness in the epigastrium nondistended. EXTREMITIES: No edema or joint tenderness. BACK: Nontender without deformity or crepitance. No flank tenderness. NEURO: AOx3. SKIN: No rash or erythema of visible areas Initial Vital Signs Initial Vital Signs: Vital Signs Temperature 98.5 F 01/08/22 02:45 Pulse Rate 102 H 01/08/22 02:45 Respiratory Rate 21 01/08/22 02:45 Blood Pressure 134/81 01/08/22 02:45 Pulse Oximetry 99 01/08/22 02:45 Course Orders Ordered: ED Orders 01/08/22 03:06 US abdomen limited Stat 01/08/22 03:42 Complete Blood Count AUTO DIFF Stat Comprehensive Metabolic Panel Stat Lipase Stat Magnesium Stat 01/08/22 04:55 COVID19 -Nasal swab/Pre-Proc Stat Discontinued Medications Hydromorphone HCl (Hydromorphone 0.5 Mg Inj) 0.5 mg IV NOW ONE Stop: 01/08/22 04:41 Last Admin: 01/08/22 04:53 Dose: 0.5 mg Documented by: SANTO Sodium Chloride (Normal Saline 0.9%) 1,000 mls @ 1,000 mls/hr IV BOLUS ONE Stop: 01/08/22 04:04 Last Admin: 01/08/22 03:48 Dose: 1,000 mls/hr Documented by: ASNTO Piperacillin Sod/Tazobactam (Sod 4.5 gm/ Sodium Chloride) 100 mls @ 200 mls/hr IV NOW ONE Stop: 01/08/22 04:31 Ondansetron HCl (Ondansetron 4 Mg/2 Ml Inj) 4 mg IV NOW ONE Stop: 01/08/22 03:06 Last Admin: 01/08/22 03:48 Dose: 4 mg Documented by: SANTO Reevaluation(s) Reevaluation #1: Improved pain and nausea after above-stated therapies Consultations Consultation #1: Discussed with on-call surgeon (Dr. Adan), he is happy to admit patient to his service for likely surgical intervention later in the day Vital Signs Vital signs: Vital Signs - 8 hr 01/08/22 02:45 01/08/22 02:54 01/08/22 03:00 Temperature 98.5 F Pulse Rate 102 H 101 H 98 H Respiratory Rate 21 Blood Pressure 134/81 Pulse Oximetry 99 99 100 01/08/22 03:53 01/08/22 04:00 01/08/22 04:30 Temperature Pulse Rate 107 H 105 H 110 H Respiratory Rate Blood Pressure Pulse Oximetry 98 98 96 MDM - Abdominal Pain Lab Data Result diagrams: 01/08/22 03:42 01/08/22 03:42 Labs: Lab Results 01/08/22 01/08/22 Range/Units 03:42 03:42 WBC 8.8 (4.5-11.0) X10^3/uL RBC 5.37 (4.5-5.9) X10^6/uL Hgb 16.1 (13.5-17.5) g/dL Hct 48.7 (41-53) % MCV 90.7 (80-100) fL MCH 29.9 (26-34) PG MCHC 33.0 (30-36) % RDW 13.9 (11.6-14.8) % Plt Count 314 (150-400) X10^3/uL Neut % (Auto) 75.9 H (50-75) % Lymph % (Auto) 16.4 L (25-40) % Sanders % (Auto) 7.1 (3-14) % Eos % (Auto) 0.2 L (2-4) % Baso % (Auto) 0.4 (0-2) % Neut # (Auto) 6700 (3949-9363) /uL Lymph # (Auto) 1400 (1818-6903) /uL Sanders # (Auto) 600 (0-900) /uL Eos # (Auto) 0 (0-450) /uL Baso # (Auto) 0 (0-100) /uL Sodium 137 (137-145) mmol/L Potassium 4.4 (3.4-5.1) mmol/L Chloride 104 (98-107) mmol/L Carbon Dioxide 26 (22-32) mmol/L BUN 18 (9-20) mg/dL Creatinine 0.88 (0.66-1.25) mg/dL Estimated GFR > 60.0 (>60) mL/min BUN/Creatinine Ratio 20.5 (6-22) Glucose 124 H (70-100) mg/dL Calcium 8.9 (8.4-10.2) mg/dL Magnesium 1.8 (1.6-2.3) mg/dL Total Bilirubin 1.4 H (0.2-1.3) mg/dL AST 77 H (17-59) IU/L ALT 110 H (<50) IU/L Alkaline Phosphatase 36 L (38-126) U/L Total Protein 8.1 (6.3-8.2) g/dL Albumin 4.2 (3.5-5.0) g/dL Globulin 3.9 (1.7-4.1) g/dL Albumin/Globulin Ratio 1.1 (1.0-2.8) Lipase 56 (23-300) U/L Point of care testing: Urine Dip Bedside Urine Glucose Negative Bedside Urine Bilirubin - Negative Bedside Urine Ketone +/- 5 Urine Specific [place] 1.030 Bedside Urine Occult Blood - Negative Bedside Urine pH 6.0 Bedside Urine Protein +/- 15 Bedside Urine Urobilinogen - Negative Bedside Urine Nitrite - Negative Bedside Urine Leukocytes - Negative Esterase Imaging Data US - abdomen: Radiologist's Impression: Gallbladder hydrops, measuring 9 cm. Gallbladder wall thickening, cholelithiasis, positive sonographic Wood sign. 1.4 cm nonmobile stone within neck of gallbladder. Common bile duct is normal in diameter. Discharge Plan Departure Patient Disposition: Admitted As Inpatient Clinical Impression: Cholelithiasis and acute cholecystitis with obstruction Admit Date/Time: 01/08/22 04:35 Admit Provider: Fer Adan
--- NOTE | 2022-01-08 03:06 | DI.US.S_ITS ---
PROCEDURE: US ABDOMEN LIMITED INDICATIONS: severe epigastric and RUQ pain, known GB disease TECHNIQUE: Real-time focused scanning was performed of the abdomen, with image documentation. COMPARISON: None. FINDINGS: Gallbladder is distended measuring 9.0 centimeters in long axis. Multiple gallstones identified. Largest stone measures 1.4 centimeters in and is lodged in the neck. Gallbladder wall is thickened to 11.0 millimeters. Positive sonographic Wood sign noted. Biliary tree is nondilated. Common bile duct measures 4.7 centimeters. Pancreas not visualized due to bowel gas and cannot be evaluated. IMPRESSION: Acute cholecystitis. Dictated by: Vale Nice MD, PhD on 01/08/2022 at 8:13 Approved by: Vale Nice MD, PhD on 01/08/2022 at 8:14
[2022-01-08] MEDS: ONDANSETRON 4 MG/2 ML INJ IV (03:48)
[2022-01-08] MEDS: SODIUM CHLORIDE 0.9% 1,000 ML 1000 ML IV (03:48)
[2022-01-08 03:51] LABS: Add Manual Diff / Slide Review NO; Basophils Absolute Auto 0 /uL (0-100); Basophils Percent Auto 0.4 % (0-2); Eosinophils Absolute Auto 0 /uL (0-450); Eosinophils Percent Auto 0.2 % (2-4); Hematocrit 48.7 % (41-53); Hemoglobin 16.1 g/dL (13.5-17.5); Lymphocytes Absolute Auto 1400 /uL (1100-4500); Lymphocytes Percent Auto 16.4 % (25-40); Mean Corpuscular Hemoglobin 29.9 PG (26-34); Mean Corpuscular Volume 90.7 fL (80-100); Monocytes Absolute Auto 600 /uL (0-900); Monocytes Percent Auto 7.1 % (3-14); Neutrophils Absolute Auto 6700 /uL (1500-7000); Neutrophils Percent Auto 75.9 % (50-75); Platelet Count 314 X10^3/uL (150-400); Red Blood Cell Count 5.37 X10^6/uL (4.5-5.9); Red Cell Distribution Width 13.9 % (11.6-14.8); White Blood Cell Count 8.8 X10^3/uL (4.5-11.0)
[2022-01-08 04:21] LABS: Alanine Aminotransferase 110 IU/L (<50); Albumin 4.2 g/dL (3.5-5.0); Albumin Globulin Ratio 1.1 (1.0-2.8); Alkaline Phosphatase 36 U/L (38-126); Aspartate Aminotransferase 77 IU/L (17-59); BUN Creatinine Ratio 20.5 (6-22); Bilirubin Total 1.4 mg/dL (0.2-1.3); Blood Urea Nitrogen 18 mg/dL (9-20); Calcium 8.9 mg/dL (8.4-10.2); Carbon Dioxide 26 mmol/L (22-32); Chloride 104 mmol/L (98-107); Estimated Glomerular Filt Rate > 60.0 mL/min (>60); Globulin 3.9 g/dL (1.7-4.1); Glucose 124 mg/dL (70-100); HEMOLYSIS 65 (0-50); Lipase 56 U/L (23-300); Magnesium 1.8 mg/dL (1.6-2.3); Sodium 137 mmol/L (137-145); Total Protein 8.1 g/dL (6.3-8.2)
[2022-01-08 04:22] LABS: Potassium 4.4 mmol/L (3.4-5.1)
[2022-01-08] MEDS: HYDROMORPHONE 0.5 MG INJ IV ×3 (04:53→13:38)
[2022-01-08 05:16] LABS: Appearance Urine UA CLEAR; Bilirubin Urine UA NEGATIVE (NEGATIVE); Color Urine UA YELLOW; Glucose Urine UA NEGATIVE (Negative); Ketones Urine UA TRACE (NEGATIVE); Leukocyte Esterase Urine UA NEGATIVE (NEGATIVE); Nitrite Urine UA NEGATIVE (Negative); Occult Blood Urine UA TRACE-LYSED (Negative); Protein Urine UA TRACE (Negative); Specific Gravity Urine UA 1.025 (1.000-1.035); Urobilinogen Urine UA 0.2 E.U./dL (0.2)
[2022-01-08 05:18] LABS: COVID19 -Nasal RAPID Negative (Negative)
[2022-01-08 05:31] LABS: Amorphous Sediment Urine 1+; Bacteria Urine Few (2-10); RBC Urine 0-1/HPF (0-5/HPF); Squamous Epithelial Cell Urine 0-1 /HPF (0-5/HPF); WBC Urine None Seen (0-5/HPF)
[2022-01-08 05:32] LABS: Culture Indicated Urine Cult Not Indicated; Mucus Urine 3+ (Negative)
[2022-01-08] MEDS: SODIUM CHLORIDE 0.9% 1,000 ML 125 ML IV (06:26)
[2022-01-08] MEDS: PIPERACILLIN/TAZO 4.5 GM in SODIUM CHLORIDE 0.9% 100 ML 200 ML IV (06:32)
[2022-01-08] MEDS: ACETAMINOPHEN 325 MG TABLET 650 MG PO ×4 (07:36→18:03)
--- NOTE | 2022-01-08 07:42 | PC.NURSE ---
Patient arrived to AC unit at 0515, alert and oriented x 4. Patient oriented to room and shown how to use call light. NS running at 125, Zosyn administered. Tele #7 placed on patient, ICU notified. Breaks on bed are locked and bed in low position.
--- NOTE | 2022-01-08 07:45 | P.HP_ITS ---
History of Present Illness History of Present Illness Date Patient Seen: 01/08/22 Time Patient Seen: 07:45 Chief complaint: gall bladder inflammed Narrative: 26 y.o man admitted for acute cholecystitits. Developed epigastric pain with associated nausea and vomiting x 1 day. He has had previous episodes of right upper quadrant pain associated with meals. At admission afebrile, WBC 9, Total Bilirubin 1.4, AST 80, ALT 110, Lipase normal. Abdominal ultrasound demonstrates 1.5 cm stone lodged in the neck of the gallbladder with associated gallbladder wall thickening 9mm and hydrops. Received Zosyn at admission Past history of substance abuse Patient History Family & Social History Social History: household members family Prior Living Arrangements House Safety & Behavioral: Feels Safe in Current Yes Environment Been Physically Hurt or No Threatened By a Person Suicidal Ideation Description None Suicide Plan Description No Plan Tobacco & Substance use: Tobacco type cigarettes Smoking Status Current every day smoker alcohol intake frequency 0-2 drinks per day Substance Use Type does not use Meds Home Medications and Allergies Home Medications Medication Instructions Recorded Confirmed Type No Known Home Medications 01/08/22 01/08/22 History Allergies Allergy/AdvReac Type Severity Reaction Status Date / Time No Known Drug Allergies Allergy Verified 01/08/22 03:01 Exam Vital Signs (past 8 hours): - 01/08/22 02:45 01/08/22 02:54 01/08/22 03:00 Temperature 98.5 F Pulse Rate 102 H 101 H 98 H Respiratory Rate 21 Blood Pressure 134/81 Pulse Oximetry 99 99 100 01/08/22 03:53 01/08/22 04:00 01/08/22 04:30 Temperature Pulse Rate 107 H 105 H 110 H Respiratory Rate Blood Pressure Pulse Oximetry 98 98 96 01/08/22 05:06 01/08/22 05:15 Temperature 100.1 F H Pulse Rate 114 H Respiratory Rate 19 Blood Pressure 155/74 H Pulse Oximetry 90 L 97 Oxygen Delivery Method Room Air Oxygen Flow Rate 97 Narrative Exam Narrative: GENERAL: Adult male in no apparent distress HEENT: No scleral icterus CV: Regular rate, no peripheral edema LUNGS: No increased work of breathing. Patient speaks in full sentences without oxygen support. ABDOMEN: Positive Wood sign. NEURO: Nonfocal, normal strength throughout, normal gait. SKIN: Warm and dry Objective Labs Result Diagrams: 01/08/22 03:42 01/08/22 03:42 Labs: Laboratory Results - last 24 hr 01/08/22 01/08/22 01/08/22 03:42 03:42 04:12 WBC 8.8 RBC 5.37 Hgb 16.1 Hct 48.7 MCV 90.7 MCH 29.9 MCHC 33.0 RDW 13.9 Plt Count 314 Neut % (Auto) 75.9 H Lymph % (Auto) 16.4 L [place] % (Auto) 7.1 Eos % (Auto) 0.2 L Baso % (Auto) 0.4 Neut # (Auto) 6700 Lymph # (Auto) 1400 [place] # (Auto) 600 Eos # (Auto) 0 Baso # (Auto) 0 Sodium 137 Potassium 4.4 Chloride 104 Carbon Dioxide 26 BUN 18 Creatinine 0.88 Estimated GFR > 60.0 BUN/Creatinine Ratio 20.5 Glucose 124 H Calcium 8.9 Magnesium 1.8 Total Bilirubin 1.4 H AST 77 H ALT 110 H Alkaline Phosphatase 36 L Total Protein 8.1 Albumin 4.2 Globulin 3.9 Albumin/Globulin Ratio 1.1 Lipase 56 Urine Color Yellow Urine Appearance Clear Urine pH 5.0 Ur Specific [place] 1.025 Urine Protein Trace H Urine Glucose (UA) Negative Urine Ketones Trace H Urine Occult Blood Trace-lysed Urine Nitrate Negative Urine Bilirubin Negative Urine Urobilinogen 0.2 Ur Leukocyte Esterase Negative Urine RBC 0-1/hpf Urine WBC None seen Ur Squamous Epith Cells 0-1 /hpf Amorphous Sediment 1+ Urine Bacteria Few (2-10) H Urine Mucus 3+ H Ur Culture Indicated? Cult not indicated SARS-CoV-2 (PCR) 01/08/22 04:55 WBC RBC Hgb Hct MCV MCH MCHC RDW Plt Count Neut % (Auto) Lymph % (Auto) [place] % (Auto) Eos % (Auto) Baso % (Auto) Neut # (Auto) Lymph # (Auto) [place] # (Auto) Eos # (Auto) Baso # (Auto) Sodium Potassium Chloride Carbon Dioxide BUN Creatinine Estimated GFR BUN/Creatinine Ratio Glucose Calcium Magnesium Total Bilirubin AST ALT Alkaline Phosphatase Total Protein Albumin Globulin Albumin/Globulin Ratio Lipase Urine Color Urine Appearance Urine pH Ur Specific [place] Urine Protein Urine Glucose (UA) Urine Ketones Urine Occult Blood Urine Nitrate Urine Bilirubin Urine Urobilinogen Ur Leukocyte Esterase Urine RBC Urine WBC Ur Squamous Epith Cells Amorphous Sediment Urine Bacteria Urine Mucus Ur Culture Indicated? SARS-CoV-2 (PCR) Negative Assessment & Plan Assessment and plan (1) Cholelithiasis and acute cholecystitis with obstruction: Status: Acute Assessment & Plan narrative: 26-year-old male with acute cholecystitis. Labs and imaging reviewed are consistent with acute cholecystitis there is a large stone lodged within the neck of the gallbladder and associated hydrops. Recommended that we proceed with an laparoscopic cholecystectomy. Technical details of the procedure were discussed. Operative risks including bleeding, infection, damage to surrounding structures including bile duct injury and leak were discussed. His questions have been answered he is in agreement with this plan. Time Spent With Patient Critical Care time: I spent a total of [] minutes of critical care time on this patient's care today; this time is exclusive of procedural time. Quality VTE Deep Vein Thrombosis/Pulmonary Embolism Present on Admission: No
[2022-01-08] MEDS: LACTATED RINGERS 1,000 ML 42 ML IV ×2 (08:18→09:35)
[2022-01-08] MEDS: SCOPOLAMINE 1 PATCH TOP (09:16)
[2022-01-08] MEDS: GABAPENTIN 300 MG CAPSULE PO (09:16)
--- NOTE | 2022-01-08 09:58 | SUR.OPER ---
Supine on padded OR bed, head on pillow, Right arm on armboard padded and secured, Left arm tucked at side with gel, legs uncrossed, safety belt at thigh, tape over blanket over lower legs .
[2022-01-08] MEDS: BUPIVACAINE 0.25% (PF) VIAL 30 ML INJ (10:35)
--- NOTE | 2022-01-08 11:11 | CM.DANOTE ---
DCP: Case received. Unable to meet with patient, he is down in surgery, and uncertain if he will return from PACU. Completed DCP assessment based upon information currently available. Patient is a 26 year old male who admitted early this morning to the care of the hospitalist/surgical team. PCP: Unknown. Payer: confirmed: [employer]etr/Medicaid. Patient came to the hospital via air lift, secondary to having increased abdominal pain, as well as nausea and vomiting for the last day. Ultrasound noted 1.5 cm stone lodged in the neck of the gallbladder. Patient having surgery today. Patient holds current diagnosis of acute cholecystitis. Patient also has history of IV drug abuse. Was not able to meet with patient, he was taken down to surgery. He may not return from PACU, possibly can discharge from there. According to notes, patient resides with family. His mother, Aliza, is on contact list. It is unknown as to who or if patient has a primary care provider. P: DCP to continue to follow, and see if he comes back upstairs, or remains in PACU. Patient should be able to go home when he is deemed medically stable. Paz Jackson RN/Larriman Helper Discharge Planning/Care Management CM Discharge Assessment Start: 01/08/22 11:10 Freq: Status: Active Protocol: Document 01/08/22 11:10 (Rec: 01/08/22 11:11 [id number]) Discharge Planning Assessment Assigned Wharf Tally Clerk Paz Jackson RN/Larriman Helper Advance Directives? No History Provided By Patient,Medical Record Prior Living Arrangements House Household Members family Type of transporation used prior to Drives own vehicle admit Independent with ADL's Yes Is patient alert and oriented? Yes Caregiver for Another No Discharge Plan Home Transportation Arrangement Family or friend Referrals Initiated None needed Review Status In Process Next Review Type Continued Stay Review
--- NOTE | 2022-01-08 11:24 | P.OP_ITS ---
Operative Date/Time/Diagnoses Date of procedure: 01/08/22 Time of procedure: 11:24 Pre-op diagnosis: Acute cholecystitis Post-op diagnosis: other (Gangrenous cholecystitis) Procedure & Clinicians Procedure: Open cholecystectomy Same procedure as scheduled: Yes Indications: 26-year-old male with acute cholecystitis. Ultrasound demonstrates a 1/2 cm stone lodged within the neck of the gallbladder wall thickening to 9 mm and hydrops. Surgeon: Fer Adan Anesthesia Type: General Operative Notes Findings: Gangrenous cholecystitis. Purulent peritonitis upon entry to the abdomen. Specimen(s): other (Gallbladder) Estimated Blood Loss (mL): 150 Procedure in detail: Patient was brought to the operating room placed supine on the table. Zosyn was administered. He was prepped and draped in sterile fashion after he was intubated with an endotracheal tube. An infraumbilical incision was made the fascia was grasped elevated sharply incised the abdomen was entered atraumatically. There was a spontaneous drainage of purulence peritonitis through the port. The pneumoperitoneum was established the scope was then pl aced into the abdomen there was no evidence of injury there was at least 500 mL of purulence within the abdomen and particular the right upper quadrant. The gallbladder was unable to be visualized given the amount of inflammation. The 10 mm port was then placed high into the epigastric region as well as a 5 mm port into the right upper quadrant. Despite attempts to break up the loculations and moved the inherent transverse colon off of the liver the gallbladder was still unable to be visualized. I had the operation was converted to open. A subcostal incision was made the subcutaneous tissue was divided muscles were divided with electrocautery and the abdomen was entered. Bookwalter was placed for retraction. There was necrotic omentum from the transverse colon overlaying the gallbadder and this was removed with the ligature. The gallbladder was identified it was tense and gangrenous. A cholesytostomy was made and there was spontaneous drainage of a large volume of purulent fluid. The gallbladder was then dissected off of the liver in a top- down fashion. A portion of the back wall was left on the liver. There was a stone that was lodged within the neck of the gallbladder and this was removed. At the hepatocystic triangle the peritoneum was skeletonized and this revealed 2 ductal structures clearly entering the gallbladder. The cystic duct and cystic artery were ligated with hemo lock clips twice on the stay side once on the specimen side. The cystic duct and cystic artery were then divided sharply. The abdomen was then copiously irrigated with several L of saline until the lavage return clear. A 19 Taiwanese Arpan drain was then placed into the right upper quadrant in the gallbladder fossa. The abdominal wall fascia was then closed in 2 layers with 1. PDS suture. Subcutaneous space was closed with Vicryl suture skin closed with chely. The inferior epigastric fascial incision was closed with the Vicryl suture. Patient tolerated the operation well was transferred to recovery in stable condition. Complications: none Post-operative Condition: stable Disposition: Acute Care
--- NOTE | 2022-01-08 11:39 | SUR.PHASEI ---
01/[id number] off to Pinky SNIDER in pacu.Care transfered.
[2022-01-08] MEDS: OXYCODONE IR 5 MG TABLET PO ×2 (12:29→13:00)
--- NOTE | 2022-01-08 12:42 | SUR.PHASEI ---
Called floor to give report. Nurse will call back.
--- NOTE | 2022-01-08 13:01 | SUR.PHASEI ---
1255 Attempted to call report. Nurse still unable to take report. Remedicated for pain.
--- NOTE | 2022-01-08 13:22 | SUR.PHASEI ---
1323 - Called report to [facility]
[2022-01-08] MEDS: LACTATED RINGERS 1,000 ML 120 ML IV ×2 (13:37→22:14)
[2022-01-08] MEDS: NICOTINE 14 PATCH 14 MG TOP (13:51)
[2022-01-08 13:56] LABS: Add Manual Diff / Slide Review NO; Basophils Absolute Auto 0 /uL (0-100); Basophils Percent Auto 0.2 % (0-2); Eosinophils Absolute Auto 0 /uL (0-450); Hematocrit 39.5 % (41-53); Hemoglobin 13.5 g/dL (13.5-17.5); Lymphocytes Absolute Auto 1200 /uL (1100-4500); Lymphocytes Percent Auto 9.4 % (25-40); Mean Corpuscular HGB Conc 34.1 % (30-36); Monocytes Absolute Auto 600 /uL (0-900); Monocytes Percent Auto 4.8 % (3-14); Neutrophils Absolute Auto 11000 /uL (1500-7000); Neutrophils Percent Auto 85.6 % (50-75); Platelet Count 309 X10^3/uL (150-400); Red Blood Cell Count 4.49 X10^6/uL (4.5-5.9); Red Cell Distribution Width 13.9 % (11.6-14.8); White Blood Cell Count 12.8 X10^3/uL (4.5-11.0)
[2022-01-08 14:04] LABS: Alanine Aminotransferase 138 IU/L (<50); Albumin 3.6 g/dL (3.5-5.0); Albumin Globulin Ratio 1.1 (1.0-2.8); Alkaline Phosphatase 45 U/L (38-126); Aspartate Aminotransferase 139 IU/L (17-59); BUN Creatinine Ratio 18.3 (6-22); Bilirubin Total 2.3 mg/dL (0.2-1.3); Blood Urea Nitrogen 19 mg/dL (9-20); Calcium 7.7 mg/dL (8.4-10.2); Carbon Dioxide 27 mmol/L (22-32); Chloride 105 mmol/L (98-107); Estimated Glomerular Filt Rate > 60.0 mL/min (>60); Globulin 3.2 g/dL (1.7-4.1); Glucose 147 mg/dL (70-100); HEMOLYSIS < 15 (0-50); Potassium 5.1 mmol/L (3.4-5.1); Sodium 136 mmol/L (137-145); Total Protein 6.8 g/dL (6.3-8.2)
[2022-01-08] MEDS: HYDROMORPHONE 0.5 MG INJ 1 MG IV ×3 (15:40→22:33)
[2022-01-08] MEDS: KETOROLAC 30 MG/ML VIAL IV ×2 (16:27→22:18)
[2022-01-08] MEDS: CYCLOBENZAPRINE 10 MG TABLET PO (22:17)
[2022-01-09] MEDS: ACETAMINOPHEN 325 MG TABLET 650 MG PO ×4 (00:18→18:03)
[2022-01-09] MEDS: HYDROMORPHONE 0.5 MG INJ 1 MG IV ×3 (00:46→11:03)
--- NOTE | 2022-01-09 01:08 | PC.NURSE ---
A&OX4 able to make needs known. RA 95-97% LS CTA, IS taught and encouraged . physical assesment WNL except RUQ lap to added open erica with SAMARA drain, sites is oozing serous fluid, drain sponge added.
[2022-01-09 04:00] VITALS: BP 97/50; PULSE 67; RESP 18; TEMP 36.3; O2SAT 95
[2022-01-09] MEDS: KETOROLAC 30 MG/ML VIAL IV ×3 (04:19→20:35)
[2022-01-09] MEDS: LACTATED RINGERS 1,000 ML 120 ML IV (06:36)
[2022-01-09 08:07] VITALS: BP 103/58; PULSE 61; RESP 14; TEMP 36.6; O2SAT 96
[2022-01-09] MEDS: CYCLOBENZAPRINE 10 MG TABLET PO ×3 (08:51→20:36)
[2022-01-09] MEDS: ENOXAPARIN 40 MG/0.4 ML SYRINGE SUBCUT (08:51)
[2022-01-09] MEDS: OXYCODONE IR 5 MG TABLET PO ×4 (08:52→20:36)
[2022-01-09] MEDS: NICOTINE 14 PATCH 14 MG TOP (08:52)
--- NOTE | 2022-01-09 09:04 | PM.PNPO.1 ---
Subjective Subjective Date Patient Seen: 01/09/22 Time Patient Seen: 09:04 Interval history: no acute overnight issues. Tolerating clear liquid diet. Has ambulated. Exam Vital Signs (past 8 hours): - 01/09/22 04:00 Temperature 97.3 F L Pulse Rate 67 Respiratory Rate 18 Blood Pressure 97/50 L Pulse Oximetry 95 Oxygen Delivery Method Room Air Oxygen Flow Rate 0 Narrative Exam Narrative: General adult male alert oriented no acute distress Abdomen soft appropriately tender to palpation. Dressing clean dry intact subcostal. Drain serosanguineous no bile Objective Labs Result Diagrams: 01/08/22 13:45 01/08/22 13:45 Labs: Laboratory Results - last 24 hr 01/08/22 01/08/22 13:45 13:45 WBC 12.8 H RBC 4.49 L Hgb 13.5 Hct 39.5 L MCV 88.0 MCH 30.0 MCHC 34.1 RDW 13.9 Plt Count 309 Neut % (Auto) 85.6 H Lymph % (Auto) 9.4 L [place] % (Auto) 4.8 Eos % (Auto) 0.0 L Baso % (Auto) 0.2 Neut # (Auto) 05537 H Lymph # (Auto) 1200 [place] # (Auto) 600 Eos # (Auto) 0 Baso # (Auto) 0 Sodium 136 L Potassium 5.1 Chloride 105 Carbon Dioxide 27 BUN 19 Creatinine 1.04 Estimated GFR > 60.0 BUN/Creatinine Ratio 18.3 Glucose 147 H Calcium 7.7 L Total Bilirubin 2.3 H AST 139 H ALT 138 H Alkaline Phosphatase 45 Total Protein 6.8 Albumin 3.6 Globulin 3.2 Albumin/Globulin Ratio 1.1 PFSH Social History household members: family Smoking Status: Current every day smoker Assessment & Plan Post-op Postoperative Procedures: Procedures Operation Date: 01/08/22 09:15 Actual Procedure Side Surgeon p Laparoscopic Cholecystectomy converted to open Not Applicable Fer Adan MD Postoperative status narrative: 26-year-old male postoperative day 1 status post open cholecystectomy for gangrenous cholecystitis. Progressing appropriately. - Regular diet - DC IV fluids - continue Zosyn for intra-abdominal infection - SCDs and Lovenox - PT consult Quality VTE Deep Vein Thrombosis/Pulmonary Embolism Present on Admission: No
--- NOTE | 2022-01-09 11:31 | PT.IIE ---
Current Diagnoses Calculus of gallbladder with acute cholecystitis with obstruction (01/08/22) Surgery Performed Operation Date: 01/08/22 09:15 Actual Procedures p Laparoscopic Cholecystectomy converted to open(Not Applicable) - Fer Adan MD Physical Therapy Inpatient Evaluation/Re-Eval M1 PT/OT-IP Prior Functional Status Start: 01/09/22 12:47 Freq: NEEDED Status: Active Protocol: Document 01/09/22 11:31 AB (Rec: 01/09/22 13:01 [email or web address]) Medical Review Prior Functional Status Medical History Reviewed Yes Communication able to make needs known Mobility and Gait pt stated that he is indpendent witha ll mobilities and ambulation without AD Social History Household Members family Living Arrangements House Number of Floors (Floors) One Floor Number of Stairs To Enter/Railing? no steps to enter 5 steps B rails to get to bedroom level Home Environment High Toilet,Walk in Shower Home Equipment Shower Seat with Backrest,Hand Held Shower,Grab Bars In Shower Additional Social History Comment pt's father will be able to assist him M2 PT-IP Current Condition Start: 01/09/22 12:47 Freq: NEEDED Status: Active Protocol: Document 01/09/22 11:31 AB (Rec: 01/09/22 13:01 [place] [id number]) Physical Therapy Current Condition Current Condition Evaluation Date 01/09/22 Treatment Diagnosis cholelitiasis s/p cholecystectomy; difficulty in walking Onset Date 01/08/22 M3 PT-IP Subjective Start: 01/09/22 12:47 Freq: NEEDED Status: Active Protocol: Document 01/09/22 11:31 AB (Rec: 01/09/22 13:01 [facility] Subjective Physical Therapy Visit Type Type Initial Evaluation Visit Start Time 11:31 Visit Stop Time 12:15 Total Visit Minutes 44 Number of [employer] Visits 0 Physical Therapy Visit Comments Patient Comments agreeable to do PT Therapy Pain Assessment Pain When Pain Assessed At Rest Pain Present Pain Present Pain Reported Location Right upper Quadrant Intensity 5 Scale Used Numeric (0 - 10) Pain Management Techniques Distraction,Modification of Treatment,Re-positioning, Timing of Activity with Medications M4 PT-IP Mobility and Gait Start: 01/09/22 12:47 Freq: NEEDED Status: Active Protocol: Document 01/09/22 11:31 AB (Rec: 01/09/22 13:01 AB [email or web address]) PT-Bed Mobility Assessment Rolling Type of Rolling Log Rolling Level of Assist Standby Assistance Supine to Sit Supine to Sit Standby Assistance Scooting Scooting to Edge of Bed Standby Assistance PT-Transfer Assessment Sit to and From Stand Sit to and from Stand Standby Assistance,1 Person Assistance,Use of Upper Extremities Equipment Transfer Assistive Device None,Gait Belt Orthotic/Prosthetic Devices or Brace: No Transfers Transfer Destination Chair Transfer Technique ambulated Transfer Ability Level of Assist Standby Assistance,1 Person Assistance,Use of Upper Extremities Comments Mobility Comments talked with nurse and stated that pt is independent with mobility in room but with c/o pain. educated pt on abdominal precautions and log roll bed mobility. pt completed log roll supine to sit SBA with cues. pt able to follow directions. pt sat on EOB SBA . completed sit to stand SBA. unstead with initial standing but able to stabilize without AD. stated that this is due to abdominal pain and pt with initial difficutly standing upright and able to corrected posture after cues. pt ambulated ~ 250 ft without AD SBA. no LOB. completed up/ down steps using B rail SBA. ambualted back to his room. agreed to sit up on chair and positioned. call light and table within reach. informed nurse that pt is moving well and needs supervision for safety and pt agreed to ambulate with nursing later on. no further PT indicated at this time. Gait Assessment Gait Gait Assistance Required: Standby Assistance Distance (Feet) 250 Able to Maintain Weight Bearing Status Yes During Gait Assistive Devices Assistive Device None,Gait Belt Orthotic/Prosthetic Devices or Brace: No Factors Limiting Gait Function Factors Limiting Gait Function Pain Stair Climbing Assessment Evaluation Level of Assist On Stairs Standby Assistance Devices Stair Climbing Assistive Devices Left Railing,Right Railing Technique/Endurance Stair Climbing Direction Ascend and Descend Stair Climbing Technique Step Over Step Number of Steps Climbed 3 Query Text: Stair Climbing Set # Repetitions (reps) 2 PT-Balance Assessment Sitting Balance and Reactions Static Sitting Balance Ability Normal Dynamic Sitting Balance Ability Normal Standing Balance and Reactions Static Standing Balance Ability Good Dynamic Standing Balance Ability Good Device Used without AD M5 PT-IP Objective Assessments Start: 01/09/22 12:47 Freq: NEEDED Status: Active Protocol: Document 01/09/22 11:31 AB (Rec: 01/09/22 13:01 [email or web address]) Orientation Orientation/Cognition Level of Alertness Alert Orientation Name,Age,Birthday,Month,Date, Year,Day of Week,Place, Situation Language Function Ability No Deficits Noted Safety Awareness Understands Safety Issues Memory Description No Deficits Noted Gross Range of Motion Lower Extremity ROM Assessment Within Functional Limits Strength Lower Extremity Strength Assessment Within Functional Limits Coordination Assessment Gross Coordination Gross Coordination WNL Sensation Assessment Sensation Gross Sensation WNL Muscle Tone Muscle Tone WNL Yes M6 PT-IP Treatment Start: 01/09/22 12:47 Freq: NEEDED Status: Active Protocol: Document 01/09/22 11:31 AB (Rec: 01/09/22 13:01 [email or web address]) Physical Therapy Treatment Education Education Provided Precautions,Weight Bearing Status,Post-Op Packet,Safety M7 PT-IP Assessment and Plan Start: 01/09/22 12:47 Freq: NEEDED Status: Active Protocol: Document 01/09/22 11:31 AB (Rec: 01/09/22 13:01 [email or web address]) PT Summary Assessment and Plan Potential Rehabilitation Potential Good Status of Condition at Evaluation Stable Summary Impairments Pain,ROM,Strength,Balance, Coordination,Sensation,Tone, Bed Mobility,Transfers,Gait, Activity Tolerance Assessment Summary PT eval completed. Pt requiring SBa for safety and able to ambulate without AD. No LOB and able to complete stairs SBA. pt plans to go home with his father to assist him. No further PT intervention indicated at this time. Frequency of Treatment Frequency Of Treatment Discharge Precautions Abdominal Surgery Precautions Log Roll,Lifting Restrictions, Gait Belt above Incisional Area Recommendations To Nursing Amount of Assist Needed Standby Assistance Discharge Recommendations PT Discharge Recommendations Home with Assistance Transportation Needs at Discharge Private Vehicle
--- NOTE | 2022-01-09 11:49 | PC.NURSE ---
Addendum entered by Melanie Mensah R.N. 01/09/22 13:32: Patient reports drastic improvement in pain, does not believe he will need IV pain medication at any point from here on out. Would like to discharge if at all possible later today. Plan is to administer Oxy 5mg to avoid breakthrough pain. Patient reports cough has lessened with ambulation, encouraged patient to continue ambulating and splinting as necessary. Original Note: Patient was given PO pain medication earlier this morning, was able to nap but now reports intense pain 8-910, is requesting Dilaudid IV, encouraged patient to stick to PO medications but patient is adamant he can not tolerate his increasing coughs, he reports he is unable to take deep breaths and feels the pain is deep. Patient is diaphoretic, wincing with movement and with coughs, attempting to splint without relief.
[2022-01-09 12:15] VITALS: BP 100/67; PULSE 94; RESP 16; TEMP 36.7; O2SAT 94
[2022-01-09] MEDS: PIPERACILLIN/TAZO 3.375 GM in SODIUM CHLORIDE 0.9% 100 ML 25 ML IV (18:03)
[2022-01-09 20:30] VITALS: BP 106/54; PULSE 64; RESP 16; TEMP 37.2; O2SAT 95
[2022-01-10] MEDS: NICOTINE 14 PATCH 14 MG TOP ×2 (00:03→08:17)
[2022-01-10] MEDS: PIPERACILLIN/TAZO 3.375 GM in SODIUM CHLORIDE 0.9% 100 ML 25 ML IV ×3 (00:04→15:38)
[2022-01-10] MEDS: OXYCODONE IR 5 MG TABLET PO ×5 (00:05→20:55)
[2022-01-10] MEDS: ACETAMINOPHEN 325 MG TABLET 650 MG PO ×4 (00:05→18:05)
[2022-01-10 00:15] VITALS: BP 106/59; PULSE 67; RESP 18; TEMP 36.9; O2SAT 96
[2022-01-10 06:30] VITALS: BP 112/63; PULSE 65; RESP 14; TEMP 36.6; O2SAT 98
--- NOTE | 2022-01-10 06:55 | PC.NURSE ---
pt c/o of itching to abdominal dressing. pt was medicated and dressing change performed. Skin cleansed with chlorhexedine scrubs and dressing reapplied. pt Denied c/o pain through procedure.
[2022-01-10 07:26] LABS: Add Manual Diff / Slide Review NO; Basophils Absolute Auto 0 /uL (0-100); Basophils Percent Auto 0.3 % (0-2); Eosinophils Absolute Auto 100 /uL (0-450); Eosinophils Percent Auto 0.7 % (2-4); Hematocrit 37.8 % (41-53); Hemoglobin 12.4 g/dL (13.5-17.5); Lymphocytes Absolute Auto 4000 /uL (1100-4500); Lymphocytes Percent Auto 23.7 % (25-40); Mean Corpuscular HGB Conc 32.9 % (30-36); Mean Corpuscular Hemoglobin 29.5 PG (26-34); Mean Corpuscular Volume 89.7 fL (80-100); Monocytes Absolute Auto 900 /uL (0-900); Monocytes Percent Auto 5.1 % (3-14); Neutrophils Absolute Auto 11800 /uL (1500-7000); Neutrophils Percent Auto 70.2 % (50-75); Platelet Count 351 X10^3/uL (150-400); Red Blood Cell Count 4.21 X10^6/uL (4.5-5.9); White Blood Cell Count 16.8 X10^3/uL (4.5-11.0)
[2022-01-10 07:38] LABS: Alanine Aminotransferase 88 IU/L (<50); Albumin 3.1 g/dL (3.5-5.0); Alkaline Phosphatase 47 U/L (38-126); Aspartate Aminotransferase 52 IU/L (17-59); BUN Creatinine Ratio 21.7 (6-22); Bilirubin Total 0.4 mg/dL (0.2-1.3); Blood Urea Nitrogen 20 mg/dL (9-20); Calcium 8.1 mg/dL (8.4-10.2); Carbon Dioxide 29 mmol/L (22-32); Chloride 107 mmol/L (98-107); Estimated Glomerular Filt Rate > 60.0 mL/min (>60); Globulin 3.1 g/dL (1.7-4.1); Glucose 111 mg/dL (70-100); HEMOLYSIS < 15 (0-50); Sodium 140 mmol/L (137-145); Total Protein 6.2 g/dL (6.3-8.2)
[2022-01-10] MEDS: ENOXAPARIN 40 MG/0.4 ML SYRINGE SUBCUT (08:16)
[2022-01-10] MEDS: CYCLOBENZAPRINE 10 MG TABLET PO ×3 (08:17→20:55)
[2022-01-10] MEDS: KETOROLAC 30 MG/ML VIAL IV ×3 (08:18→20:56)
[2022-01-10 08:34] VITALS: BP 119/58; PULSE 66; RESP 14; TEMP 36.7; O2SAT 94
[2022-01-10 12:35] VITALS: BP 119/72; PULSE 65; RESP 16; TEMP 36.6; O2SAT 96
--- NOTE | 2022-01-10 13:43 | P.PN_ITS ---
Subjective Subjective Date Patient Seen: 01/10/22 Time Patient Seen: 13:45 Interval history: No overnight events. Pain well controlled tolerated regular food. Exam Vital Signs (past 8 hours): - 01/10/22 06:30 01/10/22 08:34 Temperature 97.8 F 98.1 F Pulse Rate 65 66 Respiratory Rate 14 14 Blood Pressure 112/63 119/58 L Pulse Oximetry 98 94 Oxygen Delivery Method Room Air Oxygen Flow Rate 0 Narrative Exam Narrative: General adult male alert oriented no acute distress Abdomen soft appropriately tender to palpation.? Dressing clean dry intact subcostal.? Drain serosanguineous no bile Objective Labs Result Diagrams: 01/10/22 06:10 01/10/22 06:10 Labs: Laboratory Results - last 24 hr 01/10/22 01/10/22 06:10 06:10 WBC 16.8 H RBC 4.21 L Hgb 12.4 L Hct 37.8 L MCV 89.7 MCH 29.5 MCHC 32.9 RDW 14.0 Plt Count 351 Neut % (Auto) 70.2 Lymph % (Auto) 23.7 L [place] % (Auto) 5.1 Eos % (Auto) 0.7 L Baso % (Auto) 0.3 Neut # (Auto) 67253 H Lymph # (Auto) 4000 [place] # (Auto) 900 Eos # (Auto) 100 Baso # (Auto) 0 Sodium 140 Potassium 4.0 Chloride 107 Carbon Dioxide 29 BUN 20 Creatinine 0.92 Estimated GFR > 60.0 BUN/Creatinine Ratio 21.7 Glucose 111 H Calcium 8.1 L Total Bilirubin 0.4 AST 52 ALT 88 H Alkaline Phosphatase 47 Total Protein 6.2 L Albumin 3.1 L Globulin 3.1 Albumin/Globulin Ratio 1.0 PFSH Social History household members: family Smoking Status: Current every day smoker Assessment & Plan Post-op Postoperative Procedures: Procedures Operation Date: 01/08/22 09:15 Actual Procedure Side Surgeon p Laparoscopic Cholecystectomy converted to open Not Applicable Fer Adan MD Postoperative status narrative: 26-year-old male postoperative day 2 status post open cholecystectomy for gangrenous cholecystitis. Progressing. Clinically doing well, however WBC is trending up will monitor and continue antibiotics. - Regular diet - continue Zosyn for intra-abdominal infection - SCDs and Lovenox Quality VTE Deep Vein Thrombosis/Pulmonary Embolism Present on Admission: No
[2022-01-10 19:58] VITALS: BP 118/60; PULSE 74; RESP 16; TEMP 36.6; O2SAT 95
[2022-01-11] MEDS: ACETAMINOPHEN 325 MG TABLET 650 MG PO (00:19)
[2022-01-11] MEDS: PIPERACILLIN/TAZO 3.375 GM in SODIUM CHLORIDE 0.9% 100 ML 25 ML IV ×2 (00:20→08:40)
[2022-01-11] MEDS: KETOROLAC 30 MG/ML VIAL IV ×2 (03:05→08:42)
[2022-01-11] MEDS: OXYCODONE IR 5 MG TABLET PO (03:05)
[2022-01-11 05:59] VITALS: BP 123/74; PULSE 51; RESP 16; TEMP 36.4; O2SAT 97
[2022-01-11 06:17] LABS: Add Manual Diff / Slide Review NO; Basophils Absolute Auto 100 /uL (0-100); Basophils Percent Auto 0.6 % (0-2); Eosinophils Absolute Auto 300 /uL (0-450); Eosinophils Percent Auto 2.7 % (2-4); Hematocrit 40.2 % (41-53); Hemoglobin 13.7 g/dL (13.5-17.5); Lymphocytes Absolute Auto 3500 /uL (1100-4500); Lymphocytes Percent Auto 32.8 % (25-40); Mean Corpuscular Hemoglobin 29.8 PG (26-34); Mean Corpuscular Volume 87.7 fL (80-100); Monocytes Absolute Auto 800 /uL (0-900); Monocytes Percent Auto 7.2 % (3-14); Neutrophils Absolute Auto 6000 /uL (1500-7000); Neutrophils Percent Auto 56.7 % (50-75); Platelet Count 406 X10^3/uL (150-400); Red Blood Cell Count 4.58 X10^6/uL (4.5-5.9); Red Cell Distribution Width 14.1 % (11.6-14.8); White Blood Cell Count 10.6 X10^3/uL (4.5-11.0)
[2022-01-11 06:20] LABS: Alanine Aminotransferase 73 IU/L (<50); Albumin 3.1 g/dL (3.5-5.0); Alkaline Phosphatase 38 U/L (38-126); Aspartate Aminotransferase 41 IU/L (17-59); BUN Creatinine Ratio 19.5 (6-22); Bilirubin Total 0.3 mg/dL (0.2-1.3); Blood Urea Nitrogen 16 mg/dL (9-20); Calcium 8.3 mg/dL (8.4-10.2); Carbon Dioxide 28 mmol/L (22-32); Chloride 107 mmol/L (98-107); Estimated Glomerular Filt Rate > 60.0 mL/min (>60); Globulin 3.2 g/dL (1.7-4.1); Glucose 108 mg/dL (70-100); HEMOLYSIS < 15 (0-50); Potassium 3.9 mmol/L (3.4-5.1); Sodium 138 mmol/L (137-145); Total Protein 6.3 g/dL (6.3-8.2)
[2022-01-11 08:28] VITALS: BP 118/74; PULSE 72; RESP 16; TEMP 36.2; O2SAT 95
[2022-01-11] MEDS: CYCLOBENZAPRINE 10 MG TABLET PO (08:41)
[2022-01-11] MEDS: ENOXAPARIN 40 MG/0.4 ML SYRINGE SUBCUT (08:41)
[2022-01-11] MEDS: NICOTINE 14 PATCH 14 MG TOP (08:42)
--- NOTE | 2022-01-11 09:58 | P.DS_ITS ---
History of Present Illness History of Present Illness Date Patient Seen: 01/11/22 Time Patient Seen: 13:20 Chief complaint: gall bladder inflammed Narrative: 26 y.o man admitted for acute cholecystitits. Developed epigastric pain with associated nausea and vomiting x 1 day. He has had previous episodes of right upper quadrant pain associated with meals. At admission afebrile, WBC 9, Total Bilirubin 1.4, AST 80, ALT 110, Lipase normal. Abdominal ultrasound demonstrates 1.5 cm stone lodged in the neck of the gallbladder with associated gallbladder wall thickening 9mm and hydrops. Received Zosyn at admission Past history of substance abuse Discharge Providers Provider Date of admission: 01/08/22 04:35 Discharge Date: 01/11/22 Consults: 01/09/22 09:03 Consult to Physical Therapy Evaluate & Treat Comment: Physician Instructions: Evaluate and Treat Discharge provider: Fer Adan MD Summary Hospital Course Discharge Diagnosis: Gangrenous cholecystitis Peritonitis Hospital Course: Patient was taken to the operating room for a cholecystectomy. He was found to have gangrenous cholecystitis and anna marie purulent peritonitis. Procedure was converted to open. He remained hospitalized for 3 days postoperatively. He received Zosyn for intra-abdominal infection. At discharge leukocytosis has resolved he is tolerating a regular diet the intra-abdominal drain been removed he is afebrile his pain is well controlled with oral medication. He will disch arge home and will complete a 1 week course of Augmentin. Status at Discharge Cognitive/behavioral status at discharge: oriented Exam Vital Signs (past 8 hours): - 01/11/22 05:59 01/11/22 08:28 Temperature 97.5 F L 97.2 F L Pulse Rate 51 L 72 Respiratory Rate 16 16 Blood Pressure 123/74 118/74 Pulse Oximetry 97 95 Oxygen Delivery Method Room Air Oxygen Flow Rate 0 Narrative Exam Narrative: General adult male alert oriented no acute distress Chest nonlabored respirations Abdomen soft appropriately tender to palpation. Subcostal incision right clean dry intact with chely. Objective Labs Result Diagrams: 01/11/22 05:40 01/11/22 05:40 Labs: Laboratory Results - last 24 hr 01/11/22 01/11/22 05:40 05:40 WBC 10.6 RBC 4.58 Hgb 13.7 Hct 40.2 L MCV 87.7 MCH 29.8 MCHC 34.0 RDW 14.1 Plt Count 406 H Neut % (Auto) 56.7 Lymph % (Auto) 32.8 [place] % (Auto) 7.2 Eos % (Auto) 2.7 Baso % (Auto) 0.6 Neut # (Auto) 6000 Lymph # (Auto) 3500 [place] # (Auto) 800 Eos # (Auto) 300 Baso # (Auto) 100 Sodium 138 Potassium 3.9 Chloride 107 Carbon Dioxide 28 BUN 16 Creatinine 0.82 Estimated GFR > 60.0 BUN/Creatinine Ratio 19.5 Glucose 108 H Calcium 8.3 L Total Bilirubin 0.3 AST 41 ALT 73 H Alkaline Phosphatase 38 Total Protein 6.3 Albumin 3.1 L Globulin 3.2 Albumin/Globulin Ratio 1.0 PFSH Social History household members: family Smoking Status: Current every day smoker Discharge Plan Discharge Plan Patient Disposition: Home Provider Discharge Comment: -Okay to shower -Do not submerge wounds in water until seen in follow-up. -No lifting >20 lbs x 4 weeks. -Walking only for exercise for 4 weeks. -No driving while taking narcotics. Discharge orders & Medications Prescriptions: New ibuprofen 200 mg tablet 400 mg PO Q6H Qty: 60 0RF docusate sodium [Colace] 100 mg capsule 100 mg PO BID Qty: 30 0RF amoxicillin-pot clavulanate [Augmentin] 875-125 mg tablet 1 tab PO BID Qty: 14 0RF oxycodone 5 mg tablet See Rx Instructions .ROUTE .COMPLEX PRN (Reason: pain) Qty: 30 0RF Rx Instructions: 1-2 tabs every 6 hrs as needed for pain acetaminophen [Tylenol] 325 mg capsule 650 mg PO QID PRN (Reason: pain) Qty: 60 0RF Medication counseling provided by Pharmacist: Yes Follow up/Referrals: Fer Adan MD [Physician] - 01/23/22 (Staple removal) Diet/Activity/Treatments Diet: Diet as Tolerated Skin/Wound/Dressing Care Report to your healthcare provider any signs of infection, such as:: chills, fever, increased pain, unusual drainage and unusual redness Visit Report/Discharge Packet Instructions: DI for Open Cholecystectomy, DI for Prescription Opioid Use, [facility]: Wound Care Discharge Data Attending Provider: Antionette,Fer Quality VTE Deep Vein Thrombosis/Pulmonary Embolism Present on Admission: No
--- NOTE | 2022-01-15 23:43 | PC.NURSE ---
NS infusion was stopped @ 0500 01/08/22
== END 2022-01-11 12:00 | disposition home or self-care (01) | DRG 262 ==
LOC: ED 03:02 → AC 05:16
PROVIDERS: Admitting Provider Surgery; Emergency Provider Emergency Medicine; Referring Provider Emergency Medicine; Visit Provider Surgery
PROC: 0FT44ZZ Resection of Gallbladder, Percutaneous Endoscopic Approach (ICD-10-PCS; CPT 47562; principal; 2022-01-08 09:15)
DX: K80.01 Calculus of gallbladder with acute cholecystitis with obstruction (principal); K55.049 Acute infarction of large intestine, extent unspecified; K82.A1 Gangrene of gallbladder in cholecystitis; K82.1 Hydrops of gallbladder; K65.0 Generalized (acute) peritonitis; F17.210 Nicotine dependence, cigarettes, uncomplicated; Z20.822 Contact with and (suspected) exposure to COVID-19
CPT/HCPCS: 36415; 47600; 76705; 80053; 81001; 81003; 83690; 83735; 85025; 87635; 96374; 96375; 97161; 97530; 99222; 99284; C9803; G0378; J0330; J1100; J1170; J1650; J1885; J2250; J2405; J2543; J2704

== ENCOUNTER 2022-11-10 11:28 | Emergency (ER) | payer OTHER, MEDICAID, SELFPAY ==
[2022-01-08 04:45] VITALS: BMI 27.8
[2022-11-10 11:58] VITALS: BP 133/78; PULSE 81; RESP 18; TEMP 36.6; O2SAT 99; BMI 29.2
[2022-11-10] MEDS: KETOROLAC 30 MG/ML VIAL IM (17:09)
--- NOTE | 2022-11-10 19:59 | ED_ITS ---
HPI - Abdominal Pain <Kaitlyn Dudley PA-C - Last Filed: 11/10/22 20:06> General Chief Complaint: Abdominal Pain Stated Complaint: hernia started hurting at work Time Seen by Provider: 11/10/22 15:22 Source: patient Mode of arrival: Ambulatory History of Present Illness HPI narrative: 26-year-old male status post a lap erica on 01/08/2022 presents to the ED with 1 week of abdominal hernia. Patient states that 1 week ago, he started feeling a lump that pops out in the epigastric region, is painful when that happens, however he is able to reduce it and put it back in. Patient states that it has repeatedly popped out during various activities, however he has been able to reduce it successfully thus far. Patient denies fever, chills, chest pain, shortness of breath, vomiting, dysuria, constipation, diarrhea, lightheadedness, dizziness, syncope. Patient endorses sporadic nausea, especially when his pain is worse. Related Data Home Medications Medication Instructions Recorded Confirmed buprenorphine 8 mg-naloxone 2 mg 2 film sublingual DAILY 03/25/21 01/23/22 sublingual film (Suboxone) Previous Rx's Medication Instructions Recorded acetaminophen 325 mg capsule 650 mg PO QID PRN pain #60 caps 01/10/22 (Tylenol) docusate sodium 100 mg capsule 100 mg PO BID #30 caps 01/10/22 (Colace) ibuprofen 200 mg tablet 400 mg PO Q6H #60 tabs 01/10/22 Allergies Allergy/AdvReac Type Severity Reaction Status Date / Time No Known Drug Allergies Allergy Verified 11/10/22 11:57 Review of Systems <Kaitlyn Dudley PA-C - Last Filed: 11/10/22 20:06> Review of Systems ROS Unobtainable: All systems reviewed & are unremarkable except as noted in HPI and below Constitutional Constitutional: Denies chills, Denies fatigue, Denies fever(s), Denies frequent falls, Denies lethargy and Denies weakness Eyes Eyes: Denies change in vision, Denies eye discharge, Denies irritation and Denies loss of vision ENT Ears, Nose, Mouth, and Throat: Denies change in voice, Denies dizziness, Denies neck pain, Denies sore throat and Denies throat swelling Cardiovascular Cardiovascular: Denies chest pain, Denies irregular heart rhythm, Denies lightheadedness, Denies palpitations, Denies dyspnea, Denies dyspnea on exertion and Denies orthopnea Respiratory Respiratory: Denies cough, Denies dyspnea, Denies dyspnea on exertion and Denies wheezing Gastrointestinal Gastrointestinal: Reports abdominal pain, Denies change in bowel habits, Denies diarrhea, Reports nausea and Denies vomiting Comments: Hernia Genitourinary Genitourinary: Denies hematuria, Denies flank pain, Denies urinary incontinence and Denies urinary urgency Musculoskeletal Musculoskeletal: Denies back pain, Denies muscle weakness, Denies neck pain, Denies numbness and Denies tingling Integumentary/Breasts Skin/Breast: Denies pruritus, Denies erythema, Denies rash and Denies wounds Neurologic Neurologic: Denies behavioral changes, Denies confusion, Denies dizziness, Denies frequent falls, Denies loss of vision, Denies numbness, Denies tingling and Denies weakness Psychiatric Psychiatric: Denies anxiety, Denies behavioral changes, Denies confusion, Denies depression, Denies homicidal ideation and Denies suicidal ideation Endocrine Endocrine: Denies fatigue, Denies flushing and Denies palpitations Hematologic/Lymphatic Hematologic/Lymphatic: Denies easy bruising Allergic/Immunologic Allergic/Immunologic: Denies urticaria, Denies throat swelling and Denies whe ezing Patient History <Kaitlyn Dudley PA-C - Last Filed: 11/10/22 20:06> Medical History Atrial fibrillation IV drug abuse MRSA exposure Family History Father No significant medical problems Mother No significant medical problems Grandfather Cancer Grandfather Cancer Social History household members: family Smoking Status: Current every day smoker Smoking Status: Current every day smoker tobacco type: cigarettes and vaping alcohol intake frequency: holidays/special occasions only Substance Use Type: does not use and former substance user Exam <Kaitlyn Dudley PA-C - Last Filed: 11/10/22 20:06> Narrative Exam Narrative: Const General:?cooperative, healthy appearing and comfortable HENMT Head:?normal to inspection Ears:?hearing grossly normal bilaterally Nose:?external nose normal Face and sinus:?normal facial exam and sinuses nontender Mouth:?oral mucosae normal Throat:?posterior oropharynx normal Eyes General:?appearance normal, both eyes and all related structures Neck Neck:?normal visual inspection and no lymphadenopathy noted Resp Effort & Inspection:?normal respiratory effort Auscultation:?clear to auscultation bilaterally Cardio Rate:?regular rate Rhythm:?regular rhythm GI Abdomen is soft, nondistended, non tender to palpation. No CVA tenderness. Neuro General:?patient alert, patient awake and patient oriented x3 Initial Vital Signs Initial Vital Signs: Vital Signs Temperature 97.9 F 11/10/22 11:58 Pulse Rate 81 11/10/22 11:58 Respiratory Rate 18 11/10/22 11:58 Blood Pressure 133/78 11/10/22 11:58 Pulse Oximetry 99 11/10/22 11:58 Oxygen Delivery Method 11/10/22 11:58 <Violeta Sethi DO - Last Filed: 11/13/22 07:56> Initial Vital Signs Initial Vital Signs: Vital Signs Temperature 97.9 F 11/10/22 11:58 Pulse Rate 81 11/10/22 11:58 Respiratory Rate 18 11/10/22 11:58 Blood Pressure 133/78 11/10/22 11:58 Pulse Oximetry 99 11/10/22 11:58 Oxygen Delivery Method 11/10/22 11:58 Course <Kaitlyn Dudley PA-C - Last Filed: 11/10/22 20:06> Orders Ordered: Discontinued Medications Ketorolac Tromethamine (Ketorolac 30 Mg/Ml Vial) 30 mg IM NOW ONE Stop: 11/10/22 16:56 Last Admin: 11/10/22 17:09 Dose: 30 mg Documented By: EDWIN <Violeta Sethi DO - Last Filed: 11/13/22 07:56> Orders Ordered: Discontinued Medications Ketorolac Tromethamine (Ketorolac 30 Mg/Ml Vial) 30 mg IM NOW ONE Stop: 11/10/22 16:56 Last Admin: 11/10/22 17:09 Dose: 30 mg Documented By: EDWIN MDM - Abdominal Pain <Kaitlyn Dudley PA-C - Last Filed: 11/10/22 20:06> MDM Narrative Medical decision making narrative: 26-year-old male status post a lap erica on 01/08/2022 presents to the ED with 1 week of abdominal hernia. Physical exam is reassuring, no palpable hernia on exam. Abdominal exam was benign. Patient appears well. Patient's symptoms likely due to a reduced hernia. Recommend care with movement and positioning to minimize the chance of the hernia popping out. Recommend consult with [facility] for further evaluation and treatment. No indication for labs, imaging at this time. ED return precautions were discussed with patient. Patient verbalized understanding ? Data collected from:? Patient ? Medical records reviewed:??Yes ? Lab Test results independently reviewed as above. Pertinent findings: ? Independently reviewed EKG as above Disposition: see below, along with detailed discharge instructions that have been reviewed with patient as well as indications for ED re-evaluation and additional outpatient follow up Discharge Plan Departure Patient Disposition: Home Clinical Impression: Abdominal pain Instructions: DI for Abdominal Pain-Adult, Abdominal Hernia Activity Restrictions/Additional Instructions: You were evaluated in the ED today for abdominal pain and hernia. In the ED, your hernia did not pop out. It is reassuring that you are able to put the hernia back if it pops out. Please be mindful of movements that exacerbate the hernia. You may take Tylenol/ibuprofen for pain. The definitive treatment for a hernia is via surgery. Please follow-up with [facility] by calling [phone] for an appointment for further evaluation. Please return to the ED if you are unable to put the hernia back, you are uncontrollably vomiting, you have worsened abdominal pain. Prescriptions: No Action buprenorphine-naloxone [Suboxone] 8-2 mg film 2 film sublingual DAILY Label Comments: dissolve 3 FILMS under the tongue once daily ibuprofen 200 mg tablet 400 mg PO Q6H Qty: 60 0RF docusate sodium [Colace] 100 mg capsule 100 mg PO BID Qty: 30 0RF acetaminophen [Tylenol] 325 mg capsule 650 mg PO QID PRN (Reason: pain) Qty: 60 0RF Referrals: Devora Medina DO [Primary Care Provider] - Stand Alone Forms: Patient Portal/API <Violeta Sethi DO - Last Filed: 11/13/22 07:56> Cosign ED Attending Risaature Attestation: I was immediately available in the department for consultation. Documentation has been reviewed. I agree with assessment and plan.
== END 2022-11-10 17:15 | disposition home or self-care (01) ==
PROVIDERS: Emergency Provider Student in an Organized Health Care Education/Training Program; Family Provider Family Medicine; PCP Family Medicine
DX: R10.13 Epigastric pain (principal)
CPT/HCPCS: 96372; 99283; J1885

== ENCOUNTER → 2022-11-25 09:14 | Outpatient (CLI) | payer OTHER, MEDICAID, SELFPAY ==
[2022-11-11 09:57] VITALS: BMI 27.8
[2022-11-25 10:43] LABS: COVID19 -Nasal RAPID Negative (Negative)
== END ==
PROVIDERS: Family Provider Family Medicine; PCP Family Medicine; Visit Provider Surgery
DX: Z20.822 Contact with and (suspected) exposure to COVID-19
CPT/HCPCS: 87635; C9803

== ENCOUNTER 2022-11-26 06:25 | Day surgery (SDC) | payer OTHER, MEDICAID, SELFPAY ==
[2022-11-11 09:57] VITALS: BMI 27.8
[2022-11-21 09:28] VITALS: BMI 29.2
[2022-11-26] VITALS (11 sets, daily range): BP systolic 112–132; BP diastolic 48–81; PULSE 79–97; RESP 12–20; TEMP 36.2–36.6; O2SAT 90–98; BMI 29.2
[2022-11-26] MEDS: LACTATED RINGERS 1,000 ML 100 ML IV ×2 (07:24→09:31)
--- NOTE | 2022-11-26 07:41 | PM.PREOP ---
Pre-operative Note Interval Note History & Physical reviewed/Exam performed by Physician: Yes Changes to H&P: No
[2022-11-26] MEDS: CEFAZOLIN 2 GM/100 ML PREMIX 100 ML IV (07:55)
[2022-11-26] MEDS: BUPIVACAINE 0.25% (PF) VIAL 30 ML INJ (08:27)
--- NOTE | 2022-11-26 08:34 | SUR.OPER ---
Supine on padded OR bed, head on pillow, arms secured on padded arm boards at <90 degrees abduction, legs uncrossed, safety belt at thigh, tape over blanket over lower legs. Gel pad under bilateral heels.
--- NOTE | 2022-11-26 09:46 | PM.OP.1 ---
Operative Date/Time/Diagnoses Date of procedure: 11/26/22 Time of procedure: 09:46 Pre-op diagnosis: Incisional hernia Post-op diagnosis: same Procedure & Clinicians Procedure: Open repair of incisional hernia greater than 4 cm Same procedure as scheduled: Yes Indications: 26-year-old male who underwent a open cholecystectomy developed an incisional hernia within the subcostal incision. He is here for an elective repair. Surgeon: Fer Adan Anesthesia Type: General Operative Notes Findings: 6 cm fascial defect containing omentum Specimen(s): none sent Estimated Blood Loss (mL): 50 Procedure in detail: Patient was brought to the operating room placed supine on the table. Bilateral lower extremity compression devices were applied. General anesthesia was induced he was intubated with a endotracheal tube. He received 2 g of Ancef prior to skin incision. He is prepped and draped in sterile fashion. Time-out was performed. The prior subcostal incision was opened. The subcutaneous tissue was divided. The external oblique was opened. Through the posterior wall of the abdomen and behind the oblique there was a 6 cm fascial defect. The sac was opened and contained omentum. The hernia sac was then closed with a running Vicryl suture. The external oblique was elevated and the fascial defect was exposed in all directions. The superior surface of the external oblique fascia was exposed. A 8 x 12 cm Bard Ventralex mesh was then placed into the abdomen above the peritoneum with the anti-adhesive surface facing down. The mesh was then secured to the overlying oblique using interrupted Ethibond suture in multiple locations. The fascia was then reapproximated over the mesh with interrupted Ethibond. 30 mL of 0.25% bupivacaine was injected into the subcutaneous space and the fascia. The subcutaneous tissue was then reapproximated with 3-0 Vicryl and the skin closed with a running 4-0 Monocryl followed by Dermabond. Mastisol and Steri-Strips were then used to reinforce the closure and a Aquacel dressing was placed. Patient tolerated procedure well was extubated and returned to recovery room in stable condition Complications: none Post-operative Condition: stable Disposition: same day surgery
[2022-11-26] MEDS: HYDROMORPHONE 2 MG INJ IV ×4 (09:52→10:08)
[2022-11-26] MEDS: OXYCODONE/ACETAMINOPHEN 5/325 TABLET 1 TAB PO (10:04)
== END 2022-11-26 10:58 | disposition home or self-care (01) ==
PROVIDERS: Family Provider Family Medicine; PCP Family Medicine; Referring Provider Surgery; Visit Provider Surgery
PROC: (CPT 49594; principal; 2022-11-26 07:45)
DX: K43.2 Incisional hernia without obstruction or gangrene (principal)
CPT/HCPCS: 49594; J0690; J1100; J1170; J1885; J2250; J2405; J2704; J3010

== ENCOUNTER 2022-12-07 16:00 | Emergency (ER) | payer OTHER, MEDICAID, SELFPAY ==
[2022-11-11 09:57] VITALS: BMI 27.8
[2022-12-07 16:06] VITALS: BP 159/97; PULSE 85; RESP 20; TEMP 37.2; O2SAT 97; BMI 29.2
--- NOTE | 2022-12-07 17:10 | ED.GENADULT ---
HPI - General Adult General Chief complaint: Abdominal Pain Stated complaint: Hernia Repair Done, Looks Like Hernia Came Back Time Seen by Provider: 12/07/22 16:47 Source: patient Mode of arrival: Ambulatory Limitations: no limitations History of Present Illness HPI narrative: Patient is a 26-year-old male who recently underwent an incisional hernia repair this facility. He is a follow-up later this week with general surgeons. He has been following all of the instructions given to him by the general surgeon. He stated that earlier today he noticed that there was some swelling around the incisional site. There has been no drainage. No fevers. No redness. Steri-Strips are still in place. No tenderness. He was concerned that maybe the hernia had returned so came to the emergency department for evaluation. Related Data Home Medications Medication Instructions Recorded Confirmed aspirin 81 mg tablet,delayed 81 mg PO DAILY 11/20/22 11/26/22 release (Adult Low Dose Aspirin) Previous Rx's Medication Instructions Recorded acetaminophen 325 mg capsule 650 mg PO QID PRN pain #60 caps 01/10/22 (Tylenol) ibuprofen 200 mg tablet 400 mg PO Q6H #60 tabs 01/10/22 docusate sodium 100 mg capsule 100 mg PO BID #30 caps 11/26/22 (Colace) oxycodone 5 mg tablet 5 mg PO Q6H PRN pain #30 tabs 11/26/22 Allergies Allergy/AdvReac Type Severity Reaction Status Date / Time No Known Drug Allergies Allergy Verified 11/20/22 14:06 Review of Systems Constitutional Constitutional: Reports system reviewed and no additional complaints, except as documented Gastrointestinal Gastrointestinal: Reports system reviewed and no additional complaints, except as documented Integumentary/Breasts Skin/Breast: Reports system reviewed and no additional complaints, except as documented Hematologic/Lymphatic On Anticoagulants: No Patient History Medical History Atrial fibrillation Hepatitis C IV drug abuse MRSA exposure Surgical History Hx laparoscopic cholecystectomy (01/08/22) Family History Father No significant medical problems Mother No significant medical problems Grandfather Cancer Grandfather Cancer Social History household members: family Smoking Status: Current every day smoker alcohol intake: current Smoking Status: Current every day smoker tobacco type: cigarettes and vaping alcohol intake frequency: holidays/special occasions only Substance Use Type: does not use and former substance user Exam Initial Vital Signs Initial Vital Signs: Vital Signs Temperature 98.9 F 12/07/22 16:06 Pulse Rate 85 12/07/22 16:06 Respiratory Rate 20 12/07/22 16:06 Blood Pressure 159/97 H 12/07/22 16:06 Pulse Oximetry 97 12/07/22 16:06 Oxygen Delivery Method 12/07/22 16:06 Const General: cooperative, comfortable and No ill appearing HENMT Head: normal to inspection and normocephalic GI Other: There does appear to be some fluctuance around the incision site. It is not tender to palpation. There is no drainage from the incision. It is not tender to palpation. Skin Other: Incision over the right upper quadrant consistent with his stated history. They are Steri-Strips in place. There is no redness around the incision. No drainage. Course Vital Signs Vital signs: Vital Signs - 8 hr 12/07/22 16:06 Temperature 98.9 F Pulse Rate 85 Respiratory Rate 20 Blood Pressure 159/97 H Pulse Oximetry 97 Oxygen Delivery Method Room Air Medical Decision Making Medical Records Medical records reviewed: Yes I reviewed the patient's medical records. [facility] Narrative Medical decision making narrative: He does have an incision in his right upper quadrant that is consistent with the stated recent surgical history. He is afebrile. The wound appears to be intact. There is no dehiscence. The Steri-Strips in place. There is no drainage. There is no surrounding erythema. There does appear to be some fluctuance/fluid collection under the incision site. It is not warm to the touch. Considered seroma, abscess, return of the hernia, cellulitis. Given his presentation today do have low suspicion for an infectious process. I have a higher suspicion that this is a seroma although it did seem to develop rather quickly. I also and some concern that potentially the hernia has reoccurred. I did discuss the case with Dr. Elder who is on-call for General surgery. We will hold on further workup for now. Will have the patient contact the general surgery clinic tomorrow to be seen tomorrow in the clinic. He was given strict return precautions. He expressed understanding and agreement. Discharge Plan Departure Patient Disposition: Home Clinical Impression: Postoperative complication Activity Restrictions/Additional Instructions: Follow all of the postoperative instructions given to you by the general surgeon. Tomorrow when the general surgery office opens contact them. Dr. Elder would like to have you follow-up in the clinic tomorrow. Return to the emergency department for any new symptoms. Prescriptions: No Action aspirin [Adult Low Dose Aspirin] 81 mg tablet,delayed release (DR/EC) 81 mg PO DAILY ibuprofen 200 mg tablet 400 mg PO Q6H Qty: 60 0RF acetaminophen [Tylenol] 325 mg capsule 650 mg PO QID PRN (Reason: pain) Qty: 60 0RF docusate sodium [Colace] 100 mg capsule 100 mg PO BID Qty: 30 0RF oxycodone 5 mg tablet 5 mg PO Q6H PRN (Reason: pain) Qty: 30 0RF Referrals: Devora Medina DO [Primary Care Provider] - Stand Alone Forms: Patient Portal/API
== END 2022-12-07 17:46 | disposition home or self-care (01) ==
PROVIDERS: Emergency Provider Emergency Medicine; Family Provider Family Medicine; PCP Family Medicine
DX: Z98.890 Other specified postprocedural states (principal); R22.2 Localized swelling, mass and lump, trunk
CPT/HCPCS: 99281

== ENCOUNTER 2023-09-03 22:30 | Emergency (ER) | payer OTHER, MEDICAID, SELFPAY ==
[2022-11-11 09:57] VITALS: BMI 27.8
[2023-09-03 22:33] VITALS: PULSE 100; RESP 16; O2SAT 93
[2023-09-03 22:36] VITALS: BP 148/79; PULSE 102; RESP 16; TEMP 36.5; O2SAT 94; BMI 31.6
[2023-09-03] MEDS: ONDANSETRON 4 MG/2 ML INJ IV (22:57)
[2023-09-03 23:00] VITALS: BP 121/70; PULSE 111; RESP 14
--- NOTE | 2023-09-03 23:07 | ED.GENADULT ---
HPI - General Adult General Chief complaint: Unresponsive Stated complaint: OD Time Seen by Provider: 09/03/23 22:42 Source: patient Mode of arrival: EMS History of Present Illness HPI narrative: Patient is a 27-year-old male who arrived by EMS for evaluation of a probable overdose. He did receive Narcan both intranasal and IV prior to arrival. Patient states he was with his girlfriend. He was drinking alcohol. He states they went to a bar. He told his girlfriend that he needed to go use the restroom. He states the next thing that he knew he was waking up in the back of an ambulance. He does not remember taking any sort of opioids or other substances other than alcohol. He does admit to being somewhat intoxicated. He has had a history of alcohol abuse in the past. When EMS arrived they did give intranasal Narcan which did reverse his apnea. He then became more somnolent again so an IV was started and he was given Narcan once again. Here in the emergency department he is no specific symptoms. Related Data Home Medications Medication Instructions Recorded Confirmed aspirin 81 mg tablet,delayed 81 mg PO DAILY 11/20/22 12/25/22 release (Adult Low Dose Aspirin) Previous Rx's Medication Instructions Recorded acetaminophen 325 mg capsule 650 mg (2 x 325 mg) PO QID PRN 01/10/22 (Tylenol) pain #60 caps ibuprofen 200 mg tablet 400 mg (2 x 200 mg) PO Q6H #60 tabs 01/10/22 docusate sodium 100 mg capsule 100 mg PO BID #30 caps 11/26/22 (Colace) naloxone 4 mg/actuation nasal 4 mg intranasal Q3M PRN opioid 09/04/23 spray (Narcan) overdose #2 ea Allergies Allergy/AdvReac Type Severity Reaction Status Date / Time No Known Drug Allergies Allergy Verified 12/25/22 09:50 Review of Systems Constitutional Constitutional: Reports system reviewed and no additional complaints, except as documented Cardiovascular Cardiovascular: Reports system reviewed and no additional complaints, except as documented Respiratory Respiratory: Reports system reviewed and no additional complaints, except as documented Gastrointestinal Gastrointestinal: Reports system reviewed and no additional complaints, except as documented Neurologic Neurologic: Reports system reviewed and no additional complaints, except as documented Patient History Medical History Hepatitis C MRSA exposure Atrial fibrillation IV drug abuse Surgical History Hx laparoscopic cholecystectomy (01/08/22) Family History Father No significant medical problems Mother No significant medical problems Grandfather Cancer Grandfather Cancer Social History household members: family Smoking Status: Current every day smoker alcohol intake: current Smoking Status: Current every day smoker tobacco type: cigarettes and vaping alcohol intake frequency: a few times a week Substance Use Type: does not use and former substance user Exam Initial Vital Signs Initial Vital Signs: Vital Signs Pulse Rate 100 H 09/03/23 22:33 Respiratory Rate 16 09/03/23 22:33 Pulse Oximetry 93 09/03/23 22:33 Const General: cooperative, comfortable and No ill appearing HENMT Head: normal to inspection and normocephalic Resp Effort & Inspection: normal respiratory effort Auscultation: clear to auscultation bilaterally Cardio Rate: regular rate Rhythm: regular rhythm GI Inspection: normal to inspection Skin General: no rashes or lesions noted Neuro General: patient alert, patient awake, patient oriented x3 and moves all extremities Extrem General: normal to inspection and capillary refill normal Course Orders Ordered: Discontinued Medications Ondansetron HCl (Ondansetron 4 Mg/2 Ml Inj) 4 mg IV NOW ONE Stop: 09/03/23 22:52 Last Admin: 09/03/23 22:57 Dose: 4 mg Documented By: FERNANDO Vital Signs Vital signs: Vital Signs - 8 hr 09/03/23 22:33 09/03/23 22:36 09/03/23 23:00 Temperature 97.7 F Pulse Rate 100 H 102 H Respiratory Rate 16 16 Blood Pressure 148/79 H 121/70 Pulse Oximetry 93 94 Oxygen Delivery Method Room Air 09/03/23 23:00 09/03/23 23:30 09/03/23 23:30 Temperature Pulse Rate 111 H 122 H Respiratory Rate 14 20 Blood Pressure 152/88 H Pulse Oximetry Oxygen Delivery Method Medical Decision Making MDM Narrative Medical decision making narrative: Patient has been alert and oriented here in the ER. Has had no respiratory depression. No signs of trauma. Given his response to Narcan I would suspect that there was some sort of opioid ingestion although the patient states he does not remember taking anything. He did have 1 episode of vomiting here in the ER which improved with Zofran. He was observed for greater than 2 hours after the last dose of Narcan without any return of the somnolence. Will discharge patient home. Discharge Plan Departure Patient Disposition: Home Clinical Impression: Opioid overdose Instructions: DI for Drug Overdose in Adults, Naloxone for Opiate Overdose - KEVIN Activity Restrictions/Additional Instructions: No driving for the next 24 hours. A prescription for Narcan was sent to [facility]. Contact your primary doctor for follow-up. Return to the emergency department for new or worsening symptoms. Prescriptions: New naloxone [Narcan] 4 mg/actuation spray,non-aerosol 4 mg intranasal Q3M PRN (Reason: opioid overdose) Qty: 2 0RF Rx Instructions: spray 1 dose into ONE nostril; alternate nostrils w each dose until help arrives No Action aspirin [Adult Low Dose Aspirin] 81 mg tablet,delayed release (DR/EC) 81 mg PO DAILY ibuprofen 200 mg tablet 400 mg PO Q6H Qty: 60 0RF acetaminophen [Tylenol] 325 mg capsule 650 mg PO QID PRN (Reason: pain) Qty: 60 0RF docusate sodium [Colace] 100 mg capsule 100 mg PO BID Qty: 30 0RF Referrals: Devora Medina DO [Primary Care Provider] - Stand Alone Forms: Patient Portal/API, Naloxone Standing Order KEVIN
[2023-09-03 23:30] VITALS: BP 152/88; PULSE 122; RESP 20
[2023-09-04] VITALS: BP 138/82; PULSE 104; RESP 19
[2023-09-04 00:30] VITALS: BP 131/75; PULSE 103; RESP 14
== END 2023-09-04 00:35 | disposition home or self-care (01) ==
PROVIDERS: Emergency Provider Emergency Medicine; Family Provider Family Medicine; PCP Family Medicine
DX: T40.2X1A Poisoning by other opioids, accidental (unintentional), initial encounter (principal)
CPT/HCPCS: 96374; 99284; J2405

== ENCOUNTER 2023-09-06 16:19 | Emergency (ER) | payer OTHER, MEDICAID, SELFPAY ==
[2022-11-11 09:57] VITALS: BMI 27.8
[2023-09-06] VITALS (7 sets, daily range): BP systolic 129–147; BP diastolic 86–95; PULSE 70–89; RESP 12–22; TEMP 37; O2SAT 97–99; BMI 29.9
--- NOTE | 2023-09-06 16:40 | DI.RAD.S_ITS ---
PROCEDURE: XR CHEST 1V INDICATIONS: chest pain TECHNIQUE: One view of the chest was acquired. COMPARISON: [facility], CT, CT ANGIO CHEST, 04/08/2022, 11:11. [facility], CR, XR CHEST 2V, 09/09/2021, 13:54. FINDINGS: Surgical changes and devices: None. Lungs and pleura: On this semiupright portable chest examination, no large pneumothorax or large pleural effusions are seen. No focal infiltrates are seen. Low lung volumes are noted. This causes a crowded appearance to the lung markings and limits evaluation. Mediastinum: Mediastinal contours appear normal. Heart size is normal. Bones and chest wall: No suspicious bony lesions. Overlying soft tissues appear unremarkable. IMPRESSION: Limited portable chest examination, without a significant cardiopulmonary abnormality identified. Dictated by: Darryn Arshad M.D. on 09/06/2023 at 16:02 Approved by: Darryn Arshad M.D. on 09/06/2023 at 16:03
[2023-09-06 16:49] LABS: Add Manual Diff / Slide Review NO; Basophils Absolute Auto 100 /uL (0-100); Basophils Percent Auto 0.6 % (0-2); Eosinophils Absolute Auto 100 /uL (0-450); Hematocrit 47.2 % (41-53); Hemoglobin 16.5 g/dL (13.5-17.5); Lymphocytes Absolute Auto 3000 /uL (1100-4500); Mean Corpuscular HGB Conc 34.9 % (30-36); Mean Corpuscular Hemoglobin 31.6 PG (26-34); Mean Corpuscular Volume 90.5 fL (80-100); Monocytes Absolute Auto 600 /uL (0-900); Monocytes Percent Auto 5.3 % (3-14); Neutrophils Absolute Auto 7400 /uL (1500-7000); Neutrophils Percent Auto 66.1 % (50-75); Platelet Count 317 X10^3/uL (150-400); Red Blood Cell Count 5.22 X10^6/uL (4.5-5.9); White Blood Cell Count 11.2 X10^3/uL (4.5-11.0)
[2023-09-06 16:50] LABS: Prothrombin Time 11.5 SECONDS (10.1-12.7)
--- NOTE | 2023-09-06 16:52 | ED.NAVMDI ---
HPI - Nausea/Vomiting/Diarrhea <David Hodgson PA-C - Last Filed: 09/06/23 18:39> General Chief complaint: Nausea/Vomiting/Diarrhea Stated complaint: OD T-4, SOB, NAUSEA, NOT SLEEPING Time Seen by Provider: 09/06/23 16:49 History of Present Illness HPI Narrative: This is a 27-year-old male presents to the emergency department due to ?feeling like crap?. He reports some nausea, 5 episodes of vomiting, diarrhea, myalgia, and ?just not feeling well?. He also reports some mild chest pain. He denies any fevers. Does state that he is had some upper respiratory congestion and cough. Patient states that he only drinks alcohol 1 to 2 times a week and states that these symptoms feel different than any kind of withdrawal symptoms he has had in the past. He denies any drug use since his fentanyl overdose 3 days ago. Reported history of AFib with 1 ablation last year. He states his AFib has improved since then he is not taken any medications for it. Related Data Home Medications Medication Instructions Recorded Confirmed aspirin 81 mg tablet,delayed 81 mg PO DAILY 11/20/22 12/25/22 release (Adult Low Dose Aspirin) Previous Rx's Medication Instructions Recorded acetaminophen 325 mg capsule 650 mg (2 x 325 mg) PO QID PRN 01/10/22 (Tylenol) pain #60 caps ibuprofen 200 mg tablet 400 mg (2 x 200 mg) PO Q6H #60 tabs 01/10/22 docusate sodium 100 mg capsule 100 mg PO BID #30 caps 11/26/22 (Colace) naloxone 4 mg/actuation nasal 4 mg intranasal Q3M PRN opioid 09/04/23 spray (Narcan) overdose #2 ea ondansetron 4 mg oral soluble film 4 mg PO Q8H PRN nausea and 09/06/23 vomiting #30 ea Allergies Allergy/AdvReac Type Severity Reaction Status Date / Time No Known Drug Allergies Allergy Verified 09/06/23 16:28 Review of Systems <David Hodgson PA-C - Last Filed: 09/06/23 18:39> Review of Systems Narrative: GENERAL: Denies chills, fatigue, malaise, fever, sweats. HEENT: Denies sinus pain, ear pain, sore throat, difficulty swallowing, dizziness. RESPIRATORY: Denies dyspnea, cough, wheezing, hemoptysis, sputum. CARDIOVASCULAR: Denies chest pain, palpitations, orthopnea, edema, GASTROINTESTINAL: Reports nausea, vomiting, diarrhea Denies abdominal pain, , constipation, melena. : Denies dysuria, frequency, incontinence, hematuria, urinary retention. MUSCULOSKELETAL: denies weakness, joint pain, or bony pain SKIN: Denies rash, skin lesions, or other NEUROLOGIC: Denies weakness, headache, numbness, change in speech, confusion, seizures, incoordination. PSYCHIATRIC: No concerning psychosocial issues. 12 point review of systems is negative except for those stated above Patient History <David Hodgson PA-C - Last Filed: 09/06/23 18:39> Medical History Hepatitis C MRSA exposure Atrial fibrillation IV drug abuse Surgical History Hx laparoscopic cholecystectomy (01/08/22) Family History Father No significant medical problems Mother No significant medical problems Grandfather Cancer Grandfather Cancer Social History household members: family Smoking Status: Current every day smoker alcohol intake: current Smoking Status: Current every day smoker tobacco type: cigarettes and vaping alcohol intake frequency: a few times a week Substance Use Type: does not use and former substance user Exam <David Hodgson PA-C - Last Filed: 09/06/23 18:39> Narrative Exam Narrative: GENERAL: Well-developed patient, in mild distress. HEAD: Atraumatic. Normocephalic. EYES: Pupils equal round and reactive. Extraocular motions intact. No scleral icterus. No injection or drainage. ENT: Nose without bleeding, purulent drainage. Throat without erythema, tonsillar hypertrophy or exudate. Airway patent. NECK: Trachea midline. Non tender CARDIOVASCULAR: Regular rate and rhythm without murmurs, gallops, or rubs. RESPIRATORY: Clear to auscultation. Breath sounds equal bilaterally. No wheezes, rales, or rhonchi. GASTROINTESTINAL: Abdomen soft, mild generalized tenderness to palpation, nondistended EXTREMITIES: No edema or joint tenderness. BACK: Nontender without deformity or crepitance. No flank tenderness. NEURO: AOx3. SKIN: No rash or erythema of visible areas Initial Vital Signs Initial Vital Signs: Vital Signs Temperature 98.6 F 09/06/23 16:23 Pulse Rate 89 09/06/23 16:23 Respiratory Rate 18 09/06/23 16:23 Blood Pressure 142/91 H 09/06/23 16:23 Pulse Oximetry 99 09/06/23 16:23 Oxygen Delivery Method Room Air 09/06/23 16:23 <Leatha Raya DO - Last Filed: 09/07/23 07:32> Initial Vital Signs Initial Vital Signs: Vital Signs Temperature 98.6 F 09/06/23 16:23 Pulse Rate 89 09/06/23 16:23 Respiratory Rate 18 09/06/23 16:23 Blood Pressure 142/91 H 09/06/23 16:23 Pulse Oximetry 99 09/06/23 16:23 Oxygen Delivery Method Room Air 09/06/23 16:23 Course <David Hodgson PA-C - Last Filed: 09/06/23 18:39> Orders Ordered: Discontinued Medications Aspirin (Aspirin 81 Mg Chew Tab) 324 mg PO NOW ONE Stop: 09/06/23 16:41 Last Admin: 09/06/23 17:38 Dose: Not Given Documented By: EDWIN Sodium Chloride (Normal Saline 0.9%) 1,000 mls @ 1,000 mls/hr IV BOLUS ONE Stop: 09/06/23 18:28 Last Infusion: 09/06/23 18:28 Dose: Infused Documented By: Admin: 09/06/23 17:38 Dose: 1,000 mls/hr Documented By: EDWIN Sodium Chloride (Normal Saline 0.9%) 1,000 mls @ 1,000 mls/hr IV BOLUS ONE Stop: 09/06/23 19:28 Ondansetron HCl (Ondansetron 4 Mg/2 Ml Inj) 4 mg IV NOW ONE Stop: 09/06/23 18:30 Last Admin: 09/06/23 18:33 Dose: 4 mg Documented By: STORM Vital Signs Vital signs: Vital Signs - 8 hr 09/06/23 16:23 09/06/23 16:36 09/06/23 16:49 Temperature 98.6 F Pulse Rate 89 83 77 Respiratory Rate 18 12 14 Blood Pressure 142/91 H Pulse Oximetry 99 97 Oxygen Delivery Method Room Air 09/06/23 16:49 09/06/23 17:00 09/06/23 17:00 Temperature Pulse Rate 84 Respiratory Rate 13 Blood Pressure 131/87 142/90 H Pulse Oximetry 97 Oxygen Delivery Method 09/06/23 17:30 09/06/23 17:30 Temperature Pulse Rate 80 Respiratory Rate 19 Blood Pressure 147/95 H Pulse Oximetry 97 Oxygen Delivery Method Room Air <Leatha Raya DO - Last Filed: 09/07/23 07:32> Orders Ordered: Discontinued Medications Aspirin (Aspirin 81 Mg Chew Tab) 324 mg PO NOW ONE Stop: 09/06/23 16:41 Last Admin: 09/06/23 17:38 Dose: Not Given Documented By: EDWIN Sodium Chloride (Normal Saline 0.9%) 1,000 mls @ 1,000 mls/hr IV BOLUS ONE Stop: 09/06/23 18:28 Last Infusion: 09/06/23 18:28 Dose: Infused Documented By: Admin: 09/06/23 17:38 Dose: 1,000 mls/hr Documented By: EDWIN Sodium Chloride (Normal Saline 0.9%) 1,000 mls @ 1,000 mls/hr IV BOLUS ONE Stop: 09/06/23 19:28 Ondansetron HCl (Ondansetron 4 Mg/2 Ml Inj) 4 mg IV NOW ONE Stop: 09/06/23 18:30 Last Admin: 09/06/23 18:33 Dose: 4 mg Documented By: STORM Vital Signs Vital signs: Vital Signs - 8 hr 09/06/23 16:23 09/06/23 16:36 09/06/23 16:49 Temperature 98.6 F Pulse Rate 89 83 77 Respiratory Rate 18 12 14 Blood Pressure 142/91 H Pulse Oximetry 99 97 Oxygen Delivery Method Room Air 09/06/23 16:49 09/06/23 17:00 09/06/23 17:00 Temperature Pulse Rate 84 Respiratory Rate 13 Blood Pressure 131/87 142/90 H Pulse Oximetry 97 Oxygen Delivery Method 09/06/23 17:30 09/06/23 17:30 Temperature Pulse Rate 80 Respiratory Rate 19 Blood Pressure 147/95 H Pulse Oximetry 97 Oxygen Delivery Method Room Air MDM - Nausea/Vomiting/Diarrhea <David Hodgson PA-C - Last Filed: 09/06/23 18:39> Lab Data 09/06/23 16:35 09/06/23 16:35 Labs: Lab Results 09/06/23 09/06/23 Range/Units 16:35 17:28 WBC 11.2 H (4.5-11.0) X10^3/uL RBC 5.22 (4.5-5.9) X10^6/uL Hgb 16.5 (13.5-17.5) g/dL Hct 47.2 (41-53) % MCV 90.5 (80-100) fL MCH 31.6 (26-34) PG MCHC 34.9 (30-36) % RDW 13.0 (11.6-14.8) % Plt Count 317 (150-400) X10^3/uL Neut % (Auto) 66.1 (50-75) % Lymph % (Auto) 27.0 (25-40) % [place] % (Auto) 5.3 (3-14) % Eos % (Auto) 1.0 L (2-4) % Baso % (Auto) 0.6 (0-2) % Neut # (Auto) 7400 H (5731-7751) /uL Lymph # (Auto) 3000 (8985-4001) /uL [place] # (Auto) 600 (0-900) /uL Eos # (Auto) 100 (0-450) /uL Baso # (Auto) 100 (0-100) /uL PT 11.5 (10.1-12.7) SECONDS INR 1.0 (0.9-1.3) APTT 33 (26-36) SECONDS Sodium 141 (137-145) mmol/L Potassium 4.5 (3.4-5.1) mmol/L Chloride 104 (98-107) mmol/L Carbon Dioxide 28 (22-32) mmol/L BUN 12 (9-20) mg/dL Creatinine 0.93 (0.66-1.25) mg/dL Estimated GFR > 60 (>60) mL/min BUN/Creatinine Ratio 12.9 (6-22) Glucose 123 H (70-100) mg/dL Calcium 10.2 (8.4-10.2) mg/dL Magnesium 2.1 (1.6-2.3) mg/dL Total Bilirubin 0.6 (0.2-1.3) mg/dL AST 43 (17-59) IU/L ALT 49 (<50) IU/L Alkaline Phosphatase 48 (38-126) U/L Total Creatine Kinase 147 (55-170) U/L Troponin I < 0.012 (0.01-0.034) ng/mL Total Protein 7.9 (6.3-8.2) g/dL Albumin 4.5 (3.5-5.0) g/dL Globulin 3.4 (1.7-4.1) g/dL Albumin/Globulin Ratio 1.3 (1.0-2.8) Lipase 133 (23-300) U/L SARS-CoV-2 (PCR) Negative (Negative) Influenza A (RT-PCR) Flu a negative (NEGATIVE) Influenza B (RT-PCR) Flu b negative (NEGATIVE) RSV (PCR) Negative (Negative) MDM Narrative Medical decision making narrative: MDM * differential diagnosis includes but not limited to alcohol withdrawal, opiate withdrawal, fentanyl overdose, dehydration, COVID, flu * Prior records reviewed: Patient was seen here 3 days ago for opiate overdose. He received Narcan intranasal and IV prior to arrival. History of alcohol abuse. He was seen in the emergency department without any abnormal symptoms. He was alert and oriented in the ER. No respiratory depression. No signs of trauma. He was observed for greater than 2 hours after the last dose of Narcan without any return of the somnolence. Patient was discharged home. * My lab interpretation: CMP unremarkable, CBC showed very mild leukocytosis of 11.2. Lipase within normal limits, troponin within normal limits * My imgaing interpretation: Chest x-ray unremarkable * Clinical Decision Rules/Scores evaluated: None * Independent discussions with: None ED Course: This is a 19-year-old male presents to the emergency department due to nausea vomiting, diarrhea, and myalgia for the last couple of days. He states that after he overdosed on fentanyl 3 days ago he came into the emergency department after receiving Narcan. He was feeling much better after being discharged but began to develop these symptoms over the last couple of days. He denies any significant alcohol use. States he has 1-2 drinks a week. Denies any other drug use. His lab work came back reassuring. His COVID, flu, and RSV testing were all negative. He was given a L of fluids and Zofran which she states made him feel much better. His EKG was unremarkable. Patient will be discharged with instructions for conservative symptomatic management. Shared Decision Making: Discussed plan with the patient who is comfortable with the plan. Social Considerations: None Disposition: Discharged home <Leatha Raya - Last Filed: 09/07/23 07:32> Lab Data Labs: Lab Results 09/06/23 09/06/23 Range/Units 16:35 17:28 WBC 11.2 H (4.5-11.0) X10^3/uL RBC 5.22 (4.5-5.9) X10^6/uL Hgb 16.5 (13.5-17.5) g/dL Hct 47.2 (41-53) % MCV 90.5 (80-100) fL MCH 31.6 (26-34) PG MCHC 34.9 (30-36) % RDW 13.0 (11.6-14.8) % Plt Count 317 (150-400) X10^3/uL Neut % (Auto) 66.1 (50-75) % Lymph % (Auto) 27.0 (25-40) % [place] % (Auto) 5.3 (3-14) % Eos % (Auto) 1.0 L (2-4) % Baso % (Auto) 0.6 (0-2) % Neut # (Auto) 7400 H (2969-7326) /uL Lymph # (Auto) 3000 (5400-7104) /uL [place] # (Auto) 600 (0-900) /uL Eos # (Auto) 100 (0-450) /uL Baso # (Auto) 100 (0-100) /uL PT 11.5 (10.1-12.7) SECONDS INR 1.0 (0.9-1.3) APTT 33 (26-36) SECONDS Sodium 141 (137-145) mmol/L Potassium 4.5 (3.4-5.1) mmol/L Chloride 104 (98-107) mmol/L Carbon Dioxide 28 (22-32) mmol/L BUN 12 (9-20) mg/dL Creatinine 0.93 (0.66-1.25) mg/dL Estimated GFR > 60 (>60) mL/min BUN/Creatinine Ratio 12.9 (6-22) Glucose 123 H (70-100) mg/dL Calcium 10.2 (8.4-10.2) mg/dL Magnesium 2.1 (1.6-2.3) mg/dL Total Bilirubin 0.6 (0.2-1.3) mg/dL AST 43 (17-59) IU/L ALT 49 (<50) IU/L Alkaline Phosphatase 48 (38-126) U/L Total Creatine Kinase 147 (55-170) U/L Troponin I < 0.012 (0.01-0.034) ng/mL Total Protein 7.9 (6.3-8.2) g/dL Albumin 4.5 (3.5-5.0) g/dL Globulin 3.4 (1.7-4.1) g/dL Albumin/Globulin Ratio 1.3 (1.0-2.8) Lipase 133 (23-300) U/L SARS-CoV-2 (PCR) Negative (Negative) Influenza A (RT-PCR) Flu a negative (NEGATIVE) Influenza B (RT-PCR) Flu b negative (NEGATIVE) RSV (PCR) Negative (Negative) ECG Data Attestation: I personally reviewed and interpreted this ECG as follows: Interpretation: Mank: Sinus rhythm rate 82 [place] 162 QRS of 90 QTC of 406. No acute ST elevation depression noted. Discharge Plan Departure Patient Disposition: Home Clinical Impression: Dehydration Instructions: DI for Dehydration -- Adult Activity Restrictions/Additional Instructions: Thank you for coming to the [facility] Emergency Department today. I am glad you are feeling better after the L of fluids. Your lab work today was very reassuring. There were no obvious sources or signs of infection or electrolyte abnormality. We COVID and flu and RSV testing were also negative. Please continue to get plenty of rest and fluids and I suspect your symptoms should be improving soon. I sent him medication to [facility] in [place] I hope you feel better soon. Please follow up with your primary care provider within a week if your symptoms continue. If you do not have a primary care provider please contact the [facility] Resource line at [phone]. They will ask some questions about your medical history and help you get set up with a provider in the community. Prescriptions: New ondansetron 4 mg film 4 mg PO Q8H PRN (Reason: nausea and vomiting) Qty: 30 0RF No Action aspirin [Adult Low Dose Aspirin] 81 mg tablet,delayed release (DR/EC) 81 mg PO DAILY ibuprofen 200 mg tablet 400 mg PO Q6H Qty: 60 0RF acetaminophen [Tylenol] 325 mg capsule 650 mg PO QID PRN (Reason: pain) Qty: 60 0RF docusate sodium [Colace] 100 mg capsule 100 mg PO BID Qty: 30 0RF naloxone [Narcan] 4 mg/actuation spray,non-aerosol 4 mg intranasal Q3M PRN (Reason: opioid overdose) Qty: 2 0RF Rx Instructions: spray 1 dose into ONE nostril; alternate nostrils w each dose until help arrives Referrals: Devora Medina DO [Primary Care Provider] - Stand Alone Forms: Patient Portal/API ED Sign-out <Leatha Raya DO - Last Filed: 09/07/23 07:32> Cosign ED Attending Cosignature Attestation: I was immediately available in the department for consultation. Documentation has been reviewed.
[2023-09-06 16:53] LABS: PTT Partial Thromboplastin Tim 33 SECONDS (26-36)
[2023-09-06 16:56] LABS: Alanine Aminotransferase 49 IU/L (<50); Albumin 4.5 g/dL (3.5-5.0); Albumin Globulin Ratio 1.3 (1.0-2.8); Alkaline Phosphatase 48 U/L (38-126); Aspartate Aminotransferase 43 IU/L (17-59); BUN Creatinine Ratio 12.9 (6-22); Bilirubin Total 0.6 mg/dL (0.2-1.3); Blood Urea Nitrogen 12 mg/dL (9-20); Calcium 10.2 mg/dL (8.4-10.2); Carbon Dioxide 28 mmol/L (22-32); Chloride 104 mmol/L (98-107); Creatine Kinase 147 U/L (55-170); Estimated Glomerular Filt Rate > 60 mL/min (>60); Globulin 3.4 g/dL (1.7-4.1); Glucose 123 mg/dL (70-100); HEMOLYSIS 25 (0-50); Lipase 133 U/L (23-300); Magnesium 2.1 mg/dL (1.6-2.3); Potassium 4.5 mmol/L (3.4-5.1); Sodium 141 mmol/L (137-145); Total Protein 7.9 g/dL (6.3-8.2)
[2023-09-06 17:07] LABS: Troponin I < 0.012 ng/mL (0.01-0.034)
[2023-09-06] MEDS: SODIUM CHLORIDE 0.9% 1,000 ML 1000 ML IV (17:38)
[2023-09-06 18:13] LABS: Influenza A - CEPHEID Flu A NEGATIVE (NEGATIVE); Influenza B - CEPHEID Flu B NEGATIVE (NEGATIVE); Respiratory Syncytial Virus Negative (Negative)
[2023-09-06 18:16] LABS: COVID-19 CEPHEID 4-PLEX PCR Negative (Negative)
[2023-09-06] MEDS: ONDANSETRON 4 MG/2 ML INJ IV (18:33)
== END 2023-09-06 18:48 | disposition home or self-care (01) ==
PROVIDERS: Emergency Medicine; Emergency Provider Physician Assistant Medical; Family Provider Family Medicine; PCP Family Medicine
DX: E86.0 Dehydration (principal); R07.9 Chest pain, unspecified; R11.2 Nausea with vomiting, unspecified; R19.7 Diarrhea, unspecified; Z20.822 Contact with and (suspected) exposure to COVID-19
CPT/HCPCS: 0241U; 36415; 71045; 80053; 82550; 83690; 83735; 84484; 85025; 85610; 85730; 93005; 96361; 96374; 99284; J2405

== ENCOUNTER 2023-10-14 20:43 | Emergency (ER) | payer OTHER, MEDICAID, SELFPAY ==
[2022-11-11 09:57] VITALS: BMI 27.8
[2023-10-14 20:47] VITALS: BP 169/86; PULSE 110; RESP 20; TEMP 37.2; O2SAT 100; BMI 29.2
--- NOTE | 2023-10-14 20:52 | DI.RAD.S_ITS ---
PROCEDURE: XR SHOULDER LT MIN 2V INDICATIONS: fell yesterday/pain TECHNIQUE: 2 views of the shoulder were acquired. COMPARISON: None. FINDINGS: Bones: No fractures or dislocations. No suspicious bony lesions. Visualized ribs appear intact. Soft tissues: No suspicious soft tissue calcifications. IMPRESSION: Left shoulder without acute fracture or dislocation. If there is persistent clinical concern for occult fracture given adequate mechanism of injury, consider repeat imaging in 10-14 days. Dictated by: Jose Tavarez M.D. on 10/14/2023 at 21:59 Approved by: Joes Tavarez M.D. on 10/14/2023 at 22:00
[2023-10-14 21:59] VITALS: PULSE 90; O2SAT 96
[2023-10-14 22:00] VITALS: BP 152/80; PULSE 85; O2SAT 96
[2023-10-14 22:30] VITALS: BP 147/75; PULSE 91; RESP 18; O2SAT 98
--- NOTE | 2023-10-14 22:38 | ED.GENADULT ---
HPI - General Adult General Chief complaint: Extremity Injury, Upper Stated complaint: lt shoulder injury Time Seen by Provider: 10/14/23 21:37 Source: patient Mode of arrival: Ambulatory History of Present Illness HPI narrative: 27-year-old male here for evaluation of left shoulder injury. Yesterday he states that he fell and landed on his back/left shoulder while ice skating. Has had difficulty with moving his shoulder since then. No other injuries from the event. No prior injuries to the shoulder. Did not hit his head. Not on anticoagulation. No discomfort to the left elbow or left wrist. Related Data Home Medications Medication Instructions Recorded Confirmed aspirin 81 mg tablet,delayed 81 mg PO DAILY 11/20/22 12/25/22 release (Adult Low Dose Aspirin) Previous Rx's Medication Instructions Recorded acetaminophen 325 mg capsule 650 mg (2 x 325 mg) PO QID PRN 01/10/22 (Tylenol) pain #60 caps ibuprofen 200 mg tablet 400 mg (2 x 200 mg) PO Q6H #60 tabs 01/10/22 docusate sodium 100 mg capsule 100 mg PO BID #30 caps 11/26/22 (Colace) naloxone 4 mg/actuation nasal 4 mg intranasal Q3M PRN opioid 09/04/23 spray (Narcan) overdose #2 ea ondansetron 4 mg oral soluble film 4 mg PO Q8H PRN nausea and 09/06/23 vomiting #30 ea Allergies Allergy/AdvReac Type Severity Reaction Status Date / Time No Known Drug Allergies Allergy Verified 09/06/23 16:28 Review of Systems Constitutional Constitutional: Reports system reviewed and no additional complaints, except as documented Cardiovascular Cardiovascular: Reports system reviewed and no additional complaints, except as documented Musculoskeletal Musculoskeletal: Reports system reviewed and no additional complaints, except as documented Integumentary/Breasts Skin/Breast: Reports system reviewed and no additional complaints, except as documented Neurologic Neurologic: Reports system reviewed and no additional complaints, except as documented Hematologic/Lymphatic On Anticoagulants: No Patient History Medical History Hepatitis C MRSA exposure Atrial fibrillation IV drug abuse Surgical History Hx laparoscopic cholecystectomy (01/08/22) Family History Father No significant medical problems Mother No significant medical problems Grandfather Cancer Grandfather Cancer Social History household members: family Smoking Status: Current every day smoker alcohol intake: current Smoking Status: Current every day smoker tobacco type: cigarettes alcohol intake frequency: a few times a month Substance Use Type: does not use and former substance user Exam Initial Vital Signs Initial Vital Signs: Vital Signs Temperature 99 F 10/14/23 20:47 Pulse Rate 110 H 10/14/23 20:47 Respiratory Rate 20 10/14/23 20:47 Blood Pressure 169/86 H 10/14/23 20:47 Pulse Oximetry 100 10/14/23 20:47 Oxygen Delivery Method Room Air 10/14/23 20:47 HENMT Head: normal to inspection and normocephalic Chest Chest: No crepitus and No tenderness Resp Effort & Inspection: normal respiratory effort Auscultation: clear to auscultation bilaterally Cardio Rate: regular rate Pulses: radial pulses present on the left Back/Spine/Pelvis Cervical Spine: No cervical spinal tenderness Skin General: no rashes or lesions noted Neuro General: patient alert and patient awake Sensory Exam: no sensory deficits noted Extrem Other: Discomfort with palpation throughout the left shoulder. Discomfort with movement of the left shoulder. His left elbow left wrist unremarkable. Course Orders Ordered: ED Orders 10/14/23 20:52 XR shoulder LT min 2V Stat Vital Signs Vital signs: Vital Signs - 8 hr 10/14/23 20:47 10/14/23 21:59 10/14/23 22:00 Temperature 99 F Pulse Rate 110 H 90 Respiratory Rate 20 Blood Pressure 169/86 H 152/80 H Pulse Oximetry 100 96 Oxygen Delivery Method Room Air Room Air 10/14/23 22:00 10/14/23 22:30 10/14/23 22:30 Temperature Pulse Rate 85 91 H Respiratory Rate 18 Blood Pressure 147/75 H Pulse Oximetry 96 98 Oxygen Delivery Method Medical Decision Making Imaging Data Extremity x-ray #1: Radiologist's Impression: PROCEDURE: XR SHOULDER LT MIN 2V INDICATIONS: fell yesterday/pain TECHNIQUE: 2 views of the shoulder were acquired. COMPARISON: None. FINDINGS: Bones: No fractures or dislocations. No suspicious bony lesions. Visualized ribs appear intact. Soft tissues: No suspicious soft tissue calcifications. IMPRESSION: Left shoulder without acute fracture or dislocation. If there is persistent clinical concern for occult fracture given adequate mechanism of injury, consider repeat imaging in 10-14 days. MDM Narrative Medical decision making narrative: Neurovascularly intact. No fractures or dislocations noted on the x-ray. Difficult to get an accurate exam as he has discomfort with any sort of palpation or movement of the shoulder. I did discuss this with him. He states he would prefer not to be in a sling and I agree with this. Will discharge patient home with restrictions only limited to the discomfort that he is having. He was given return precautions and follow-up instructions. He expressed understanding and agreement. Discharge Plan Departure Patient Disposition: Home Clinical Impression: Left shoulder pain Instructions: How To Perform RICE (Rest, Ice, Compress, Elevate) Activity Restrictions/Additional Instructions: There were no fractures noted on the x-ray. Let your discomfort guide what activities you can perform. Recommend that you contact your primary doctor for a follow-up. Return to the emergency department for new symptoms. Prescriptions: No Action aspirin [Adult Low Dose Aspirin] 81 mg tablet,delayed release (DR/EC) 81 mg PO DAILY ibuprofen 200 mg tablet 400 mg PO Q6H Qty: 60 0RF acetaminophen [Tylenol] 325 mg capsule 650 mg PO QID PRN (Reason: pain) Qty: 60 0RF docusate sodium [Colace] 100 mg capsule 100 mg PO BID Qty: 30 0RF naloxone [Narcan] 4 mg/actuation spray,non-aerosol 4 mg intranasal Q3M PRN (Reason: opioid overdose) Qty: 2 0RF Rx Instructions: spray 1 dose into ONE nostril; alternate nostrils w each dose until help arrives ondansetron 4 mg film 4 mg PO Q8H PRN (Reason: nausea and vomiting) Qty: 30 0RF Referrals: Devora Medina DO [Primary Care Provider] - Stand Alone Forms: Patient Portal/API
== END 2023-10-14 22:45 | disposition home or self-care (01) ==
PROVIDERS: Emergency Provider Emergency Medicine; Family Provider Family Medicine; PCP Family Medicine
DX: M25.512 Pain in left shoulder (principal)
CPT/HCPCS: 73030; 99281; 99282

== ENCOUNTER → 2024-12-13 12:27 | Outpatient (CLI) | payer OTHER, SELFPAY ==
[2022-11-11 09:57] VITALS: BMI 27.8
[2024-12-13 13:41] LABS: COVID-19 CEPHEID 4-PLEX PCR Negative (Negative); Influenza A - CEPHEID Flu A NEGATIVE (NEGATIVE); Influenza B - CEPHEID Flu B NEGATIVE (NEGATIVE); Respiratory Syncytial Virus Negative (Negative)
== END ==
PROVIDERS: Family Provider Family Medicine; PCP Family Medicine; Visit Provider Physician Assistant Surgical
DX: R05.1 Acute cough (principal); J02.9 Acute pharyngitis, unspecified
CPT/HCPCS: 0241U; 87070

== ENCOUNTER → 2024-12-13 12:34 | Outpatient (CLI) | payer OTHER, SELFPAY ==
[2022-11-11 09:57] VITALS: BMI 27.8
--- NOTE | 2024-12-13 12:35 | DI.RAD.S_ITS ---
PROCEDURE: XR CHEST 2V INDICATIONS: Cough, NUNES TECHNIQUE: 2 views of the chest were acquired. COMPARISON: [facility], CR, XR CHEST 1V, 09/06/2023, 16:52. [facility], CR, XR CHEST 2V, 09/09/2021, 13:54. FINDINGS: Surgical changes and devices: None. Lungs and pleura: Likely left basilar opacity. No pleural effusions or pneumothorax. Mediastinum: Mediastinal contours are normal. Heart size is normal. Bones and chest wall: No suspicious bony abnormalities. Soft tissues appear unremarkable. IMPRESSION: Likely left basilar opacity, may represent infection. Dictated by: Nahid Pisano M.D. on 12/13/2024 at 13:11 Approved by: Nahid Pisano M.D. on 12/13/2024 at 13:13
== END ==
PROVIDERS: Family Provider Family Medicine; PCP Family Medicine; Referring Provider Physician Assistant Surgical; Visit Provider Physician Assistant Surgical
DX: J02.9 Acute pharyngitis, unspecified (principal); R05.1 Acute cough
CPT/HCPCS: 0241U; 71046; 87070

== ENCOUNTER → 2024-12-30 14:47 | Outpatient (CLI) | payer OTHER, SELFPAY ==
[2022-11-11 09:57] VITALS: BMI 27.8
--- NOTE | 2024-12-30 14:48 | DI.US.S_ITS ---
PROCEDURE: US ABDOMEN LIMITED INDICATIONS: incisional hernia TECHNIQUE: Real-time focused scanning was performed of the abdomen, with image documentation. COMPARISON: [facility], , US ABDOMEN LIMITED, 01/08/2022, 3:54. FINDINGS: Area of pain and palpable abnormality in the right upper quadrant anterior abdominal wall demonstrates no evidence of abdominal wall hernia, cyst, or solid mass. IMPRESSION: No anterior abdominal wall abnormalities in the area of surgical scar. Dictated by: Nilam Betancourt M.D. on 12/30/2024 at 16:32 Approved by: Nilam Betancourt M.D. on 12/30/2024 at 16:34
== END ==
PROVIDERS: Family Provider Family Medicine; PCP Family Medicine; Referring Provider Family Medicine; Visit Provider Family Medicine
DX: K43.2 Incisional hernia without obstruction or gangrene (principal)
CPT/HCPCS: 76705